=== PATIENT | female | born 1945 | race Caucasian/White ===

== ENCOUNTER → 2018-02-28 16:19 | Outpatient (CLI) | payer MEDICARE, OTHER, SELFPAY ==
--- NOTE | 2018-02-28 | DI.MRI.S_ITS ---
PROCEDURE: MR ANKLE LT WO CON INDICATIONS: Left ankle pain TECHNIQUE: Noncontrast sagittal T1 spin echo and T2 fast spin echo with fat saturation, axial proton density fast spin echo and T2 fast spin echo with fat saturation, coronal T1 spin echo and T2 fast spin echo with fat saturation through the ankle/hindfoot. COMPARISON: None. FINDINGS: Image quality: Diagnostic. Bones and joints: There is no acute fracture, dislocation, or suspicious osseous lesion involving the osseous structures of the midfoot or hindfoot. There is a moderate-sized plantar calcaneal spur with associated marrow edema. The ankle mortise is well-maintained. There are no osteochondral defects involving the tibial plafond through the talar dome. However, there are mild degenerative changes involving the tibiotalar joint and the midfoot joints. Mild marrow edema is noted involving the sesamoids of the great toe. There are prominent marginal osteophytes identified involving the distal aspect of the 1st metatarsal. However, the 1st MTP joint is not completely included on this examination. No large joint effusions are appreciated. Medial structures: The deltoid ligament is somewhat heterogeneous, suggesting scarring. The superomedial band of the spring ligament is thickened, but intact. The plantar components of the spring ligament are within normal limits. There is mild increased signal identified involving the talus posterior tendon at the level of the navicular without significant tear. The flexor hallucis longus and flexor digitorum longus tendons are intact and otherwise within normal limits. Fluid is contained within their corresponding tendon sheaths. There is moderate subcutaneous edema identified overlying the medial aspect of the ankle. The posterior tibial nerve appears to be within normal limits through the region of the tarsal tunnel. Lateral structures: There is prominent thickening and irregularity identified involving the anterior distal tibiofibular ligament without a full-thickness tear. The posterior distal tibiofibular a slightly thickened, but intact. The anterior talofibular ligament is thickened, but intact. There is extensive irregularity of the posterior talofibular ligament. Thickening and increased signal of the calcaneofibular ligament is noted. There is prominent flattening involving the peroneus brevis tendon with a moderate segment longitudinal split tear extending from just above the tip of lateral malleolus to approximately the mid calcaneus. There is corresponding tendinopathy. There also is thickening and increased signal involving the peroneus longus tendon. There is increased signal noted within the sinus tarsi. Anterior structures: The tibialis anterior, extensor hallucis longus, and extensor digitorum longus tendons appear intact. Posterior and plantar structures: Achilles tendon is thickened and mildly edematous along the distal aspect of the tendon without significant tearing. There is prominent thickening involving the medial band of the plantar fascia with associated irregularity and probable partial-thickness tearing. IMPRESSION: 1. Partial-thickness tearing of the plantar fascia with an associated moderate-sized plantar calcaneal spur. Please correlate clinically for plantar fasciitis. 2. Mild to moderate distal Achilles tendinopathy. 3. Moderate segment longitudinal split tear of the peroneus brevis tendon with corresponding tendinopathy. There is mild peroneus longus tendinopathy. 4. Moderate to high-grade partial-thickness tear of the posterior talofibular ligament. Additional lateral ankle ligament scarring is present. 5. Mild distal tibialis posterior tendinopathy. 6. Mild degenerative changes of the midfoot and hindfoot joints. 7. Probable scarring of the spring ligament without a full-thickness tear. Dictated by: Tai Leavitt M.D. on 03/01/2018 at 8:52 Approved by: Tai Leavitt M.D. on 03/01/2018 at 9:23
== END ==
PROVIDERS: Family Provider Family Medicine; PCP Family Medicine; Visit Provider Podiatrist
DX: M25.572 Pain in left ankle and joints of left foot (principal); M77.32 Calcaneal spur, left foot; S96.812A Strain of other specified muscles and tendons at ankle and foot level, left foot, initial encounter; M76.62 Achilles tendinitis, left leg; S93.492A Sprain of other ligament of left ankle, initial encounter
CPT/HCPCS: 73721

== ENCOUNTER → 2018-06-12 08:40 | Outpatient (CLI) | payer MEDICARE, OTHER, SELFPAY ==
[2018-06-12 09:40] LABS: Alanine Aminotransferase 22 IU/L (9-52); Albumin 4.2 g/dL (3.5-5.0); Albumin Globulin Ratio 1.3 (1.0-2.8); Alkaline Phosphatase 57 U/L (38-126); Aspartate Aminotransferase 28 IU/L (14-36); Bilirubin Total 0.7 mg/dL (0.2-1.3); Blood Urea Nitrogen 19 mg/dL (7-17); Calcium 9.8 mg/dL (8.4-10.2); Carbon Dioxide 32 mmol/L (22-32); Chloride 96 mmol/L (98-107); Cholesterol 250 mg/dL (140-199); Estimated Glomerular Filt Rate 54.1 mL/min (>60); Globulin 3.2 g/dL (1.7-4.1); Glucose 96 mg/dL (80-110); HDL Cholesterol 49 mg/dL (40-60); HEMOLYSIS < 15 (0-50); LDL Cholesterol Calculated 170 mg/dL (<100); Sodium 137 mmol/L (137-145); Total Protein 7.4 g/dL (6.3-8.2); Triglycerides 153 mg/dL (35-150)
[2018-06-12 10:21] LABS: Thyroid Stimulating Hormone 2.42 uIU/mL (0.47-4.68)
== END ==
PROVIDERS: PCP Family Medicine; Visit Provider Internal Medicine
DX: E78.00 Pure hypercholesterolemia, unspecified (principal); E03.9 Hypothyroidism, unspecified
CPT/HCPCS: 36415; 80053; 80061; 84443

== ENCOUNTER → 2018-06-26 12:03 | Outpatient (CLI) | payer MEDICARE, OTHER, SELFPAY ==
[2018-06-26 12:22] LABS: Hematocrit 43.1 % (36-46); Hemoglobin 14.6 g/dL (12.0-16.0); Mean Corpuscular Hemoglobin 30.5 PG (26-34); Mean Corpuscular Volume 89.7 fL (80-100); Platelet Count 258 X10^3/uL (150-400); Red Cell Distribution Width 13.4 % (11.6-14.8); White Blood Cell Count 6.2 X10^3/uL (4.5-11.0)
[2018-06-26 12:44] LABS: Neutrophils Absolute Manual 3100 /uL (3000-5900); Total Cells Counted 100
== END ==
PROVIDERS: Family Provider Family Medicine; PCP Family Medicine; Visit Provider Family Medicine
DX: D70.9 Neutropenia, unspecified (principal)
CPT/HCPCS: 36415; 85025

== ENCOUNTER 2018-08-24 09:45 | Outpatient (RCR) | payer MEDICARE, OTHER, SELFPAY ==
--- NOTE | 2018-07-20 12:55 | PT.OIE ---
Current Diagnoses Pain in right knee (07/20/18) Pain in left knee (07/20/18) Other specified enthesopathies of unspecified lower limb, excluding foot (07/20/18) Myalgia, unspecified site (07/20/18) Past Medical History (Last Updated 07/03/18 @ 09:44 by Zeenat Merino MD) Hx of neutropenia (Resolved) Hypertension (Chronic 2009) Hypothyroidism (Chronic) Actinic keratosis (Chronic) CAD (coronary artery disease) (Chronic 2008) CTS (carpal tunnel syndrome) (Chronic 2002) Chronic cough (Chronic 2008) Congenital finger deformity (Chronic 1943) Cyst of left knee joint (Chronic) Foot pain (Chronic 1989) H. pylori infection (Chronic 1998) Hayfever (Chronic) Heartburn (Chronic 2012) Hyperlipidemia (Chronic 2003) Osteoarthritis (Chronic) Osteopenia (Chronic) Retinal detachment (Chronic) Shoulder pain (Chronic 2013) Thyroid nodule (Chronic 2013) Uterine prolapse (Chronic) Abnormal Pap smear of cervix (Resolved 1972) Acne (Resolved) Breast cancer (Resolved 2002) Chicken pox (Resolved 1948) Colon polyps (Resolved 2010) History of heavy periods (Resolved) Irregular periods/menstrual cycles (Resolved) WA (myocardial infarction) (Resolved 08/23/09) Measles (Resolved 1949) Mumps (Resolved 1950) NSTEMI (non-ST elevated myocardial infarction) (Resolved 08/23/09) Painful menstrual periods (Resolved) Rubella (Resolved 1949) Skin cancer (Resolved 2006) Skin cancer (Resolved 2012) Whooping cough (Resolved 1950) Past Surgical History (Last Updated 05/28/18 @ 10:44 by Yolanda Peres) Anesthesia (Resolved) History of carpal tunnel repair (Resolved 10/2003) History of colonoscopy with polypectomy (Resolved 2010) History of hand surgery (Resolved) History of heart artery stent (Resolved 08/23/09) Status post appendectomy (Resolved 1956) Status post breast lumpectomy (Resolved 06/2003) Provider Visit Care Team Role Provider Type Isis Orozco MD Family Provider Physician Specialty: Family Practice Address: [address] [place] [address], [id number] Email: [email or web address] Zeenat Merino MD Attending Provider Physician Primary Care Provider Specialty: Family Practice Address: [address] [place] [address], [facility] Email: [email or web address] Physical Therapy Initial Evaluation PT-OP-A Visit Information Start: 07/20/18 11:21 Freq: Status: Active Protocol: Document 07/20/18 10:30 DCW (Rec: 07/20/18 12:55 DCW [id number]) Out-Patient Physical Therapy Visit Information Visit Information Visit Type Initial Evaluation Visit Start Time 10:30 Visit Stop Time 11:20 Total Visit Minutes 50 Visit Number 1 Number of JAVA SOFTWARE ARCHITECT Visits 0 Evaluation Information Evaluation Date 07/20/18 PT-OP-B Current Condition Start: 07/20/18 11:21 Freq: Status: Active Protocol: Document 07/20/18 10:30 DCW (Rec: 07/20/18 12:55 DCW [id number]) Current Condition History of Current Condition Onset Date seven months Current Complaints medial pain bilaterally, inferior to patella in pes anserine area History of Current Condition Pt is a 73 year old female presenting with a seven month history of lower extremity pain, which began as left foot pain. Pt's initial ankle MRI revealed multiple partial tears, including partial- thickness tearing of the plantar fascia with moderate- sized plantar calcaneal spur, moderate segment longitudinal split tear of the peroneus brevis tendon, and moderate to high-grade partial-thickness tear of the posterior talofibular ligament. All of this seemingly occurred without any traumatic origin. Pt began PT and wearing an AFO in April, and pt's ankle/ foot pain began to lessen, however she began to have increased pain in her medial left knee, inferior to her patella. While she was participating in PT, she was able to perform limited hiking , however pain below left knee continued, and began increasing at the same location on the right side, particularly after performing leg press exercises. Pt now feels pain in the area of her pes anserine bilaterally, with additional pain in the calf and cisneros. Pt reports pain worst when ascending and descending stairs, and when laying in bed with her legs externally rotated. Prior Treatments and Tests MRI (Per Tai Leavitt M.D. on 03/01/2018): 1. Partial-thickness tearing of the plantar fascia with an associated moderate-sized plantar calcaneal spur. Please correlate clinically for plantar fasciitis. 2. Mild to moderate distal Achilles tendinopathy. 3. Moderate segment longitudinal split tear of the peroneus brevis tendon with corresponding tendinopathy. There is mild peroneus longus tendinopathy. 4. Moderate to high-grade partial-thickness tear of the posterior talofibular ligament . Additional lateral ankle ligament scarring is present. 5. Mild distal tibialis posterior tendinopathy. 6. Mild degenerative changes of the midfoot and hindfoot joints. 7. Probable scarring of the spring ligament without a full -thickness tear. Treatment Goals Patient/Caregiver Goals Pt's goal is to not have pain and return to hiking and stairs without hurting. Pt also notes desire to simply figure out what is happening to cause this pain. Prior Functional Status Baseline Function- ADL's Independent Baseline Function- Mobility Independent Current Functional Impairments (Reported) Functional Limitations- ADL's Difficulty/pain ascending/ descending stairs, laying in bed with ER of lower extremities. Personal Factors Other Personal Factors That May Effect HTN, Osteoarthritis, CAD, Hx Therapy/Recovery Breast Ca and Skin Ca, Hx NSTEMI (2009), Partial ankle ligament and tendon tears PT-OP-C Subjective Start: 07/20/18 11:21 Freq: Status: Active Protocol: Document 07/20/18 10:30 DCW (Rec: 07/20/18 12:55 DCW [id number]) OP-PT Pain Assessment Pain Assessment Grid Paper Pain Assessment Grid Completed Yes Location Bilateral Medial Leg Intensity 5 Scale Used Numeric (1 - 10) Description Aching Dull Frequency Occasional Pain Aggravating Factors Position Stair Climbing Home Pain Medication Use Pain Medications Used Rare PT-OP-F Manual Assessment Start: 07/20/18 11:21 Freq: Status: Active Protocol: Document 07/20/18 10:30 DCW (Rec: 07/20/18 12:55 DCW [id number]) Manual Assessments Soft Tissue Assessment Soft Tissue Mobility Assessment Moderate tone with 3/4: Wincing and withdrawl tenderness to palpation to bilateral Gracilis, Sartorius, and Semitendonosis, particularly near insertion at Pes Anserine. 3/4:Wincing and withdrawl tenderness to palpation additionally along bilateral lateral gastroc and anterior tibialis along attachment to tibia. PT-OP-L Special Tests Start: 07/20/18 11:21 Freq: Status: Active Protocol: Document 07/20/18 10:30 DCW (Rec: 07/20/18 12:55 DCW [id number]) Special Tests Knee Special Tests Varus- 0 Degrees Test Results Negative Valgus- 0 Degrees Test Results Negative Posterior Draw Test Results Negative Ag Test Test Results Negative Anterior Draw Test Results Negative PT-OP-M Strength Start: 07/20/18 11:21 Freq: Status: Active Protocol: Document 07/20/18 10:30 DCW (Rec: 07/20/18 12:55 DCW [id number]) Hip Strength Hip Manual Muscle Testing Right Flexion (L2) 4+ Good+ Extension (S1) 5 Normal Abduction 5 Normal Adduction 4+ Good+ External Rotation 4+ Good+ Internal Rotation 4+ Good+ Comments Specific testing of right Sartorius demonstrated increased pain and MMT of 4/5. Left Flexion (L2) 4 Good Extension (S1) 5 Normal Abduction 5 Normal Adduction 4+ Good+ External Rotation 4- Good- Internal Rotation 4+ Good+ Comments Specific testing of left Sartorius demonstrated increased pain and MMT of 3+/5 . PT-OP-Q Treatments Start: 07/20/18 11:21 Freq: Status: Active Protocol: Document 07/20/18 10:30 DCW (Rec: 07/20/18 12:55 DCW [id number]) Manual Therapy Treatment Taping Sartorius Taping Body Location Bilateral Sartorius starting at insertion Type of Tape Kinesio Tape PT-OP-T Assessment and Plan Start: 07/20/18 11:21 Freq: Status: Active Protocol: Document 07/20/18 10:30 DCW (Rec: 07/20/18 12:55 DCW [id number]) Physical Therapy Assessment Rehab Potential Rehabilitation Potential Good Evaluation Complexity Number of Personal Factors/Comorbidities 3 or More Number of Body Systems Impaired 3 Clinical Presentation at Evaluation Unstable Impairments Impairments Functional Activities Pain Soft Tissue Mobility Strength Tone Goals Three Impairment Tenderness to Palpation Usp Goal (LTG) Pt to report 09/21: Complaint of pain with palpation along her bilateral Pes Anserine. LTG Duration 09/19/18 Two Impairment Difficulty with stairs Family Psychologist Goal (LTG) Pt to ascend and descend two flights of stairs with no increase in symptoms LTG Duration 09/19/18 One Impairment Pt does not have appropriate home exercise program Short Term Goal (STG) Pt to be independent and complaint with appropriate HEP STG Duration 08/19/18 Assessment Summary Assessment Pt presents with signs and symptoms consistent with bilateral pes anserine tendonitis. With palpation, pt has hypertonia in her gracilis, sartorius, and semitendonosis bilaterally. Pt will likely benefit from strengthening and flexibility training, as well as modalities to control pain and inflammation, including e- stim, ultrasound, and Iontophoresis with dexamethasone. If pt does not progress within 3-4 weeks, an MRI may be indicated, with her history of multiple ligament and tendon tears with non- traumatic origins. Physical Therapy Plan Frequency and Duration Frequency of Treatment 2x/Week Duration of Treatment 10 weeks Plan of Care Start Date 07/20/18 Plan of Care End Date 09/28/18 Therapeutic Interventions Therapeutic Interventions Aquatic Therapy Home Exercise Program Joint Mobilizations Manual Therapy Patient/Caregiver Education Self-Care/Home Management Soft Tissue Mobilization Taping Therapeutic Activities Therapeutic Exercises Modalities Cold Pack/Ice Massage Electric Stimulation Hot Packs Iontophoresis Ultrasound Other Therapeutic Interventions Iontophoresis /c Dexamethasone : 4 mg/mL Next Visit Focus/Plan Next Note Type Treatment Note Next Visit Plan STM, Flexibility, Strengthening, US, Taping, Ionto
--- NOTE | 2018-07-20 12:55 | PT.OPPOC ---
Current Diagnoses Pain in right knee (07/20/18) Pain in left knee (07/20/18) Other specified enthesopathies of unspecified lower limb, excluding foot (07/20/18) Myalgia, unspecified site (07/20/18) Provider Visit Care Team Role Provider Type Isis Orozco MD Family Provider Physician Specialty: [facility] Address: [address] [place] [address], [id number] Email: [email or web address] Zeenat Merino MD Attending Provider Physician Primary Care Provider Specialty: [facility] Address: [address] [place] [address], [id number] Email: [email or web address] Plan Of Care PT-OP-T Assessment and Plan Start: 07/20/18 11:21 Freq: Status: Active Protocol: Document 07/20/18 10:30 DCW (Rec: 07/20/18 12:55 DCW [id number]) Physical Therapy Assessment Rehab Potential Rehabilitation Potential Good Evaluation Complexity Number of Personal Factors/Comorbidities 3 or More Number of Body Systems Impaired 3 Clinical Presentation at Evaluation Unstable Impairments Impairments Functional Activities Pain Soft Tissue Mobility Strength Tone Goals Three Impairment Tenderness to Palpation Education Research Analyst Goal (LTG) Pt to report 09/21: Complaint of pain with palpation along her bilateral Pes Anserine. LTG Duration 09/19/18 Two Impairment Difficulty with stairs Education Research Analyst Goal (LTG) Pt to ascend and descend two flights of stairs with no increase in symptoms LTG Duration 09/19/18 One Impairment Pt does not have appropriate home exercise program Short Term Goal (STG) Pt to be independent and complaint with appropriate HEP STG Duration 08/19/18 Assessment Summary Assessment Pt presents with signs and symptoms consistent with bilateral pes anserine tendonitis. With palpation, pt has hypertonia in her gracilis, sartorius, and semitendonosis bilaterally. Pt will likely benefit from strengthening and flexibility training, as well as modalities to control pain and inflammation, including e- stim, ultrasound, and Iontophoresis with dexamethasone. If pt does not progress within 3-4 weeks, an MRI may be indicated, with her history of multiple ligament and tendon tears with non- traumatic origins. Physical Therapy Plan Frequency and Duration Frequency of Treatment 2x/Week Duration of Treatment 10 weeks Plan of Care Start Date 07/20/18 Plan of Care End Date 09/28/18 Therapeutic Interventions Therapeutic Interventions Aquatic Therapy Home Exercise Program Joint Mobilizations Manual Therapy Patient/Caregiver Education Self-Care/Home Management Soft Tissue Mobilization Taping Therapeutic Activities Therapeutic Exercises Modalities Cold Pack/Ice Massage Electric Stimulation Hot Packs Iontophoresis Ultrasound Other Therapeutic Interventions Iontophoresis /c Dexamethasone : 4 mg/mL Next Visit Focus/Plan Next Note Type Treatment Note Next Visit Plan STM, Flexibility, Strengthening, US, Taping, Ionto Plan of Care Dates Plan of Care Start Date 07/20/18 Plan of Care End Date 09/28/18 Please Sign and Return: I have reviewed this Plan of Care and certify that the skilled therapy services above are required to meet the patient?s needs. Physician Signature Date Printed Name and Credentials Clinical Instructor Signature Printed Name and Credentials
--- NOTE | 2018-07-23 17:58 | PT.OTN ---
Current Diagnoses Pain in right knee (07/23/18) Pain in left knee (07/23/18) Physical Therapy Treatment Note PT-OP-A Visit Information Start: 07/20/18 11:21 Freq: Status: Active Protocol: Document 07/23/18 15:15 DCW (Rec: 07/23/18 17:56 DCW [id number]) Out-Patient Physical Therapy Visit Information Visit Information Visit Type Treatment Note Visit Start Time 15:15 Visit Stop Time 16:00 Total Visit Minutes 45 Visit Number 2 Number of PHOTO MANAGER Visits 0 Evaluation Information Evaluation Date 07/20/18 PT-OP-B Current Condition Start: 07/20/18 11:21 Freq: Status: Active Protocol: Document 07/20/18 10:30 DCW (Rec: 07/20/18 12:55 DCW [id number]) Current Condition History of Current Condition Onset Date seven months Current Complaints medial pain bilaterally, inferior to patella in pes anserine area History of Current Condition Pt is a 73 year old female presenting with a seven month history of lower extremity pain, which began as left foot pain. Pt's initial ankle MRI revealed multiple partial tears, including partial- thickness tearing of the plantar fascia with moderate- sized plantar calcaneal spur, moderate segment longitudinal split tear of the peroneus brevis tendon, and moderate to high-grade partial-thickness tear of the posterior talofibular ligament. All of this seemingly occurred without any traumatic origin. Pt began PT and wearing an AFO in April, and pt's ankle/ foot pain began to lessen, however she began to have increased pain in her medial left knee, inferior to her patella. While she was participating in PT, she was able to perform limited hiking , however pain below left knee continued, and began increasing at the same location on the right side, particularly after performing leg press exercises. Pt now feels pain in the area of her pes anserine bilaterally, with additional pain in the calf and cisneros. Pt reports pain worst when ascending and descending stairs, and when laying in bed with her legs externally rotated. Prior Treatments and Tests MRI (Per Tai Leavitt M.D. on 03/01/2018): 1. Partial-thickness tearing of the plantar fascia with an associated moderate-sized plantar calcaneal spur. Please correlate clinically for plantar fasciitis. 2. Mild to moderate distal Achilles tendinopathy. 3. Moderate segment longitudinal split tear of the peroneus brevis tendon with corresponding tendinopathy. There is mild peroneus longus tendinopathy. 4. Moderate to high-grade partial-thickness tear of the posterior talofibular ligament . Additional lateral ankle ligament scarring is present. 5. Mild distal tibialis posterior tendinopathy. 6. Mild degenerative changes of the midfoot and hindfoot joints. 7. Probable scarring of the spring ligament without a full -thickness tear. Treatment Goals Patient/Caregiver Goals Pt's goal is to not have pain and return to hiking and stairs without hurting. Pt also notes desire to simply figure out what is happening to cause this pain. Prior Functional Status Baseline Function- ADL's Independent Baseline Function- Mobility Independent Current Functional Impairments (Reported) Functional Limitations- ADL's Difficulty/pain ascending/ descending stairs, laying in bed with ER of lower extremities. Personal Factors Other Personal Factors That May Effect HTN, Osteoarthritis, CAD, Hx Therapy/Recovery Breast Ca and Skin Ca, Hx NSTEMI (2009), Partial ankle ligament and tendon tears PT-OP-C Subjective Start: 07/20/18 11:21 Freq: Status: Active Protocol: Document 07/23/18 15:15 DCW (Rec: 07/23/18 17:56 DCW [id number]) OP-PT Subjective Patient Comments Patient Comments Pt reported she was a little achy when she woke up today, but that it probably had something to do with working in the yard yesterday. PT-OP-F Manual Assessment Start: 07/20/18 11:21 Freq: Status: Active Protocol: Document 07/20/18 10:30 DCW (Rec: 07/20/18 12:55 DCW [id number]) Manual Assessments Soft Tissue Assessment Soft Tissue Mobility Assessment Moderate tone with 3/4: Wincing and withdrawl tenderness to palpation to bilateral Gracilis, Sartorius, and Semitendonosis, particularly near insertion at Pes Anserine. 3/4:Wincing and withdrawl tenderness to palpation additionally along bilateral lateral gastroc and anterior tibialis along attachment to tibia. PT-OP-L Special Tests Start: 07/20/18 11:21 Freq: Status: Active Protocol: Document 07/20/18 10:30 DCW (Rec: 07/20/18 12:55 DCW [id number]) Special Tests Knee Special Tests Varus- 0 Degrees Test Results Negative Valgus- 0 Degrees Test Results Negative Posterior Draw Test Results Negative Ag Test Test Results Negative Anterior Draw Test Results Negative PT-OP-M Strength Start: 07/20/18 11:21 Freq: Status: Active Protocol: Document 07/20/18 10:30 DCW (Rec: 07/20/18 12:55 DCW [id number]) Hip Strength Hip Manual Muscle Testing Right Flexion (L2) 4+ Good+ Extension (S1) 5 Normal Abduction 5 Normal Adduction 4+ Good+ External Rotation 4+ Good+ Internal Rotation 4+ Good+ Comments Specific testing of right Sartorius demonstrated increased pain and MMT of 4/5. Left Flexion (L2) 4 Good Extension (S1) 5 Normal Abduction 5 Normal Adduction 4+ Good+ External Rotation 4- Good- Internal Rotation 4+ Good+ Comments Specific testing of left Sartorius demonstrated increased pain and MMT of 3+/5 . PT-OP-Q Treatments Start: 07/20/18 11:21 Freq: Status: Active Protocol: Document 07/23/18 15:15 DCW (Rec: 07/23/18 17:56 DCW [id number]) Gym Equipment Shuttle Recovery Bilateral Squats Resistance 50# Shuttle Recovery Platform Stable Therapeutic Exercises Supine Exercises Piriformis Stretch Supine Exercise Name Piriformis stretch Side bilateral Comments passive Single Oqez-vh-Wdaim Supine Exercise Name KtC Side bilateral Comments Passive Adductor Stretch Supine Exercise Name Supine add stretch Side bilateral Comments Passive Hamstring Stretch Supine Exercise Name Supine HS stretch Side bilateral Comments Passive Sidelying Exercises Reverse Clam Shell Sidelying Exercise Name Reverse clam shell Side bilateral Sitting Exercises Resisted Internal Rotation Sitting Exercise Name T-band resisted IR Side bilateral Resistance Lv 1 Equipment Used T-band Standing Exercises Hip Internal Rotation Standing Exercise Name Kneel on stool, IR AROM Manual Therapy Treatment Soft Tissue Mobilization Adductor Body Location bilateral adductors Mobilization Type Myofascial Release Sustained Pressure PT-OP-R Modalities Start: 07/20/18 11:21 Freq: Status: Active Protocol: Document 07/23/18 15:15 DCW (Rec: 07/23/18 17:58 DCW [id number]) Ultrasound Therapy Treatment Right Medial Knee Treatment Duration (minutes) 4 Patient Position Hooklying Coupling Medium Ultrasound Gel Applicator Size (cm2) 5 Frequency Setting (mHz) 3 Mode Setting Continuous Duty Cycle 100% Intensity Setting (w/cm2) 0.8 Left Medial Knee Treatment Duration (minutes) 4 Patient Position Hooklying Coupling Medium Ultrasound Gel Applicator Size (cm2) 5 Frequency Setting (mHz) 3 Mode Setting Continuous Duty Cycle 100% Intensity Setting (w/cm2) 0.8 PT-OP-T Assessment and Plan Start: 07/20/18 11:21 Freq: Status: Active Protocol: Document 07/23/18 15:15 DCW (Rec: 07/23/18 17:56 DCW [id number]) Physical Therapy Assessment Impairments Impairments Functional Activities Pain Soft Tissue Mobility Strength Tone Goals Three Impairment Tenderness to Palpation Correction Goal (LTG) Pt to report 1/4: Complaint of pain with palpation along her bilateral Pes Anserine. LTG Duration 09/19/18 Two Impairment Difficulty with stairs Transit Mix Operator Goal (LTG) Pt to ascend and descend two flights of stairs with no increase in symptoms LTG Duration 09/19/18 One Impairment Pt does not have appropriate home exercise program Short Term Goal (STG) Pt to be independent and complaint with appropriate HEP STG Duration 08/19/18 Assessment Summary Assessment Pt tolerated all new treatment well, no complaints. Physical Therapy Plan Frequency and Duration Frequency of Treatment 2x/Week Duration of Treatment 10 weeks Plan of Care Start Date 07/20/18 Plan of Care End Date 09/28/18 Therapeutic Interventions Therapeutic Interventions Aquatic Therapy Home Exercise Program Joint Mobilizations Manual Therapy Patient/Caregiver Education Self-Care/Home Management Soft Tissue Mobilization Taping Therapeutic Activities Therapeutic Exercises Modalities Cold Pack/Ice Massage Electric Stimulation Hot Packs Iontophoresis Ultrasound Other Therapeutic Interventions Iontophoresis /c Dexamethasone : 4 mg/mL Next Visit Focus/Plan Next Note Type Treatment Note Next Visit Plan STM, Flexibility, Strengthening, US, Taping, Ionto
--- NOTE | 2018-07-27 17:07 | PT.OTN ---
Current Diagnoses Pain in right knee (07/27/18) Pain in left knee (07/27/18) Physical Therapy Treatment Note PT-OP-A Visit Information Start: 07/20/18 11:21 Freq: Status: Active Protocol: Document 07/27/18 09:45 DCW (Rec: 07/27/18 17:07 DCW [id number]) Out-Patient Physical Therapy Visit Information Visit Information Visit Type Treatment Note Visit Start Time 09:45 Visit Stop Time 10:30 Total Visit Minutes 45 Visit Number 3 Number of TRAFFIC MANAGER Visits 0 Evaluation Information Evaluation Date 07/20/18 PT-OP-B Current Condition Start: 07/20/18 11:21 Freq: Status: Active Protocol: Document 07/20/18 10:30 DCW (Rec: 07/20/18 12:55 DCW [id number]) Current Condition History of Current Condition Onset Date seven months Current Complaints medial pain bilaterally, inferior to patella in pes anserine area History of Current Condition Pt is a 73 year old female presenting with a seven month history of lower extremity pain, which began as left foot pain. Pt's initial ankle MRI revealed multiple partial tears, including partial- thickness tearing of the plantar fascia with moderate- sized plantar calcaneal spur, moderate segment longitudinal split tear of the peroneus brevis tendon, and moderate to high-grade partial-thickness tear of the posterior talofibular ligament. All of this seemingly occurred without any traumatic origin. Pt began PT and wearing an AFO in April, and pt's ankle/ foot pain began to lessen, however she began to have increased pain in her medial left knee, inferior to her patella. While she was participating in PT, she was able to perform limited hiking , however pain below left knee continued, and began increasing at the same location on the right side, particularly after performing leg press exercises. Pt now feels pain in the area of her pes anserine bilaterally, with additional pain in the calf and cisneros. Pt reports pain worst when ascending and descending stairs, and when laying in bed with her legs externally rotated. Prior Treatments and Tests MRI (Per Tai Leavitt M.D. on 03/01/2018): 1. Partial-thickness tearing of the plantar fascia with an associated moderate-sized plantar calcaneal spur. Please correlate clinically for plantar fasciitis. 2. Mild to moderate distal Achilles tendinopathy. 3. Moderate segment longitudinal split tear of the peroneus brevis tendon with corresponding tendinopathy. There is mild peroneus longus tendinopathy. 4. Moderate to high-grade partial-thickness tear of the posterior talofibular ligament . Additional lateral ankle ligament scarring is present. 5. Mild distal tibialis posterior tendinopathy. 6. Mild degenerative changes of the midfoot and hindfoot joints. 7. Probable scarring of the spring ligament without a full -thickness tear. Treatment Goals Patient/Caregiver Goals Pt's goal is to not have pain and return to hiking and stairs without hurting. Pt also notes desire to simply figure out what is happening to cause this pain. Prior Functional Status Baseline Function- ADL's Independent Baseline Function- Mobility Independent Current Functional Impairments (Reported) Functional Limitations- ADL's Difficulty/pain ascending/ descending stairs, laying in bed with ER of lower extremities. Personal Factors Other Personal Factors That May Effect HTN, Osteoarthritis, CAD, Hx Therapy/Recovery Breast Ca and Skin Ca, Hx NSTEMI (2009), Partial ankle ligament and tendon tears PT-OP-C Subjective Start: 07/20/18 11:21 Freq: Status: Active Protocol: Document 07/27/18 09:45 DCW (Rec: 07/27/18 17:07 DCW [id number]) OP-PT Subjective Patient Comments Patient Comments Pt reported bruising along her medial knee and adductors from her last treatment session. Additionally, pt reports she was assessing her own legs, and feels like there are too many small, painful lumps underneath her skin for her complaints to be simply muscular. Pt requested therapist assess and help decide next step. PT-OP-F Manual Assessment Start: 07/20/18 11:21 Freq: Status: Active Protocol: Document 07/27/18 09:45 DCW (Rec: 07/27/18 17:07 DCW [id number]) Manual Assessments Soft Tissue Assessment Soft Tissue Mobility Assessment Pt does have noticeable subdermal nodules throughout her lower extremities, especially along lateral thigh , anterior cisneros, and medial knee. PT-OP-L Special Tests Start: 07/20/18 11:21 Freq: Status: Active Protocol: Document 07/20/18 10:30 DCW (Rec: 07/20/18 12:55 DCW [id number]) Special Tests Knee Special Tests Varus- 0 Degrees Test Results Negative Valgus- 0 Degrees Test Results Negative Posterior Draw Test Results Negative Ag Test Test Results Negative Anterior Draw Test Results Negative PT-OP-M Strength Start: 07/20/18 11:21 Freq: Status: Active Protocol: Document 07/20/18 10:30 DCW (Rec: 07/20/18 12:55 DCW [id number]) Hip Strength Hip Manual Muscle Testing Right Flexion (L2) 4+ Good+ Extension (S1) 5 Normal Abduction 5 Normal Adduction 4+ Good+ External Rotation 4+ Good+ Internal Rotation 4+ Good+ Comments Specific testing of right Sartorius demonstrated increased pain and MMT of 4/5. Left Flexion (L2) 4 Good Extension (S1) 5 Normal Abduction 5 Normal Adduction 4+ Good+ External Rotation 4- Good- Internal Rotation 4+ Good+ Comments Specific testing of left Sartorius demonstrated increased pain and MMT of 3+/5 . PT-OP-Q Treatments Start: 07/20/18 11:21 Freq: Status: Active Protocol: Document 07/27/18 09:45 DCW (Rec: 07/27/18 17:07 DCW [id number]) Cardio Equipment Recumbent Bicycle Duration (Minutes) 5 Resistance 2 Seat Position 4 Therapeutic Exercises Sidelying Exercises Reverse Clam Shell Sidelying Exercise Name Reverse clam shell Side bilateral Sitting Exercises Resisted Internal Rotation Sitting Exercise Name T-band resisted IR Side bilateral Resistance Lv 1 Equipment Used T-band Manual Therapy Treatment Other Other Manual Treatments Assessment of pt's reported subdermal nodules PT-OP-R Modalities Start: 07/20/18 11:21 Freq: Status: Active Protocol: Document 07/23/18 15:15 DCW (Rec: 07/23/18 17:58 DCW [id number]) Ultrasound Therapy Treatment Right Medial Knee Treatment Duration (minutes) 4 Patient Position Hooklying Coupling Medium Ultrasound Gel Applicator Size (cm2) 5 Frequency Setting (mHz) 3 Mode Setting Continuous Duty Cycle 100% Intensity Setting (w/cm2) 0.8 Left Medial Knee Treatment Duration (minutes) 4 Patient Position Hooklying Coupling Medium Ultrasound Gel Applicator Size (cm2) 5 Frequency Setting (mHz) 3 Mode Setting Continuous Duty Cycle 100% Intensity Setting (w/cm2) 0.8 PT-OP-T Assessment and Plan Start: 07/20/18 11:21 Freq: Status: Active Protocol: Document 07/27/18 09:45 DCW (Rec: 07/27/18 17:07 DCW [id number]) Physical Therapy Assessment Impairments Impairments Functional Activities Pain Soft Tissue Mobility Strength Tone Goals Three Impairment Tenderness to Palpation Box Closing Machine Operator Goal (LTG) Pt to report 09/21: Complaint of pain with palpation along her bilateral Pes Anserine. LTG Duration 09/19/18 Two Impairment Difficulty with stairs Penitentiary Goal (LTG) Pt to ascend and descend two flights of stairs with no increase in symptoms LTG Duration 09/19/18 One Impairment Pt does not have appropriate home exercise program Short Term Goal (STG) Pt to be independent and complaint with appropriate HEP STG Duration 08/19/18 Assessment Summary Assessment Pt does have noticeable subdermal nodules throughout her lower extremities, especially along lateral thigh , anterior cisneros, and medial knee. It is possible that they are simply tight fascia, however her significant tenderness to light palpation suggests there may be some other cause. Discussed plan with pt, and she would like to continue PT for her original complaint of pain, however also would like to return to her PCP for follow-up. Physical Therapy Plan Frequency and Duration Frequency of Treatment 2x/Week Duration of Treatment 10 weeks Plan of Care Start Date 07/20/18 Plan of Care End Date 09/28/18 Therapeutic Interventions Therapeutic Interventions Aquatic Therapy Home Exercise Program Joint Mobilizations Manual Therapy Patient/Caregiver Education Self-Care/Home Management Soft Tissue Mobilization Taping Therapeutic Activities Therapeutic Exercises Modalities Cold Pack/Ice Massage Electric Stimulation Hot Packs Iontophoresis Ultrasound Other Therapeutic Interventions Iontophoresis /c Dexamethasone : 4 mg/mL Next Visit Focus/Plan Next Note Type Treatment Note Next Visit Plan STM, Flexibility, Strengthening, US, Taping, Ionto
--- NOTE | 2018-07-30 15:58 | PT.OTN ---
Current Diagnoses Pain in right knee (07/30/18) Pain in left knee (07/30/18) Physical Therapy Treatment Note PT-OP-A Visit Information Start: 07/20/18 11:21 Freq: Status: Active Protocol: Document 07/30/18 15:15 DCW (Rec: 07/30/18 15:57 DCW [id number]) Out-Patient Physical Therapy Visit Information Visit Information Visit Type Treatment Note Visit Start Time 15:15 Visit Stop Time 16:00 Total Visit Minutes 45 Visit Number 4 Number of MOLD STRIPPER Visits 0 Evaluation Information Evaluation Date 07/20/18 PT-OP-B Current Condition Start: 07/20/18 11:21 Freq: Status: Active Protocol: Document 07/20/18 10:30 DCW (Rec: 07/20/18 12:55 DCW [id number]) Current Condition History of Current Condition Onset Date seven months Current Complaints medial pain bilaterally, inferior to patella in pes anserine area History of Current Condition Pt is a 73 year old female presenting with a seven month history of lower extremity pain, which began as left foot pain. Pt's initial ankle MRI revealed multiple partial tears, including partial- thickness tearing of the plantar fascia with moderate- sized plantar calcaneal spur, moderate segment longitudinal split tear of the peroneus brevis tendon, and moderate to high-grade partial-thickness tear of the posterior talofibular ligament. All of this seemingly occurred without any traumatic origin. Pt began PT and wearing an AFO in April, and pt's ankle/ foot pain began to lessen, however she began to have increased pain in her medial left knee, inferior to her patella. While she was participating in PT, she was able to perform limited hiking , however pain below left knee continued, and began increasing at the same location on the right side, particularly after performing leg press exercises. Pt now feels pain in the area of her pes anserine bilaterally, with additional pain in the calf and cisneros. Pt reports pain worst when ascending and descending stairs, and when laying in bed with her legs externally rotated. Prior Treatments and Tests MRI (Per Tai Leavitt M.D. on 03/01/2018): 1. Partial-thickness tearing of the plantar fascia with an associated moderate-sized plantar calcaneal spur. Please correlate clinically for plantar fasciitis. 2. Mild to moderate distal Achilles tendinopathy. 3. Moderate segment longitudinal split tear of the peroneus brevis tendon with corresponding tendinopathy. There is mild peroneus longus tendinopathy. 4. Moderate to high-grade partial-thickness tear of the posterior talofibular ligament . Additional lateral ankle ligament scarring is present. 5. Mild distal tibialis posterior tendinopathy. 6. Mild degenerative changes of the midfoot and hindfoot joints. 7. Probable scarring of the spring ligament without a full -thickness tear. Treatment Goals Patient/Caregiver Goals Pt's goal is to not have pain and return to hiking and stairs without hurting. Pt also notes desire to simply figure out what is happening to cause this pain. Prior Functional Status Baseline Function- ADL's Independent Baseline Function- Mobility Independent Current Functional Impairments (Reported) Functional Limitations- ADL's Difficulty/pain ascending/ descending stairs, laying in bed with ER of lower extremities. Personal Factors Other Personal Factors That May Effect HTN, Osteoarthritis, CAD, Hx Therapy/Recovery Breast Ca and Skin Ca, Hx NSTEMI (2009), Partial ankle ligament and tendon tears PT-OP-C Subjective Start: 07/20/18 11:21 Freq: Status: Active Protocol: Document 07/30/18 15:15 DCW (Rec: 07/30/18 15:57 DCW [id number]) OP-PT Subjective Patient Comments Patient Comments Pt notes increased right knee pain, reports that it has kept her awake the previous two nights. PT-OP-F Manual Assessment Start: 07/20/18 11:21 Freq: Status: Active Protocol: Document 07/27/18 09:45 DCW (Rec: 07/27/18 17:07 DCW [id number]) Manual Assessments Soft Tissue Assessment Soft Tissue Mobility Assessment Pt does have noticeable subdermal nodules throughout her lower extremities, especially along lateral thigh , anterior cisneros, and medial knee. PT-OP-L Special Tests Start: 07/20/18 11:21 Freq: Status: Active Protocol: Document 07/20/18 10:30 DCW (Rec: 07/20/18 12:55 DCW [id number]) Special Tests Knee Special Tests Varus- 0 Degrees Test Results Negative Valgus- 0 Degrees Test Results Negative Posterior Draw Test Results Negative Ag Test Test Results Negative Anterior Draw Test Results Negative PT-OP-M Strength Start: 07/20/18 11:21 Freq: Status: Active Protocol: Document 07/20/18 10:30 DCW (Rec: 07/20/18 12:55 DCW [id number]) Hip Strength Hip Manual Muscle Testing Right Flexion (L2) 4+ Good+ Extension (S1) 5 Normal Abduction 5 Normal Adduction 4+ Good+ External Rotation 4+ Good+ Internal Rotation 4+ Good+ Comments Specific testing of right Sartorius demonstrated increased pain and MMT of 4/5. Left Flexion (L2) 4 Good Extension (S1) 5 Normal Abduction 5 Normal Adduction 4+ Good+ External Rotation 4- Good- Internal Rotation 4+ Good+ Comments Specific testing of left Sartorius demonstrated increased pain and MMT of 3+/5 . PT-OP-Q Treatments Start: 07/20/18 11:21 Freq: Status: Active Protocol: Document 07/30/18 15:15 DCW (Rec: 07/30/18 15:57 DCW [id number]) Therapeutic Exercises Supine Exercises Bridging /c Add ball squeeze Supine Exercise Name Bridging Equipment Used Small ball Comments Adductor ball squeeze SLR /c ER Supine Exercise Name ER Straight Leg Raise Side bilateral Hamstring Stretch Supine Exercise Name Supine HS stretch Side bilateral Comments Passive Sidelying Exercises Hip Adduction Sidelying Exercise Name Hip Adduction Side bilateral Reverse Clam Shell Sidelying Exercise Name Reverse clam shell Side bilateral Manual Therapy Treatment Soft Tissue Mobilization Pes Anserine Body Location Cross-friction at bilateral pes anserine Mobilization Type Cross-Friction Body Position Hooklying Adductor Body Location bilateral adductors Mobilization Type Myofascial Release Sustained Pressure PT-OP-R Modalities Start: 07/20/18 11:21 Freq: Status: Active Protocol: Document 07/23/18 15:15 DCW (Rec: 07/23/18 17:58 DCW [id number]) Ultrasound Therapy Treatment Right Medial Knee Treatment Duration (minutes) 4 Patient Position Hooklying Coupling Medium Ultrasound Gel Applicator Size (cm2) 5 Frequency Setting (mHz) 3 Mode Setting Continuous Duty Cycle 100% Intensity Setting (w/cm2) 0.8 Left Medial Knee Treatment Duration (minutes) 4 Patient Position Hooklying Coupling Medium Ultrasound Gel Applicator Size (cm2) 5 Frequency Setting (mHz) 3 Mode Setting Continuous Duty Cycle 100% Intensity Setting (w/cm2) 0.8 PT-OP-T Assessment and Plan Start: 07/20/18 11:21 Freq: Status: Active Protocol: Document 07/30/18 15:15 DCW (Rec: 07/30/18 15:57 DCW [id number]) Physical Therapy Assessment Impairments Impairments Functional Activities Pain Soft Tissue Mobility Strength Tone Goals Three Impairment Tenderness to Palpation Skilled Nursing Goal (LTG) Pt to report 1/4: Complaint of pain with palpation along her bilateral Pes Anserine. LTG Duration 09/19/18 Two Impairment Difficulty with stairs Skilled Nursing Goal (LTG) Pt to ascend and descend two flights of stairs with no increase in symptoms LTG Duration 09/19/18 One Impairment Pt does not have appropriate home exercise program Short Term Goal (STG) Pt to be independent and complaint with appropriate HEP STG Duration 08/19/18 Assessment Summary Assessment Pt complained of mild soreness and sharp pain throughout treatment today, but was able to tolerate treatment well. Physical Therapy Plan Frequency and Duration Frequency of Treatment 2x/Week Duration of Treatment 10 weeks Plan of Care Start Date 07/20/18 Plan of Care End Date 09/28/18 Therapeutic Interventions Therapeutic Interventions Aquatic Therapy Home Exercise Program Joint Mobilizations Manual Therapy Patient/Caregiver Education Self-Care/Home Management Soft Tissue Mobilization Taping Therapeutic Activities Therapeutic Exercises Modalities Cold Pack/Ice Massage Electric Stimulation Hot Packs Iontophoresis Ultrasound Other Therapeutic Interventions Iontophoresis /c Dexamethasone : 4 mg/mL Next Visit Focus/Plan Next Note Type Treatment Note Next Visit Plan STM, Flexibility, Strengthening, US, Taping, Ionto
--- NOTE | 2018-07-30 16:13 | PT.OTN ---
Current Diagnoses Pain in right knee (07/30/18) Pain in left knee (07/30/18) Physical Therapy Treatment Note PT-OP-A Visit Information Start: 07/20/18 11:21 Freq: Status: Active Protocol: Document 07/30/18 15:15 DCW (Rec: 07/30/18 15:57 DCW [id number]) Out-Patient Physical Therapy Visit Information Visit Information Visit Type Treatment Note Visit Start Time 15:15 Visit Stop Time 16:00 Total Visit Minutes 45 Visit Number 4 Number of RECRUITMENT DIRECTOR Visits 0 Evaluation Information Evaluation Date 07/20/18 PT-OP-B Current Condition Start: 07/20/18 11:21 Freq: Status: Active Protocol: Document 07/20/18 10:30 DCW (Rec: 07/20/18 12:55 DCW [id number]) Current Condition History of Current Condition Onset Date seven months Current Complaints medial pain bilaterally, inferior to patella in pes anserine area History of Current Condition Pt is a 73 year old female presenting with a seven month history of lower extremity pain, which began as left foot pain. Pt's initial ankle MRI revealed multiple partial tears, including partial- thickness tearing of the plantar fascia with moderate- sized plantar calcaneal spur, moderate segment longitudinal split tear of the peroneus brevis tendon, and moderate to high-grade partial-thickness tear of the posterior talofibular ligament. All of this seemingly occurred without any traumatic origin. Pt began PT and wearing an AFO in April, and pt's ankle/ foot pain began to lessen, however she began to have increased pain in her medial left knee, inferior to her patella. While she was participating in PT, she was able to perform limited hiking , however pain below left knee continued, and began increasing at the same location on the right side, particularly after performing leg press exercises. Pt now feels pain in the area of her pes anserine bilaterally, with additional pain in the calf and cisneros. Pt reports pain worst when ascending and descending stairs, and when laying in bed with her legs externally rotated. Prior Treatments and Tests MRI (Per Tai Leavitt M.D. on 03/01/2018): 1. Partial-thickness tearing of the plantar fascia with an associated moderate-sized plantar calcaneal spur. Please correlate clinically for plantar fasciitis. 2. Mild to moderate distal Achilles tendinopathy. 3. Moderate segment longitudinal split tear of the peroneus brevis tendon with corresponding tendinopathy. There is mild peroneus longus tendinopathy. 4. Moderate to high-grade partial-thickness tear of the posterior talofibular ligament . Additional lateral ankle ligament scarring is present. 5. Mild distal tibialis posterior tendinopathy. 6. Mild degenerative changes of the midfoot and hindfoot joints. 7. Probable scarring of the spring ligament without a full -thickness tear. Treatment Goals Patient/Caregiver Goals Pt's goal is to not have pain and return to hiking and stairs without hurting. Pt also notes desire to simply figure out what is happening to cause this pain. Prior Functional Status Baseline Function- ADL's Independent Baseline Function- Mobility Independent Current Functional Impairments (Reported) Functional Limitations- ADL's Difficulty/pain ascending/ descending stairs, laying in bed with ER of lower extremities. Personal Factors Other Personal Factors That May Effect HTN, Osteoarthritis, CAD, Hx Therapy/Recovery Breast Ca and Skin Ca, Hx NSTEMI (2009), Partial ankle ligament and tendon tears PT-OP-C Subjective Start: 07/20/18 11:21 Freq: Status: Active Protocol: Document 07/30/18 15:15 DCW (Rec: 07/30/18 15:57 DCW [id number]) OP-PT Subjective Patient Comments Patient Comments Pt notes increased right knee pain, reports that it has kept her awake the previous two nights. PT-OP-F Manual Assessment Start: 07/20/18 11:21 Freq: Status: Active Protocol: Document 07/27/18 09:45 DCW (Rec: 07/27/18 17:07 DCW [id number]) Manual Assessments Soft Tissue Assessment Soft Tissue Mobility Assessment Pt does have noticeable subdermal nodules throughout her lower extremities, especially along lateral thigh , anterior cisneros, and medial knee. PT-OP-L Special Tests Start: 07/20/18 11:21 Freq: Status: Active Protocol: Document 07/20/18 10:30 DCW (Rec: 07/20/18 12:55 DCW [id number]) Special Tests Knee Special Tests Varus- 0 Degrees Test Results Negative Valgus- 0 Degrees Test Results Negative Posterior Draw Test Results Negative Ag Test Test Results Negative Anterior Draw Test Results Negative PT-OP-M Strength Start: 07/20/18 11:21 Freq: Status: Active Protocol: Document 07/20/18 10:30 DCW (Rec: 07/20/18 12:55 DCW [id number]) Hip Strength Hip Manual Muscle Testing Right Flexion (L2) 4+ Good+ Extension (S1) 5 Normal Abduction 5 Normal Adduction 4+ Good+ External Rotation 4+ Good+ Internal Rotation 4+ Good+ Comments Specific testing of right Sartorius demonstrated increased pain and MMT of 4/5. Left Flexion (L2) 4 Good Extension (S1) 5 Normal Abduction 5 Normal Adduction 4+ Good+ External Rotation 4- Good- Internal Rotation 4+ Good+ Comments Specific testing of left Sartorius demonstrated increased pain and MMT of 3+/5 . PT-OP-Q Treatments Start: 07/20/18 11:21 Freq: Status: Active Protocol: Document 07/30/18 15:15 DCW (Rec: 07/30/18 15:57 DCW [id number]) Therapeutic Exercises Supine Exercises Bridging /c Add ball squeeze Supine Exercise Name Bridging Equipment Used Small ball Comments Adductor ball squeeze SLR /c ER Supine Exercise Name ER Straight Leg Raise Side bilateral Hamstring Stretch Supine Exercise Name Supine HS stretch Side bilateral Comments Passive Sidelying Exercises Hip Adduction Sidelying Exercise Name Hip Adduction Side bilateral Reverse Clam Shell Sidelying Exercise Name Reverse clam shell Side bilateral Manual Therapy Treatment Soft Tissue Mobilization Pes Anserine Body Location Cross-friction at bilateral pes anserine Mobilization Type Cross-Friction Body Position Hooklying Adductor Body Location bilateral adductors Mobilization Type Myofascial Release Sustained Pressure PT-OP-R Modalities Start: 07/20/18 11:21 Freq: Status: Active Protocol: Document 07/30/18 15:15 DCW (Rec: 07/30/18 16:13 DCW [id number]) Electric Stimulation Electric Stimulation Functional Electric Stimulation Duration (Minutes) 15 Intensity 18 Contraction Type Normal Cycle Continuous Patient Position Sitting PT-OP-T Assessment and Plan Start: 07/20/18 11:21 Freq: Status: Active Protocol: Document 07/30/18 15:15 DCW (Rec: 07/30/18 15:57 DCW [id number]) Physical Therapy Assessment Impairments Impairments Functional Activities Pain Soft Tissue Mobility Strength Tone Goals Three Impairment Tenderness to Palpation Mcfp Goal (LTG) Pt to report 1/4: Complaint of pain with palpation along her bilateral Pes Anserine. LTG Duration 09/19/18 Two Impairment Difficulty with stairs Creative Writing English Professor Goal (LTG) Pt to ascend and descend two flights of stairs with no increase in symptoms LTG Duration 09/19/18 One Impairment Pt does not have appropriate home exercise program Short Term Goal (STG) Pt to be independent and complaint with appropriate HEP STG Duration 08/19/18 Assessment Summary Assessment Pt complained of mild soreness and sharp pain throughout treatment today, but was able to tolerate treatment well. Physical Therapy Plan Frequency and Duration Frequency of Treatment 2x/Week Duration of Treatment 10 weeks Plan of Care Start Date 07/20/18 Plan of Care End Date 09/28/18 Therapeutic Interventions Therapeutic Interventions Aquatic Therapy Home Exercise Program Joint Mobilizations Manual Therapy Patient/Caregiver Education Self-Care/Home Management Soft Tissue Mobilization Taping Therapeutic Activities Therapeutic Exercises Modalities Cold Pack/Ice Massage Electric Stimulation Hot Packs Iontophoresis Ultrasound Other Therapeutic Interventions Iontophoresis /c Dexamethasone : 4 mg/mL Next Visit Focus/Plan Next Note Type Treatment Note Next Visit Plan STM, Flexibility, Strengthening, US, Taping, Ionto
--- NOTE | 2018-08-03 09:46 | PT.OTN ---
Current Diagnoses Pain in right knee (08/03/18) Pain in left knee (08/03/18) Physical Therapy Treatment Note PT-OP-A Visit Information Start: 07/20/18 11:21 Freq: Status: Active Protocol: Document 08/03/18 09:00 DCW (Rec: 08/03/18 09:46 DCW [id number]) Out-Patient Physical Therapy Visit Information Visit Information Visit Type Treatment Note Visit Start Time 09:00 Visit Stop Time 09:50 Total Visit Minutes 50 Visit Number 5 Number of REGULATORY AFFAIRS CONSULTANT Visits 0 Evaluation Information Evaluation Date 07/20/18 PT-OP-B Current Condition Start: 07/20/18 11:21 Freq: Status: Active Protocol: Document 07/20/18 10:30 DCW (Rec: 07/20/18 12:55 DCW [id number]) Current Condition History of Current Condition Onset Date seven months Current Complaints medial pain bilaterally, inferior to patella in pes anserine area History of Current Condition Pt is a 73 year old female presenting with a seven month history of lower extremity pain, which began as left foot pain. Pt's initial ankle MRI revealed multiple partial tears, including partial- thickness tearing of the plantar fascia with moderate- sized plantar calcaneal spur, moderate segment longitudinal split tear of the peroneus brevis tendon, and moderate to high-grade partial-thickness tear of the posterior talofibular ligament. All of this seemingly occurred without any traumatic origin. Pt began PT and wearing an AFO in April, and pt's ankle/ foot pain began to lessen, however she began to have increased pain in her medial left knee, inferior to her patella. While she was participating in PT, she was able to perform limited hiking , however pain below left knee continued, and began increasing at the same location on the right side, particularly after performing leg press exercises. Pt now feels pain in the area of her pes anserine bilaterally, with additional pain in the calf and cisneros. Pt reports pain worst when ascending and descending stairs, and when laying in bed with her legs externally rotated. Prior Treatments and Tests MRI (Per Tai Leavitt M.D. on 03/01/2018): 1. Partial-thickness tearing of the plantar fascia with an associated moderate-sized plantar calcaneal spur. Please correlate clinically for plantar fasciitis. 2. Mild to moderate distal Achilles tendinopathy. 3. Moderate segment longitudinal split tear of the peroneus brevis tendon with corresponding tendinopathy. There is mild peroneus longus tendinopathy. 4. Moderate to high-grade partial-thickness tear of the posterior talofibular ligament . Additional lateral ankle ligament scarring is present. 5. Mild distal tibialis posterior tendinopathy. 6. Mild degenerative changes of the midfoot and hindfoot joints. 7. Probable scarring of the spring ligament without a full -thickness tear. Treatment Goals Patient/Caregiver Goals Pt's goal is to not have pain and return to hiking and stairs without hurting. Pt also notes desire to simply figure out what is happening to cause this pain. Prior Functional Status Baseline Function- ADL's Independent Baseline Function- Mobility Independent Current Functional Impairments (Reported) Functional Limitations- ADL's Difficulty/pain ascending/ descending stairs, laying in bed with ER of lower extremities. Personal Factors Other Personal Factors That May Effect HTN, Osteoarthritis, CAD, Hx Therapy/Recovery Breast Ca and Skin Ca, Hx NSTEMI (2009), Partial ankle ligament and tendon tears PT-OP-C Subjective Start: 07/20/18 11:21 Freq: Status: Active Protocol: Document 08/03/18 09:00 DCW (Rec: 08/03/18 09:46 DCW [id number]) OP-PT Subjective Patient Comments Patient Comments Pt reports that following her last visit, she hasn't really had any pain in her knee since. PT-OP-F Manual Assessment Start: 07/20/18 11:21 Freq: Status: Active Protocol: Document 07/27/18 09:45 DCW (Rec: 07/27/18 17:07 DCW [id number]) Manual Assessments Soft Tissue Assessment Soft Tissue Mobility Assessment Pt does have noticeable subdermal nodules throughout her lower extremities, especially along lateral thigh , anterior cisneros, and medial knee. PT-OP-L Special Tests Start: 07/20/18 11:21 Freq: Status: Active Protocol: Document 07/20/18 10:30 DCW (Rec: 07/20/18 12:55 DCW [id number]) Special Tests Knee Special Tests Varus- 0 Degrees Test Results Negative Valgus- 0 Degrees Test Results Negative Posterior Draw Test Results Negative Ag Test Test Results Negative Anterior Draw Test Results Negative PT-OP-M Strength Start: 07/20/18 11:21 Freq: Status: Active Protocol: Document 07/20/18 10:30 DCW (Rec: 07/20/18 12:55 DCW [id number]) Hip Strength Hip Manual Muscle Testing Right Flexion (L2) 4+ Good+ Extension (S1) 5 Normal Abduction 5 Normal Adduction 4+ Good+ External Rotation 4+ Good+ Internal Rotation 4+ Good+ Comments Specific testing of right Sartorius demonstrated increased pain and MMT of 4/5. Left Flexion (L2) 4 Good Extension (S1) 5 Normal Abduction 5 Normal Adduction 4+ Good+ External Rotation 4- Good- Internal Rotation 4+ Good+ Comments Specific testing of left Sartorius demonstrated increased pain and MMT of 3+/5 . PT-OP-Q Treatments Start: 07/20/18 11:21 Freq: Status: Active Protocol: Document 08/03/18 09:00 DCW (Rec: 08/03/18 09:46 DCW [id number]) Gym Equipment Therapeutic Ball Reverse Leg Press Exercise Details Reverse leg press Ball Size/Color Blue - 45 cm Lv 2 T-band Therapeutic Exercises Supine Exercises Bridging /c Add ball squeeze Supine Exercise Name Bridging Equipment Used Small ball Comments Adductor ball squeeze SLR /c ER Supine Exercise Name ER Straight Leg Raise Side bilateral Single Lrol-uk-[place] Supine Exercise Name KtC Side bilateral Comments Passive Hamstring Stretch Supine Exercise Name Supine HS stretch Side bilateral Comments Passive Standing Exercises Dorsiflexion Stretch Standing Exercise Name DF stretch Side bilateral Equipment Used LÓPEZ Manual Therapy Treatment Soft Tissue Mobilization Pes Anserine Body Location Cross-friction at bilateral pes anserine Mobilization Type Cross-Friction Body Position Hooklying Adductor Body Location bilateral adductors Mobilization Type Myofascial Release Sustained Pressure PT-OP-R Modalities Start: 07/20/18 11:21 Freq: Status: Active Protocol: Document 08/03/18 09:00 DCW (Rec: 08/03/18 09:46 DCW [id number]) Electric Stimulation Electric Stimulation Functional Electric Stimulation Body Location Bilateral knee Duration (Minutes) 15 Intensity 15 R/11 L Contraction Type Normal Cycle Continuous Patient Position Sitting Combined With Heat/Cold Hot Pack Iontophoresis Treatment Left Medial Knee Treatment Medication Dexamethasone (-) Medication Amount (mL) (ml) 1.0 Medication Dosage 4 mg/mL Treatment Polarity Negative to Negative Active Electrode Placement Pes Anserine PT-OP-T Assessment and Plan Start: 07/20/18 11:21 Freq: Status: Active Protocol: Document 08/03/18 09:00 DCW (Rec: 08/03/18 09:46 DCW [id number]) Physical Therapy Assessment Impairments Impairments Functional Activities Pain Soft Tissue Mobility Strength Tone Goals Three Impairment Tenderness to Palpation Mower Mechanic Goal (LTG) Pt to report 09/21: Complaint of pain with palpation along her bilateral Pes Anserine. LTG Duration 09/19/18 Two Impairment Difficulty with stairs Mower Mechanic Goal (LTG) Pt to ascend and descend two flights of stairs with no increase in symptoms LTG Duration 09/19/18 One Impairment Pt does not have appropriate home exercise program Short Term Goal (STG) Pt to be independent and complaint with appropriate HEP STG Duration 08/19/18 Assessment Summary Assessment Pt had much fewer complaints of pain and difficulty today, appears to be showing improvement with bilateral pain. Physical Therapy Plan Frequency and Duration Frequency of Treatment 2x/Week Duration of Treatment 10 weeks Plan of Care Start Date 07/20/18 Plan of Care End Date 09/28/18 Therapeutic Interventions Therapeutic Interventions Aquatic Therapy Home Exercise Program Joint Mobilizations Manual Therapy Patient/Caregiver Education Self-Care/Home Management Soft Tissue Mobilization Taping Therapeutic Activities Therapeutic Exercises Modalities Cold Pack/Ice Massage Electric Stimulation Hot Packs Iontophoresis Ultrasound Other Therapeutic Interventions Iontophoresis /c Dexamethasone : 4 mg/mL Next Visit Focus/Plan Next Note Type Treatment Note Next Visit Plan STM, Flexibility, Strengthening, US, Taping, Ionto
--- NOTE | 2018-08-07 10:58 | PT.OTN ---
Current Diagnoses Pain in right knee (08/07/18) Pain in left knee (08/07/18) Physical Therapy Treatment Note PT-OP-A Visit Information Start: 07/20/18 11:21 Freq: Status: Active Protocol: Document 08/07/18 09:53 LRN (Rec: 08/07/18 10:53 LRN [id number]) Out-Patient Physical Therapy Visit Information Visit Information Visit Type Treatment Note Visit Start Time 09:53 Visit Stop Time 11:00 Total Visit Minutes 67 Visit Number 6 Number of BUSINESS DEVELOPMENT PROFESSIONAL Visits 0 Evaluation Information Evaluation Date 07/20/18 PT-OP-B Current Condition Start: 07/20/18 11:21 Freq: Status: Active Protocol: Document 07/20/18 10:30 DCW (Rec: 07/20/18 12:55 DCW [id number]) Current Condition History of Current Condition Onset Date seven months Current Complaints medial pain bilaterally, inferior to patella in pes anserine area History of Current Condition Pt is a 73 year old female presenting with a seven month history of lower extremity pain, which began as left foot pain. Pt's initial ankle MRI revealed multiple partial tears, including partial- thickness tearing of the plantar fascia with moderate- sized plantar calcaneal spur, moderate segment longitudinal split tear of the peroneus brevis tendon, and moderate to high-grade partial-thickness tear of the posterior talofibular ligament. All of this seemingly occurred without any traumatic origin. Pt began PT and wearing an AFO in April, and pt's ankle/ foot pain began to lessen, however she began to have increased pain in her medial left knee, inferior to her patella. While she was participating in PT, she was able to perform limited hiking , however pain below left knee continued, and began increasing at the same location on the right side, particularly after performing leg press exercises. Pt now feels pain in the area of her pes anserine bilaterally, with additional pain in the calf and cisneros. Pt reports pain worst when ascending and descending stairs, and when laying in bed with her legs externally rotated. Prior Treatments and Tests MRI (Per Tai Leavitt M.D. on 03/01/2018): 1. Partial-thickness tearing of the plantar fascia with an associated moderate-sized plantar calcaneal spur. Please correlate clinically for plantar fasciitis. 2. Mild to moderate distal Achilles tendinopathy. 3. Moderate segment longitudinal split tear of the peroneus brevis tendon with corresponding tendinopathy. There is mild peroneus longus tendinopathy. 4. Moderate to high-grade partial-thickness tear of the posterior talofibular ligament . Additional lateral ankle ligament scarring is present. 5. Mild distal tibialis posterior tendinopathy. 6. Mild degenerative changes of the midfoot and hindfoot joints. 7. Probable scarring of the spring ligament without a full -thickness tear. Treatment Goals Patient/Caregiver Goals Pt's goal is to not have pain and return to hiking and stairs without hurting. Pt also notes desire to simply figure out what is happening to cause this pain. Prior Functional Status Baseline Function- ADL's Independent Baseline Function- Mobility Independent Current Functional Impairments (Reported) Functional Limitations- ADL's Difficulty/pain ascending/ descending stairs, laying in bed with ER of lower extremities. Personal Factors Other Personal Factors That May Effect HTN, Osteoarthritis, CAD, Hx Therapy/Recovery Breast Ca and Skin Ca, Hx NSTEMI (2009), Partial ankle ligament and tendon tears PT-OP-C Subjective Start: 07/20/18 11:21 Freq: Status: Active Protocol: Document 08/07/18 09:53 LRN (Rec: 08/07/18 10:53 LRN [id number]) OP-PT Subjective Patient Comments Patient Comments Not sure what is helping. Pain is intermittent, can't tell what is setting it off. PT-OP-F Manual Assessment Start: 07/20/18 11:21 Freq: Status: Active Protocol: Document 07/27/18 09:45 DCW (Rec: 07/27/18 17:07 DCW [id number]) Manual Assessments Soft Tissue Assessment Soft Tissue Mobility Assessment Pt does have noticeable subdermal nodules throughout her lower extremities, especially along lateral thigh , anterior cisneros, and medial knee. PT-OP-L Special Tests Start: 07/20/18 11:21 Freq: Status: Active Protocol: Document 07/20/18 10:30 DCW (Rec: 07/20/18 12:55 DCW [id number]) Special Tests Knee Special Tests Varus- 0 Degrees Test Results Negative Valgus- 0 Degrees Test Results Negative Posterior Draw Test Results Negative Ag Test Test Results Negative Anterior Draw Test Results Negative PT-OP-M Strength Start: 07/20/18 11:21 Freq: Status: Active Protocol: Document 07/20/18 10:30 DCW (Rec: 07/20/18 12:55 DCW [id number]) Hip Strength Hip Manual Muscle Testing Right Flexion (L2) 4+ Good+ Extension (S1) 5 Normal Abduction 5 Normal Adduction 4+ Good+ External Rotation 4+ Good+ Internal Rotation 4+ Good+ Comments Specific testing of right Sartorius demonstrated increased pain and MMT of 4/5. Left Flexion (L2) 4 Good Extension (S1) 5 Normal Abduction 5 Normal Adduction 4+ Good+ External Rotation 4- Good- Internal Rotation 4+ Good+ Comments Specific testing of left Sartorius demonstrated increased pain and MMT of 3+/5 . PT-OP-Q Treatments Start: 07/20/18 11:21 Freq: Status: Active Protocol: Document 08/07/18 09:53 LRN (Rec: 08/07/18 10:50 LRN [id number]) Therapeutic Exercises Supine Exercises Bridging /c Add ball squeeze Supine Exercise Name Bridging Equipment Used Small ball Comments Adductor ball squeeze Sidelying Exercises Hip Adduction Sidelying Exercise Name Hip Adduction Side bilateral Reverse Clam Shell Sidelying Exercise Name Reverse clam shell Side bilateral Manual Therapy Treatment Soft Tissue Mobilization Pes Anserine Body Location Cross-friction at bilateral pes anserine Mobilization Type Cross-Friction Body Position Hooklying Adductor Body Location bilateral adductors Mobilization Type Myofascial Release Sustained Pressure PT-OP-R Modalities Start: 07/20/18 11:21 Freq: Status: Active Protocol: Document 08/07/18 09:53 LRN (Rec: 08/07/18 10:50 LRN [id number]) Electric Stimulation Electric Stimulation Functional Electric Stimulation Body Location Bilateral knee Duration (Minutes) 15 Intensity 19 R/15 L Contraction Type Normal Cycle Continuous Patient Position Sitting Combined With Heat/Cold Hot Pack Iontophoresis Treatment Left Medial Knee Treatment Medication Dexamethasone (-) Medication Amount (mL) (ml) 1.0 Medication Dosage 4 mg/mL Treatment Polarity Negative to Negative Active Electrode Placement Pes Anserine PT-OP-T Assessment and Plan Start: 07/20/18 11:21 Freq: Status: Active Protocol: Document 08/07/18 09:53 LRN (Rec: 08/07/18 10:50 LRN [id number]) Physical Therapy Assessment Assessment Summary Assessment Pt pain is intermittent. Pain is sharp in nature intermittently and with palpation. Physical Therapy Plan Frequency and Duration Frequency of Treatment 2x/Week Duration of Treatment 10 weeks Plan of Care Start Date 07/20/18 Plan of Care End Date 09/28/18 Next Visit Focus/Plan Next Note Type Treatment Note Next Visit Plan STM, Flexibility, Strengthening, E-stom, Ionto. ? US, Taping.
--- NOTE | 2018-08-13 14:40 | PT.OTN ---
Current Diagnoses Pain in right knee (08/13/18) Pain in left knee (08/13/18) Physical Therapy Treatment Note PT-OP-A Visit Information Start: 07/20/18 11:21 Freq: Status: Active Protocol: Document 08/13/18 11:22 LRN (Rec: 08/13/18 11:55 LRN [id number]) Out-Patient Physical Therapy Visit Information Visit Information Visit Type Treatment Note Visit Start Time 11:22 Visit Stop Time 12:14 Total Visit Minutes 52 Visit Number 7 Number of CUBING MACHINE TENDER Visits 0 Evaluation Information Evaluation Date 07/20/18 PT-OP-B Current Condition Start: 07/20/18 11:21 Freq: Status: Active Protocol: Document 07/20/18 10:30 DCW (Rec: 07/20/18 12:55 DCW [id number]) Current Condition History of Current Condition Onset Date seven months Current Complaints medial pain bilaterally, inferior to patella in pes anserine area History of Current Condition Pt is a 73 year old female presenting with a seven month history of lower extremity pain, which began as left foot pain. Pt's initial ankle MRI revealed multiple partial tears, including partial- thickness tearing of the plantar fascia with moderate- sized plantar calcaneal spur, moderate segment longitudinal split tear of the peroneus brevis tendon, and moderate to high-grade partial-thickness tear of the posterior talofibular ligament. All of this seemingly occurred without any traumatic origin. Pt began PT and wearing an AFO in April, and pt's ankle/ foot pain began to lessen, however she began to have increased pain in her medial left knee, inferior to her patella. While she was participating in PT, she was able to perform limited hiking , however pain below left knee continued, and began increasing at the same location on the right side, particularly after performing leg press exercises. Pt now feels pain in the area of her pes anserine bilaterally, with additional pain in the calf and cisneros. Pt reports pain worst when ascending and descending stairs, and when laying in bed with her legs externally rotated. Prior Treatments and Tests MRI (Per Tai Leavitt M.D. on 03/01/2018): 1. Partial-thickness tearing of the plantar fascia with an associated moderate-sized plantar calcaneal spur. Please correlate clinically for plantar fasciitis. 2. Mild to moderate distal Achilles tendinopathy. 3. Moderate segment longitudinal split tear of the peroneus brevis tendon with corresponding tendinopathy. There is mild peroneus longus tendinopathy. 4. Moderate to high-grade partial-thickness tear of the posterior talofibular ligament . Additional lateral ankle ligament scarring is present. 5. Mild distal tibialis posterior tendinopathy. 6. Mild degenerative changes of the midfoot and hindfoot joints. 7. Probable scarring of the spring ligament without a full -thickness tear. Treatment Goals Patient/Caregiver Goals Pt's goal is to not have pain and return to hiking and stairs without hurting. Pt also notes desire to simply figure out what is happening to cause this pain. Prior Functional Status Baseline Function- ADL's Independent Baseline Function- Mobility Independent Current Functional Impairments (Reported) Functional Limitations- ADL's Difficulty/pain ascending/ descending stairs, laying in bed with ER of lower extremities. Personal Factors Other Personal Factors That May Effect HTN, Osteoarthritis, CAD, Hx Therapy/Recovery Breast Ca and Skin Ca, Hx NSTEMI (2009), Partial ankle ligament and tendon tears PT-OP-C Subjective Start: 07/20/18 11:21 Freq: Status: Active Protocol: Document 08/13/18 11:22 LRN (Rec: 08/13/18 11:55 LRN [id number]) OP-PT Subjective Patient Comments Patient Comments Not any change. Pain is intermittent. States the ionto patch came off after 1-2 hours. PT-OP-F Manual Assessment Start: 07/20/18 11:21 Freq: Status: Active Protocol: Document 07/27/18 09:45 DCW (Rec: 07/27/18 17:07 DCW [id number]) Manual Assessments Soft Tissue Assessment Soft Tissue Mobility Assessment Pt does have noticeable subdermal nodules throughout her lower extremities, especially along lateral thigh , anterior cisneros, and medial knee. PT-OP-L Special Tests Start: 07/20/18 11:21 Freq: Status: Active Protocol: Document 07/20/18 10:30 DCW (Rec: 07/20/18 12:55 DCW [id number]) Special Tests Knee Special Tests Varus- 0 Degrees Test Results Negative Valgus- 0 Degrees Test Results Negative Posterior Draw Test Results Negative Ag Test Test Results Negative Anterior Draw Test Results Negative PT-OP-M Strength Start: 07/20/18 11:21 Freq: Status: Active Protocol: Document 07/20/18 10:30 DCW (Rec: 07/20/18 12:55 DCW [id number]) Hip Strength Hip Manual Muscle Testing Right Flexion (L2) 4+ Good+ Extension (S1) 5 Normal Abduction 5 Normal Adduction 4+ Good+ External Rotation 4+ Good+ Internal Rotation 4+ Good+ Comments Specific testing of right Sartorius demonstrated increased pain and MMT of 4/5. Left Flexion (L2) 4 Good Extension (S1) 5 Normal Abduction 5 Normal Adduction 4+ Good+ External Rotation 4- Good- Internal Rotation 4+ Good+ Comments Specific testing of left Sartorius demonstrated increased pain and MMT of 3+/5 . PT-OP-Q Treatments Start: 07/20/18 11:21 Freq: Status: Active Protocol: Document 08/13/18 11:22 LRN (Rec: 08/13/18 11:55 LRN [id number]) Therapeutic Exercises Supine Exercises Bridging /c Add ball squeeze Supine Exercise Name Bridging Equipment Used Small ball Comments Adductor ball squeeze SLR /c ER Supine Exercise Name ER Straight Leg Raise Side bilateral Sidelying Exercises Hip Adduction Sidelying Exercise Name Hip Adduction Side bilateral Reverse Clam Shell Sidelying Exercise Name Reverse clam shell Side bilateral Sitting Exercises Knee extension Sitting Exercise Name Knee ext Side bilateral Resistance Lev 2 Equipment Used T-Band Comments MWM for L LE for popliteus strengthening Resisted Internal Rotation Sitting Exercise Name T-band resisted IR Side bilateral Resistance Lv 1 Equipment Used T-band Self-Care/Home Management Treatment Education Patient Education Posture Other Education Eduation for sitting posture at her computer. Discussed general anatomy and effect with sitting posture. Problem solved ways to adjust her sitting posture of the back and LE's to prevent extra stress at the knees and to prevent hip ER during sitting. PT-OP-R Modalities Start: 07/20/18 11:21 Freq: Status: Active Protocol: Document 08/13/18 11:22 LRN (Rec: 08/13/18 12:39 LRN [id number]) Iontophoresis Treatment Right Medial Knee Treatment Medication Dexamethasone (-) Medication Amount (mL) (ml) 1.0 Medication Dosage 4 mg/mL Treatment Polarity Negative to Negative Active Electrode Placement Pes Anserine Left Medial Knee Treatment Medication Dexamethasone (-) Medication Amount (mL) (ml) 1.0 Medication Dosage 4 mg/mL Treatment Polarity Negative to Negative Active Electrode Placement Pes Zacarias PT-OP-T Assessment and Plan Start: 07/20/18 11:21 Freq: Status: Active Protocol: Document 08/13/18 11:22 LRN (Rec: 08/13/18 12:39 LRN [id number]) Physical Therapy Assessment Assessment Summary Assessment No significant change. Pain after sitting at computer at home with her foot on a box ( no support under lower leg) and R leg that rolls out over time; therefore knee pain may be positional in nature. L lower leg tends to ER during knee extension; therefore knee pain may be positional and L popliteus related weakness. Physical Therapy Plan Frequency and Duration Frequency of Treatment 2x/Week Duration of Treatment 10 weeks Plan of Care Start Date 07/20/18 Plan of Care End Date 09/28/18 Next Visit Focus/Plan Next Note Type Treatment Note Next Visit Plan Assess response to treatment of LE ex & ionto (no STM). Check to see if pt changing the way she sits and supports her legs positively affects onset of pain. Continue with Open chain knee exercise (as tolerated), flexibility, core stab.
--- NOTE | 2018-08-15 14:27 | PT.OTN ---
Current Diagnoses Pain in right knee (08/15/18) Pain in left knee (08/15/18) Physical Therapy Treatment Note PT-OP-A Visit Information Start: 07/20/18 11:21 Freq: Status: Active Protocol: Document 08/15/18 14:27 RCC (Rec: 08/15/18 14:40 RCC [email or web address]) Out-Patient Physical Therapy Visit Information Visit Information Visit Type Treatment Note Visit Start Time 13:45 Visit Stop Time 14:27 Total Visit Minutes 43 Visit Number 8 Number of MANAGER FINE Visits 0 Evaluation Information Evaluation Date 07/20/18 PT-OP-B Current Condition Start: 07/20/18 11:21 Freq: Status: Active Protocol: Document 07/20/18 10:30 DCW (Rec: 07/20/18 12:55 DCW [id number]) Current Condition History of Current Condition Onset Date seven months Current Complaints medial pain bilaterally, inferior to patella in pes anserine area History of Current Condition Pt is a 73 year old female presenting with a seven month history of lower extremity pain, which began as left foot pain. Pt's initial ankle MRI revealed multiple partial tears, including partial- thickness tearing of the plantar fascia with moderate- sized plantar calcaneal spur, moderate segment longitudinal split tear of the peroneus brevis tendon, and moderate to high-grade partial-thickness tear of the posterior talofibular ligament. All of this seemingly occurred without any traumatic origin. Pt began PT and wearing an AFO in April, and pt's ankle/ foot pain began to lessen, however she began to have increased pain in her medial left knee, inferior to her patella. While she was participating in PT, she was able to perform limited hiking , however pain below left knee continued, and began increasing at the same location on the right side, particularly after performing leg press exercises. Pt now feels pain in the area of her pes anserine bilaterally, with additional pain in the calf and cisneros. Pt reports pain worst when ascending and descending stairs, and when laying in bed with her legs externally rotated. Prior Treatments and Tests MRI (Per Tai Leavitt M.D. on 03/01/2018): 1. Partial-thickness tearing of the plantar fascia with an associated moderate-sized plantar calcaneal spur. Please correlate clinically for plantar fasciitis. 2. Mild to moderate distal Achilles tendinopathy. 3. Moderate segment longitudinal split tear of the peroneus brevis tendon with corresponding tendinopathy. There is mild peroneus longus tendinopathy. 4. Moderate to high-grade partial-thickness tear of the posterior talofibular ligament . Additional lateral ankle ligament scarring is present. 5. Mild distal tibialis posterior tendinopathy. 6. Mild degenerative changes of the midfoot and hindfoot joints. 7. Probable scarring of the spring ligament without a full -thickness tear. Treatment Goals Patient/Caregiver Goals Pt's goal is to not have pain and return to hiking and stairs without hurting. Pt also notes desire to simply figure out what is happening to cause this pain. Prior Functional Status Baseline Function- ADL's Independent Baseline Function- Mobility Independent Current Functional Impairments (Reported) Functional Limitations- ADL's Difficulty/pain ascending/ descending stairs, laying in bed with ER of lower extremities. Personal Factors Other Personal Factors That May Effect HTN, Osteoarthritis, CAD, Hx Therapy/Recovery Breast Ca and Skin Ca, Hx NSTEMI (2009), Partial ankle ligament and tendon tears PT-OP-C Subjective Start: 07/20/18 11:21 Freq: Status: Active Protocol: Document 08/15/18 14:27 RCC (Rec: 08/15/18 14:40 RCC [email or web address]) OP-PT Subjective Patient Comments Patient Comments Pt felt pretty good after last session, but she has done stairs many times today and is starting to feel achy. PT-OP-F Manual Assessment Start: 07/20/18 11:21 Freq: Status: Active Protocol: Document 07/27/18 09:45 DCW (Rec: 07/27/18 17:07 DCW [id number]) Manual Assessments Soft Tissue Assessment Soft Tissue Mobility Assessment Pt does have noticeable subdermal nodules throughout her lower extremities, especially along lateral thigh , anterior cisneros, and medial knee. PT-OP-L Special Tests Start: 07/20/18 11:21 Freq: Status: Active Protocol: Document 07/20/18 10:30 DCW (Rec: 07/20/18 12:55 DCW [id number]) Special Tests Knee Special Tests Varus- 0 Degrees Test Results Negative Valgus- 0 Degrees Test Results Negative Posterior Draw Test Results Negative Ag Test Test Results Negative Anterior Draw Test Results Negative PT-OP-M Strength Start: 07/20/18 11:21 Freq: Status: Active Protocol: Document 07/20/18 10:30 DCW (Rec: 07/20/18 12:55 DCW [id number]) Hip Strength Hip Manual Muscle Testing Right Flexion (L2) 4+ Good+ Extension (S1) 5 Normal Abduction 5 Normal Adduction 4+ Good+ External Rotation 4+ Good+ Internal Rotation 4+ Good+ Comments Specific testing of right Sartorius demonstrated increased pain and MMT of 4/5. Left Flexion (L2) 4 Good Extension (S1) 5 Normal Abduction 5 Normal Adduction 4+ Good+ External Rotation 4- Good- Internal Rotation 4+ Good+ Comments Specific testing of left Sartorius demonstrated increased pain and MMT of 3+/5 . PT-OP-Q Treatments Start: 07/20/18 11:21 Freq: Status: Active Protocol: Document 08/15/18 14:27 RCC (Rec: 08/15/18 14:40 RCC [email or web address]) Gym Equipment Therapeutic Ball Reverse Leg Press Exercise Details Reverse leg press Ball Size/Color Blue - 45 cm Lv 2 T-band Therapeutic Exercises Supine Exercises Adduction ball squeeze Supine Exercise Name hip adduction ball squeeze Side bilateral Reps/Minutes x20 with 5 sec hold Bridging /c Add ball squeeze Supine Exercise Name Bridging Equipment Used Small ball Comments Adductor ball squeeze SLR /c ER Supine Exercise Name ER Straight Leg Raise Side bilateral Standing Exercises alternating PF/DF Standing Exercise Name alternating DF/PF on LÓPEZ Side bilateral Comments with hand support PPT Standing Exercise Name posterior pelvic tilt Side bilateral Resisted walking Standing Exercise Name lateral and forward Side bilateral Resistance yellow Reps/Minutes 2 laps each @ standing bar Comments VC for neutral feet/alignment Dorsiflexion Stretch Standing Exercise Name DF stretch Side bilateral Equipment Used LÓPEZ PT-OP-R Modalities Start: 07/20/18 11:21 Freq: Status: Active Protocol: Document 08/15/18 14:27 RCC (Rec: 08/15/18 14:40 RCC [email or web address]) Iontophoresis Treatment Right Medial Knee Treatment Medication Dexamethasone (-) Medication Amount (mL) (ml) 1.0 Medication Dosage 4 mg/mL Treatment Polarity Negative to Negative Active Electrode Placement Pes Anserine Left Medial Knee Treatment Medication Dexamethasone (-) Medication Amount (mL) (ml) 1.0 Medication Dosage 4 mg/mL Treatment Polarity Negative to Negative Active Electrode Placement Pes Anserine PT-OP-T Assessment and Plan Start: 07/20/18 11:21 Freq: Status: Active Protocol: Document 08/15/18 14:27 RCC (Rec: 08/15/18 14:40 RCC [email or web address]) Physical Therapy Assessment Assessment Summary Assessment Pt with fatigue of the BLEs today after session. No c/o increased pain with some closed chain activities today. No soft tissue performed this session, however, if pt does not continue to get improved relief after sessions recommend to re-start STR as tolerated for pes anserine/ adductors. Physical Therapy Plan Frequency and Duration Frequency of Treatment 2x/Week Duration of Treatment 10 weeks Plan of Care Start Date 07/20/18 Plan of Care End Date 09/28/18 Next Visit Focus/Plan Next Note Type Treatment Note Next Visit Plan cont. to advance hip and knee strengthening, body mechanics and LE positioning.
--- NOTE | 2018-08-22 14:28 | PT.OTN ---
Current Diagnoses Pain in right knee (08/22/18) Pain in left knee (08/22/18) Physical Therapy Treatment Note PT-OP-A Visit Information Start: 07/20/18 11:21 Freq: Status: Active Protocol: Document 08/22/18 13:45 DCW (Rec: 08/22/18 14:28 DCW [id number]) Out-Patient Physical Therapy Visit Information Visit Information Visit Type Treatment Note Visit Start Time 13:45 Visit Stop Time 14:40 Total Visit Minutes 55 Visit Number 9 Number of ANTHROPOMETRIST Visits 0 Evaluation Information Evaluation Date 07/20/18 PT-OP-B Current Condition Start: 07/20/18 11:21 Freq: Status: Active Protocol: Document 07/20/18 10:30 DCW (Rec: 07/20/18 12:55 DCW [id number]) Current Condition History of Current Condition Onset Date seven months Current Complaints medial pain bilaterally, inferior to patella in pes anserine area History of Current Condition Pt is a 73 year old female presenting with a seven month history of lower extremity pain, which began as left foot pain. Pt's initial ankle MRI revealed multiple partial tears, including partial- thickness tearing of the plantar fascia with moderate- sized plantar calcaneal spur, moderate segment longitudinal split tear of the peroneus brevis tendon, and moderate to high-grade partial-thickness tear of the posterior talofibular ligament. All of this seemingly occurred without any traumatic origin. Pt began PT and wearing an AFO in April, and pt's ankle/ foot pain began to lessen, however she began to have increased pain in her medial left knee, inferior to her patella. While she was participating in PT, she was able to perform limited hiking , however pain below left knee continued, and began increasing at the same location on the right side, particularly after performing leg press exercises. Pt now feels pain in the area of her pes anserine bilaterally, with additional pain in the calf and cisneros. Pt reports pain worst when ascending and descending stairs, and when laying in bed with her legs externally rotated. Prior Treatments and Tests MRI (Per Tai Leavitt M.D. on 03/01/2018): 1. Partial-thickness tearing of the plantar fascia with an associated moderate-sized plantar calcaneal spur. Please correlate clinically for plantar fasciitis. 2. Mild to moderate distal Achilles tendinopathy. 3. Moderate segment longitudinal split tear of the peroneus brevis tendon with corresponding tendinopathy. There is mild peroneus longus tendinopathy. 4. Moderate to high-grade partial-thickness tear of the posterior talofibular ligament . Additional lateral ankle ligament scarring is present. 5. Mild distal tibialis posterior tendinopathy. 6. Mild degenerative changes of the midfoot and hindfoot joints. 7. Probable scarring of the spring ligament without a full -thickness tear. Treatment Goals Patient/Caregiver Goals Pt's goal is to not have pain and return to hiking and stairs without hurting. Pt also notes desire to simply figure out what is happening to cause this pain. Prior Functional Status Baseline Function- ADL's Independent Baseline Function- Mobility Independent Current Functional Impairments (Reported) Functional Limitations- ADL's Difficulty/pain ascending/ descending stairs, laying in bed with ER of lower extremities. Personal Factors Other Personal Factors That May Effect HTN, Osteoarthritis, CAD, Hx Therapy/Recovery Breast Ca and Skin Ca, Hx NSTEMI (2009), Partial ankle ligament and tendon tears PT-OP-C Subjective Start: 07/20/18 11:21 Freq: Status: Active Protocol: Document 08/22/18 13:45 DCW (Rec: 08/22/18 14:28 DCW [id number]) OP-PT Subjective Patient Comments Patient Comments I haven't had any acute episodes, but I also don't really feel like it is any better. Does admit that it will bother her when descending stairs PT-OP-F Manual Assessment Start: 07/20/18 11:21 Freq: Status: Active Protocol: Document 07/27/18 09:45 DCW (Rec: 07/27/18 17:07 DCW [id number]) Manual Assessments Soft Tissue Assessment Soft Tissue Mobility Assessment Pt does have noticeable subdermal nodules throughout her lower extremities, especially along lateral thigh , anterior cisneros, and medial knee. PT-OP-L Special Tests Start: 07/20/18 11:21 Freq: Status: Active Protocol: Document 07/20/18 10:30 DCW (Rec: 07/20/18 12:55 DCW [id number]) Special Tests Knee Special Tests Varus- 0 Degrees Test Results Negative Valgus- 0 Degrees Test Results Negative Posterior Draw Test Results Negative Ag Test Test Results Negative Anterior Draw Test Results Negative PT-OP-M Strength Start: 07/20/18 11:21 Freq: Status: Active Protocol: Document 07/20/18 10:30 DCW (Rec: 07/20/18 12:55 DCW [id number]) Hip Strength Hip Manual Muscle Testing Right Flexion (L2) 4+ Good+ Extension (S1) 5 Normal Abduction 5 Normal Adduction 4+ Good+ External Rotation 4+ Good+ Internal Rotation 4+ Good+ Comments Specific testing of right Sartorius demonstrated increased pain and MMT of 4/5. Left Flexion (L2) 4 Good Extension (S1) 5 Normal Abduction 5 Normal Adduction 4+ Good+ External Rotation 4- Good- Internal Rotation 4+ Good+ Comments Specific testing of left Sartorius demonstrated increased pain and MMT of 3+/5 . PT-OP-Q Treatments Start: 07/20/18 11:21 Freq: Status: Active Protocol: Document 08/22/18 13:45 DCW (Rec: 08/22/18 14:28 DCW [id number]) Gym Equipment Therapeutic Ball Reverse Leg Press Exercise Details Reverse leg press Ball Size/Color Blue - 45 cm Lv 2 T-band Therapeutic Exercises Supine Exercises Bridging /c Add ball squeeze Supine Exercise Name Bridging Equipment Used Small ball Comments Adductor ball squeeze Single [id number] Supine Exercise Name KtC Side bilateral Comments Passive Hamstring Stretch Supine Exercise Name Supine HS stretch Side bilateral Comments Passive Manual Therapy Treatment Soft Tissue Mobilization Pes Anserine Body Location Cross-friction at bilateral pes anserine Mobilization Type Cross-Friction Body Position Hooklying Adductor Body Location bilateral adductors Mobilization Type Myofascial Release Sustained Pressure PT-OP-R Modalities Start: 07/20/18 11:21 Freq: Status: Active Protocol: Document 08/22/18 13:45 DCW (Rec: 08/22/18 14:28 DCW [id number]) Electric Stimulation Electric Stimulation Functional Electric Stimulation Body Location Bilateral knee Duration (Minutes) 15 Intensity 31 R/26 L Contraction Type Normal Cycle Continuous Patient Position Sitting Combined With Heat/Cold Cold Pack Iontophoresis Treatment Right Medial Knee Treatment Medication Dexamethasone (-) Medication Amount (mL) (ml) 1.0 Medication Dosage 4 mg/mL Treatment Polarity Negative to Negative Active Electrode Placement Pes Anserine Left Medial Knee Treatment Medication Dexamethasone (-) Medication Amount (mL) (ml) 1.0 Medication Dosage 4 mg/mL Treatment Polarity Negative to Negative Active Electrode Placement Pes Anserine PT-OP-T Assessment and Plan Start: 07/20/18 11:21 Freq: Status: Active Protocol: Document 08/22/18 13:45 DCW (Rec: 08/22/18 14:28 DCW [id number]) Physical Therapy Assessment Impairments Impairments Functional Activities Pain Soft Tissue Mobility Strength Tone Goals Three Impairment Tenderness to Palpation Slotter Operator Goal (LTG) Pt to report 1/4: Complaint of pain with palpation along her bilateral Pes Anserine. LTG Duration 09/19/18 Two Impairment Difficulty with stairs Shelter Goal (LTG) Pt to ascend and descend two flights of stairs with no increase in symptoms LTG Duration 09/19/18 One Impairment Pt does not have appropriate home exercise program Short Term Goal (STG) Pt to be independent and complaint with appropriate HEP STG Duration 08/19/18 Assessment Summary Assessment Pt continues to report minimal change, and additionally now presents with a soft tissue lump at the medial surface of her right heel/Achilles insertion. Pt will likely be referred back to her PCP following her final scheduled appointment on Monday. Physical Therapy Plan Frequency and Duration Frequency of Treatment 2x/Week Duration of Treatment 10 weeks Plan of Care Start Date 07/20/18 Plan of Care End Date 09/28/18 Therapeutic Interventions Therapeutic Interventions Aquatic Therapy Home Exercise Program Joint Mobilizations Manual Therapy Patient/Caregiver Education Self-Care/Home Management Soft Tissue Mobilization Taping Therapeutic Activities Therapeutic Exercises Modalities Cold Pack/Ice Massage Electric Stimulation Hot Packs Iontophoresis Ultrasound Other Therapeutic Interventions Iontophoresis /c Dexamethasone : 4 mg/mL Next Visit Focus/Plan Next Note Type Treatment Note Next Visit Plan STM, Flexibility, Strengthening, US, Taping, Ionto
--- NOTE | 2018-08-24 10:30 | PT.OTN ---
Current Diagnoses Pain in right knee (08/24/18) Pain in left knee (08/24/18) Physical Therapy Treatment Note PT-OP-A Visit Information Start: 07/20/18 11:21 Freq: Status: Active Protocol: Document 08/24/18 09:45 DCW (Rec: 08/24/18 10:30 DCW [id number]) Out-Patient Physical Therapy Visit Information Visit Information Visit Type Treatment Note Visit Start Time 09:45 Visit Stop Time 10:40 Total Visit Minutes 55 Visit Number 10 Number of GLOVE CUTTER Visits 0 Evaluation Information Evaluation Date 07/20/18 PT-OP-B Current Condition Start: 07/20/18 11:21 Freq: Status: Active Protocol: Document 07/20/18 10:30 DCW (Rec: 07/20/18 12:55 DCW [id number]) Current Condition History of Current Condition Onset Date seven months Current Complaints medial pain bilaterally, inferior to patella in pes anserine area History of Current Condition Pt is a 73 year old female presenting with a seven month history of lower extremity pain, which began as left foot pain. Pt's initial ankle MRI revealed multiple partial tears, including partial- thickness tearing of the plantar fascia with moderate- sized plantar calcaneal spur, moderate segment longitudinal split tear of the peroneus brevis tendon, and moderate to high-grade partial-thickness tear of the posterior talofibular ligament. All of this seemingly occurred without any traumatic origin. Pt began PT and wearing an AFO in April, and pt's ankle/ foot pain began to lessen, however she began to have increased pain in her medial left knee, inferior to her patella. While she was participating in PT, she was able to perform limited hiking , however pain below left knee continued, and began increasing at the same location on the right side, particularly after performing leg press exercises. Pt now feels pain in the area of her pes anserine bilaterally, with additional pain in the calf and cisneros. Pt reports pain worst when ascending and descending stairs, and when laying in bed with her legs externally rotated. Prior Treatments and Tests MRI (Per Tai Leavitt M.D. on 03/01/2018): 1. Partial-thickness tearing of the plantar fascia with an associated moderate-sized plantar calcaneal spur. Please correlate clinically for plantar fasciitis. 2. Mild to moderate distal Achilles tendinopathy. 3. Moderate segment longitudinal split tear of the peroneus brevis tendon with corresponding tendinopathy. There is mild peroneus longus tendinopathy. 4. Moderate to high-grade partial-thickness tear of the posterior talofibular ligament . Additional lateral ankle ligament scarring is present. 5. Mild distal tibialis posterior tendinopathy. 6. Mild degenerative changes of the midfoot and hindfoot joints. 7. Probable scarring of the spring ligament without a full -thickness tear. Treatment Goals Patient/Caregiver Goals Pt's goal is to not have pain and return to hiking and stairs without hurting. Pt also notes desire to simply figure out what is happening to cause this pain. Prior Functional Status Baseline Function- ADL's Independent Baseline Function- Mobility Independent Current Functional Impairments (Reported) Functional Limitations- ADL's Difficulty/pain ascending/ descending stairs, laying in bed with ER of lower extremities. Personal Factors Other Personal Factors That May Effect HTN, Osteoarthritis, CAD, Hx Therapy/Recovery Breast Ca and Skin Ca, Hx NSTEMI (2009), Partial ankle ligament and tendon tears PT-OP-C Subjective Start: 07/20/18 11:21 Freq: Status: Active Protocol: Document 08/24/18 09:45 DCW (Rec: 08/24/18 10:30 DCW [id number]) OP-PT Subjective Patient Comments Patient Comments Pt notes increased aching yesterday and today, with no real cause. Pt also reports she is now worried about her foot, because it is beginning to feel like it did when she had multiple ligament tears. PT-OP-F Manual Assessment Start: 07/20/18 11:21 Freq: Status: Active Protocol: Document 07/27/18 09:45 DCW (Rec: 07/27/18 17:07 DCW [id number]) Manual Assessments Soft Tissue Assessment Soft Tissue Mobility Assessment Pt does have noticeable subdermal nodules throughout her lower extremities, especially along lateral thigh , anterior cisneros, and medial knee. PT-OP-L Special Tests Start: 07/20/18 11:21 Freq: Status: Active Protocol: Document 07/20/18 10:30 DCW (Rec: 07/20/18 12:55 DCW [id number]) Special Tests Knee Special Tests Varus- 0 Degrees Test Results Negative Valgus- 0 Degrees Test Results Negative Posterior Draw Test Results Negative Ag Test Test Results Negative Anterior Draw Test Results Negative PT-OP-M Strength Start: 07/20/18 11:21 Freq: Status: Active Protocol: Document 07/20/18 10:30 DCW (Rec: 07/20/18 12:55 DCW [id number]) Hip Strength Hip Manual Muscle Testing Right Flexion (L2) 4+ Good+ Extension (S1) 5 Normal Abduction 5 Normal Adduction 4+ Good+ External Rotation 4+ Good+ Internal Rotation 4+ Good+ Comments Specific testing of right Sartorius demonstrated increased pain and MMT of 4/5. Left Flexion (L2) 4 Good Extension (S1) 5 Normal Abduction 5 Normal Adduction 4+ Good+ External Rotation 4- Good- Internal Rotation 4+ Good+ Comments Specific testing of left Sartorius demonstrated increased pain and MMT of 3+/5 . PT-OP-Q Treatments Start: 07/20/18 11:21 Freq: Status: Active Protocol: Document 08/24/18 09:45 DCW (Rec: 08/24/18 10:30 DCW [id number]) Therapeutic Exercises Supine Exercises Resisted Sartorious Activation Supine Exercise Name Resisted Sartorious Activation Bridging /c Add ball squeeze Supine Exercise Name Bridging Equipment Used Small ball Comments Adductor ball squeeze Single [id number] Supine Exercise Name KtC Side bilateral Comments Passive Hamstring Stretch Supine Exercise Name Supine HS stretch Side bilateral Comments Passive Manual Therapy Treatment Soft Tissue Mobilization Pes Anserine Body Location Cross-friction at bilateral pes anserine Mobilization Type Cross-Friction Body Position Hooklying Adductor Body Location bilateral adductors Mobilization Type Myofascial Release Sustained Pressure PT-OP-R Modalities Start: 07/20/18 11:21 Freq: Status: Active Protocol: Document 08/24/18 09:45 DCW (Rec: 08/24/18 10:30 DCW [id number]) Electric Stimulation Electric Stimulation Functional Electric Stimulation Body Location Bilateral knee Duration (Minutes) 15 Intensity 31 R/26 L Contraction Type Normal Cycle Continuous Patient Position Sitting Combined With Heat/Cold Cold Pack Iontophoresis Treatment Right Medial Knee Treatment Medication Dexamethasone (-) Medication Amount (mL) (ml) 1.0 Medication Dosage 4 mg/mL Treatment Polarity Negative to Negative Active Electrode Placement Pes Anserine Left Medial Knee Treatment Medication Dexamethasone (-) Medication Amount (mL) (ml) 1.0 Medication Dosage 4 mg/mL Treatment Polarity Negative to Negative Active Electrode Placement Pes Anserine PT-OP-T Assessment and Plan Start: 07/20/18 11:21 Freq: Status: Active Protocol: Document 08/24/18 09:45 DCW (Rec: 08/24/18 10:30 DCW [id number]) Physical Therapy Assessment Impairments Impairments Functional Activities Pain Soft Tissue Mobility Strength Tone Goals Three Impairment Tenderness to Palpation Avionics Technician Goal (LTG) Pt to report 09/21: Complaint of pain with palpation along her bilateral Pes Anserine. LTG Duration 09/19/18 Two Impairment Difficulty with stairs Avionics Technician Goal (LTG) Pt to ascend and descend two flights of stairs with no increase in symptoms LTG Duration 09/19/18 One Impairment Pt does not have appropriate home exercise program Short Term Goal (STG) Pt to be independent and complaint with appropriate HEP STG Duration 08/19/18 Assessment Summary Assessment Pt not making any progress, recommend return to PCP to discuss alternative options Physical Therapy Plan Frequency and Duration Frequency of Treatment 2x/Week Duration of Treatment 10 weeks Plan of Care Start Date 07/20/18 Plan of Care End Date 09/28/18 Therapeutic Interventions Therapeutic Interventions Aquatic Therapy Home Exercise Program Joint Mobilizations Manual Therapy Patient/Caregiver Education Self-Care/Home Management Soft Tissue Mobilization Taping Therapeutic Activities Therapeutic Exercises Modalities Cold Pack/Ice Massage Electric Stimulation Hot Packs Iontophoresis Ultrasound Other Therapeutic Interventions Iontophoresis /c Dexamethasone : 4 mg/mL Next Visit Focus/Plan Next Note Type Treatment Note Next Visit Plan STM, Flexibility, Strengthening, US, Taping, Ionto
--- NOTE | 2018-10-17 11:27 | PT.OPDS ---
Current Diagnoses Pain in right knee (08/24/18) Pain in left knee (08/24/18) Provider Visit Care Team Role Provider Type Isis Orozco MD Family Provider Physician Specialty: Family Practice Address: [address] [place] [address], [id number] Email: [email or web address] Merino MD Attending Provider Physician Primary Care Provider Specialty: [facility] Address: [address] [place] [address], [id number] Email: [email or web address] Visit Number Visit Number 10 Discharge Summary PT-OP-B Current Condition Start: 07/20/18 11:21 Freq: Status: Active Protocol: Document 07/20/18 10:30 DCW (Rec: 07/20/18 12:55 DCW [id number]) Current Condition History of Current Condition Onset Date seven months Current Complaints medial pain bilaterally, inferior to patella in pes anserine area History of Current Condition Pt is a 73 year old female presenting with a seven month history of lower extremity pain, which began as left foot pain. Pt's initial ankle MRI revealed multiple partial tears, including partial- thickness tearing of the plantar fascia with moderate- sized plantar calcaneal spur, moderate segment longitudinal split tear of the peroneus brevis tendon, and moderate to high-grade partial-thickness tear of the posterior talofibular ligament. All of this seemingly occurred without any traumatic origin. Pt began PT and wearing an AFO in April, and pt's ankle/ foot pain began to lessen, however she began to have increased pain in her medial left knee, inferior to her patella. While she was participating in PT, she was able to perform limited hiking , however pain below left knee continued, and began increasing at the same location on the right side, particularly after performing leg press exercises. Pt now feels pain in the area of her pes anserine bilaterally, with additional pain in the calf and cisneros. Pt reports pain worst when ascending and descending stairs, and when laying in bed with her legs externally rotated. Prior Treatments and Tests MRI (Per Tai Leavitt M.D. on 03/01/2018): 1. Partial-thickness tearing of the plantar fascia with an associated moderate-sized plantar calcaneal spur. Please correlate clinically for plantar fasciitis. 2. Mild to moderate distal Achilles tendinopathy. 3. Moderate segment longitudinal split tear of the peroneus brevis tendon with corresponding tendinopathy. There is mild peroneus longus tendinopathy. 4. Moderate to high-grade partial-thickness tear of the posterior talofibular ligament . Additional lateral ankle ligament scarring is present. 5. Mild distal tibialis posterior tendinopathy. 6. Mild degenerative changes of the midfoot and hindfoot joints. 7. Probable scarring of the spring ligament without a full -thickness tear. Treatment Goals Patient/Caregiver Goals Pt's goal is to not have pain and return to hiking and stairs without hurting. Pt also notes desire to simply figure out what is happening to cause this pain. Prior Functional Status Baseline Function- ADL's Independent Baseline Function- Mobility Independent Current Functional Impairments (Reported) Functional Limitations- ADL's Difficulty/pain ascending/ descending stairs, laying in bed with ER of lower extremities. Personal Factors Other Personal Factors That May Effect HTN, Osteoarthritis, CAD, Hx Therapy/Recovery Breast Ca and Skin Ca, Hx NSTEMI (2009), Partial ankle ligament and tendon tears PT-OP-C Subjective Start: 07/20/18 11:21 Freq: Status: Active Protocol: Document 08/24/18 09:45 DCW (Rec: 08/24/18 10:30 DCW [id number]) OP-PT Subjective Patient Comments Patient Comments Pt notes increased aching yesterday and today, with no real cause. Pt also reports she is now worried about her foot, because it is beginning to feel like it did when she had multiple ligament tears. PT-OP-F Manual Assessment Start: 07/20/18 11:21 Freq: Status: Active Protocol: Document 07/27/18 09:45 DCW (Rec: 07/27/18 17:07 DCW [id number]) Manual Assessments Soft Tissue Assessment Soft Tissue Mobility Assessment Pt does have noticeable subdermal nodules throughout her lower extremities, especially along lateral thigh , anterior cisneros, and medial knee. PT-OP-L Special Tests Start: 07/20/18 11:21 Freq: Status: Active Protocol: Document 07/20/18 10:30 DCW (Rec: 07/20/18 12:55 [facility] [id number]) Special Tests Knee Special Tests Varus- 0 Degrees Test Results Negative Valgus- 0 Degrees Test Results Negative Posterior Draw Test Results Negative Ag Test Test Results Negative Anterior Draw Test Results Negative PT-OP-M Strength Start: 07/20/18 11:21 Freq: Status: Active Protocol: Document 07/20/18 10:30 DCW (Rec: 07/20/18 12:55 [facility] [id number]) Hip Strength Hip Manual Muscle Testing Right Flexion (L2) 4+ Good+ Extension (S1) 5 Normal Abduction 5 Normal Adduction 4+ Good+ External Rotation 4+ Good+ Internal Rotation 4+ Good+ Comments Specific testing of right Sartorius demonstrated increased pain and MMT of 4/5. Left Flexion (L2) 4 Good Extension (S1) 5 Normal Abduction 5 Normal Adduction 4+ Good+ External Rotation 4- Good- Internal Rotation 4+ Good+ Comments Specific testing of left Sartorius demonstrated increased pain and MMT of 3+/5 . PT-OP-T Assessment and Plan Start: 07/20/18 11:21 Freq: Status: Active Protocol: Document 10/17/18 11:24 DCW (Rec: 10/17/18 11:27 DCW [id number]) Physical Therapy Assessment Goals Three Impairment Tenderness to Palpation Mcfp Goal (LTG) Pt to report 1/4: Complaint of pain with palpation along her bilateral Pes Anserine. LTG Duration 09/19/18 Two Impairment Difficulty with stairs Mcfp Goal (LTG) Pt to ascend and descend two flights of stairs with no increase in symptoms LTG Duration 09/19/18 One Impairment Pt does not have appropriate home exercise program Short Term Goal (STG) Pt to be independent and complaint with appropriate HEP STG Duration 08/19/18 Assessment Summary Assessment Therapist recommended pt return to PCP following her last appointment on 08/24/18. Pt has not been seen since then, her POC has , and she will require a new referral in order to return to therapy. Pt will be discharged from skilled PT at this time. Physical Therapy Plan Discharge Physical Therapy Discharge Reasons Plateau in Progress Next Visit Focus/Plan Next Note Type Discharge Summary
== END 2018-10-17 14:42 ==
LOC: PHYS 09:45
PROVIDERS: Family Provider Family Medicine; PCP Family Medicine; Visit Provider Family Medicine
DX: M25.561 Pain in right knee (principal); M25.562 Pain in left knee
CPT/HCPCS: 97014; 97035; 97110; 97140; 97161; 97535; G0283

== ENCOUNTER → 2018-10-01 11:53 | Outpatient (CLI) | payer MEDICARE, OTHER, SELFPAY ==
--- NOTE | 2018-10-01 11:57 | DI.RAD.S_ITS ---
PROCEDURE: XR FOOT RT MIN 3V INDICATIONS: right heel pain TECHNIQUE: 3 views of the foot were acquired. COMPARISON: [facility], , FOOT 3V RIGHT, 07/15/2010, 10:46. FINDINGS: Bones: No fractures or dislocations. No suspicious bony lesions. Soft tissues: No tibiotalar joint effusion. Achilles tendon appears normal. IMPRESSION: Degenerative osteoarthritic change is moderate, best seen at the first MTP joint. Calcific deposits are seen within the inferior margin of the Achilles tendon and the posterior border of the plantar fascia. Plantar fascia and Achilles tendon insertion spurring also is present. No acute disease is found. Dictated by: Jake Edmond M.D. on 10/01/2018 at 12:24 Approved by: Jake Edmond M.D. on 10/01/2018 at 12:25
== END ==
PROVIDERS: Family Provider Family Medicine; PCP Family Medicine; Visit Provider Family Medicine
DX: M79.671 Pain in right foot (principal); M19.071 Primary osteoarthritis, right ankle and foot
CPT/HCPCS: 73630

== ENCOUNTER → 2019-10-18 11:38 | Outpatient (CLI) | payer MEDICARE, OTHER, SELFPAY ==
--- NOTE | 2019-10-18 | DI.MG.S_ITS ---
BILATERAL DIGITAL SCREENING MAMMOGRAM 3D/2D WITH CAD POST LUMPECTOMY: 10/18/2019 CLINICAL: Routine screening. Personal history of right breast cancer. Comparison is made to exams dated: 06/12/2018 mammogram, 02/22/2017 mammogram, and 11/17/2015 mammogram - [facility]. There are scattered fibroglandular elements in both breasts. Current study was also evaluated with a Computer Aided Detection (CAD) system. There is an oval equal density mass with a spiculated and circumscribed margin in the right breast at 11 o'clock middle depth. No other significant masses, calcifications, or other findings are seen in either breast. IMPRESSION: INCOMPLETE: NEEDS ADDITIONAL IMAGING EVALUATION The oval equal density mass in the right breast is indeterminate. Mediolateral and spot compression views as well as additional views with possible ultrasound are recommended. This exam was interpreted at Station ID: [id number]. NOTE: For mammograms, a report in lay terms will be sent to the patient. Approximately 15% of breast malignancies will not be visualized mammographically. In the management of a palpable breast mass, a negative mammogram must not discourage biopsy of a clinically suspicious lesion. Electronically Signed By: Estuardo choi/castro:10/18/2019 13:22:54 letter sent: Additional Imaging Needed ACR BI-RADS Category 0: Incomplete [id number]
== END ==
PROVIDERS: Family Provider Family Medicine; PCP Family Medicine; Visit Provider Family Medicine
DX: Z12.31 Encounter for screening mammogram for malignant neoplasm of breast (principal); Z85.3 Personal history of malignant neoplasm of breast
CPT/HCPCS: 77063; 77067

== ENCOUNTER → 2019-10-21 08:57 | Outpatient (CLI) | payer MEDICARE, OTHER, SELFPAY ==
[2019-10-21 10:30] LABS: Erythrocyte Sedimentation Rate 7 MM/HR (0-20)
[2019-10-21 10:35] LABS: Thyroid Stimulating Hormone 2.76 uIU/mL (0.47-4.68)
[2019-10-21 10:45] LABS: Alanine Aminotransferase 15 IU/L (<35); Albumin 4.1 g/dL (3.5-5.0); Albumin Globulin Ratio 1.2 (1.0-2.8); Alkaline Phosphatase 56 U/L (38-126); Aspartate Aminotransferase 27 IU/L (14-36); Bilirubin Total 0.4 mg/dL (0.2-1.3); Blood Urea Nitrogen 22 mg/dL (7-17); C-Reactive Protein Quant 0.6 mg/dL (<1.0); Calcium 9.1 mg/dL (8.4-10.2); Carbon Dioxide 31 mmol/L (22-32); Chloride 100 mmol/L (98-107); Cholesterol 279 mg/dL (140-199); Estimated Glomerular Filt Rate 53.9 mL/min (>60); Globulin 3.3 g/dL (1.7-4.1); Glucose 100 mg/dL (80-110); HDL Cholesterol 44 mg/dL (40-60); HEMOLYSIS < 15 (0-50); LDL Cholesterol Calculated 210 mg/dL (<100); Potassium 3.8 mmol/L (3.4-5.1); Sodium 137 mmol/L (137-145); Total Protein 7.4 g/dL (6.3-8.2); Triglycerides 123 mg/dL (35-150)
[2019-10-21 11:29] LABS: Creatinine Urine Random 65.6 mg/dL
[2019-10-21 11:34] LABS: Microalbumi Creatinin Ratio Ur 19.8 ug/mg CR (<30); Microalbumin Urine Random 1.3 mg/dL (0-1.6)
== END ==
PROVIDERS: Family Provider Family Medicine; PCP Family Medicine; Referring Provider Family Medicine; Visit Provider Family Medicine
DX: I10 Essential (primary) hypertension (principal); R52 Pain, unspecified; E03.9 Hypothyroidism, unspecified
CPT/HCPCS: 36415; 80053; 80061; 82043; 82570; 84443; 85651; 86140

== ENCOUNTER → 2019-10-29 10:03 | Outpatient (CLI) | payer MEDICARE, OTHER, SELFPAY ==
--- NOTE | 2019-10-29 10:06 | DI.US.S_ITS ---
PROCEDURE: US EXTREMITY NONVASC LOWER LT INDICATIONS: LT WILKS W/ SOFT TISSUE SWELLING AND PALP CORDS UNDER TECHNIQUE: Real-time scanning was performed of the medial proximal aspect of the left leg, with image documentation COMPARISON: None. FINDINGS: Multiple grayscale and color Doppler images of the left lower leg were acquired targeting the palpable area patient concern. No definable mass lesion identified in the palpable area of concern there were 2 smaller lesions visualized in this area with one appearing oval shape with a thin hypoechoic rim and likely central fatty hilum. This measures 1.1 x 0.5 x 1.4 cm and likely represents a small lymph node. There is a smaller, more inferior echogenic nodule just deep to the skin surface measuring 4 mm in size. It is also in shape with some posterior shadowing and adjacent blood flow versus artifact. Minimal amount of subcutaneous edema noted adjacent to the larger lesion. IMPRESSION: There are 2 small masses identified in the proximal left lower leg which are too small to account for the larger area correlating with patient's palpable area of concern. No other definable mass lesion seen. One of these smaller nodules likely represents a small, 1.4 cm lymph node. The second is a small superficial, nonspecific 4 mm nodule. Both masses are nonaggressive in sonographic appearance; however, both benign and malignant etiologies cannot be excluded. Recommend continued clinical surveillance with followup imaging as appropriate. Dictated by: Aashish Ybarra M.D. on 10/29/2019 at 15:19 Approved by: Aashish Ybarra M.D. on 10/29/2019 at 15:29
== END ==
PROVIDERS: Family Provider Family Medicine; PCP Family Medicine; Referring Provider Family Medicine; Visit Provider Family Medicine
DX: M79.89 Other specified soft tissue disorders (principal); R22.42 Localized swelling, mass and lump, left lower limb
CPT/HCPCS: 76882

== ENCOUNTER → 2019-11-04 09:00 | Outpatient (CLI) | payer MEDICARE, OTHER, SELFPAY ==
--- NOTE | 2019-11-04 09:02 | DI.MG.S_ITS ---
UNILATERAL RIGHT DIGITAL DIAGNOSTIC MAMMOGRAM 3D/2D WITH ADDITIONAL VIEWS: 11/04/2019 CLINICAL: Additional evaluation requested from prior study. Comparison is made to exams dated: 10/18/2019 mammogram - [facility], 06/12/2018 mammogram, and 02/22/2017 mammogram - [facility]. There are scattered fibroglandular elements in right breast. There is a 1 cm irregular equal density mass with a spiculated and circumscribed margin in the right breast at 11 o'clock middle depth. This is seen in additional views. Stable post surgical changes in the right breast. No other significant masses or calcifications are seen in the breast. IMPRESSION: INCOMPLETE: NEEDS ADDITIONAL IMAGING EVALUATION The 1 cm irregular equal density mass in the right breast is indeterminate. Further evaluation with sonogram is recommended which is scheduled to immediately follow this examination. This exam was interpreted at Station ID: [id number]. NOTE: For mammograms, a report in lay terms will be sent to the patient. Approximately 15% of breast malignancies will not be visualized mammographically. In the management of a palpable breast mass, a negative mammogram must not discourage biopsy of a clinically suspicious lesion. Electronically Signed By: Aashish Ybarra M.D. aty/:11/04/2019 09:45:48 ACR BI-RADS Category 0: Incomplete [id number]
--- NOTE | 2019-11-04 09:02 | DI.US.S_ITS ---
ULTRASOUND OF RIGHT BREAST: 11/04/2019 CLINICAL: Additional evaluation requested from prior study. Comparison is made to exams dated: 11/04/2019 mammogram, 10/18/2019 mammogram - [facility], 06/12/2018 mammogram, 02/22/2017 mammogram, and 11/17/2015 mammogram - [facility]. Color flow and real-time ultrasound of the right breast were performed. Navas scale images of the real-time examination were reviewed. There is a 0.7 cm x 0.2 cm wider than tall oval lymph node with eccentric cortical thickening in the right axillary tail. This oval lymph node is hypoechoic with preserved fatty hilum. There also is a 1.1 cm x 1.1 cm x 0.7 cm irregular mass in the right breast at 11 o'clock middle depth 6 cm from the nipple. This irregular mass is hypoechoic and correlates with mammography findings. Color flow imaging demonstrates that there is no vascularity present. IMPRESSION: SUSPICIOUS OF MALIGNANCY The 0.7 cm x 0.2 cm wider than tall oval lymph node with eccentric cortical thickening in the right axillary tail is consistent with a suspicious lymph node and is at a low suspicion for malignancy. An ultrasound guided biopsy is recommended. The 1.1 cm x 1.1 cm x 0.7 cm irregular mass in the right breast at 11 o'clock middle depth is suspicious of malignancy. An ultrasound guided biopsy is recommended. Findings and biopsy recommendations were discussed with the patient during today's visit by Dr. Angel. The patient requested that all her imaging and reports for this lesion be sent to her prior breast surgeon, Dr. Vinson of [facility]. She said she will follow up with her surgeon for follow up treatment. This exam was interpreted at Station ID: [id number]. Electronically Signed By: Aashish Ybarra M.D. aty/:11/05/2019 14:08:28 letter sent: Biopsy Required Ultrasound BI-RADS: 4a Low suspicion for malignancy
== END ==
PROVIDERS: Family Provider Family Medicine; PCP Family Medicine; Referring Provider Family Medicine; Visit Provider Family Medicine
DX: R92.8 Other abnormal and inconclusive findings on diagnostic imaging of breast (principal); N63.11 Unspecified lump in the right breast, upper outer quadrant
CPT/HCPCS: 76642; 77065; G0279

== ENCOUNTER → 2019-11-29 07:53 | Outpatient (CLI) | payer MEDICARE, OTHER, SELFPAY ==
--- NOTE | 2019-11-29 | DI.MG.S_ITS ---
UNILATERAL RIGHT DIGITAL DIAGNOSTIC MAMMOGRAM POST LUMPECTOMY POST-NEEDLE BIOPSY: 11/29/2019 CLINICAL: Right breast mass. Comparison is made to exams dated: 11/04/2019 mammogram, 10/18/2019 mammogram - [facility], and 06/12/2018 mammogram - [facility]. There are scattered fibroglandular elements in right breast. There is a marker clip in the appropriate position in the right axillary tail. This marker clip placement is at the biopsy site. There also is a marker clip in the appropriate position in the right breast at 9 o'clock middle depth. This marker clip placement is at the biopsy site. IMPRESSION: POST PROCEDURE MAMMOGRAM FOR MARKER PLACEMENT There was a successful marker clip placement in the right axillary tail. There was a successful marker clip placement in the right breast at 9 o'clock middle depth. This exam was interpreted at Station ID: [id number]. NOTE: For mammograms, a report in lay terms will be sent to the patient. Approximately 15% of breast malignancies will not be visualized mammographically. In the management of a palpable breast mass, a negative mammogram must not discourage biopsy of a clinically suspicious lesion. Electronically Signed By: Darius funes/:11/29/2019 14:24:16 copy to: NATALIYA PEREZ ACR BI-RADS Category Post-procedure mammogram for marker placement
--- NOTE | 2019-11-29 | DI.US.S_ITS ---
ULTRASOUND GUIDED BIOPSY RIGHT BREAST USING VACUUM DEVICE WITH MARKING DEVICE INSERTED: 11/29/2019 CLINICAL: Right axillary node biopsy. PATIENT CONSENT: Risks (minor bleeding, infection, vasovagal reaction and repeat procedure), benefits and alternatives were explained to the patient and written informed consent was obtained. Correlation is made to exams dated: 11/04/2019 ultrasound, 11/04/2019 mammogram, and 10/18/2019 mammogram - [facility]. An ultrasound guided biopsy using real-time ultrasound was performed for the concerning irregular shaped mass measuring 1.2 cm located in the right breast at 9 o'clock middle depth. The skin was prepped in the usual manner. Local anesthetic was administered to the access site. A small incision was made in the breast. The abnormality was approached from the lateral aspect. A biopsy needle was placed adjacent to the abnormality under ultrasound guidance. Once the needle was documented to be in the correct location, five specimens were obtained using the Mammotome biopsy system. The patient received additional local anesthetic during the procedure. A Vision clip was inserted into the biopsy cavity. The specimens were sent to the laboratory for pathological analysis. IMPRESSION: ULTRASOUND GUIDED BIOPSY MALIGNANT Ultrasound guided biopsy of the mass in the right breast at 9 o'clock middle depth was successful. Pathology demonstrates invasive ductal carcinoma. Imaging findings are concordant. Surgical/Oncological consultation are recommended. This exam was interpreted at Station ID: [id number]. Daruis funes,slc/:12/03/2019 16:20:49 copy to: NATALIYA PEREZ
--- NOTE | 2019-11-29 | PATH_ITS ---
[facility] Accession Number: [id number] . 01 Material submitted: . PART A: breast - RIGHT BREAST MASS 9:00 6 CM FN PART B: axillary tail of breast - RIGHT AXILLARY NODE . 01 Clinical history: . RIGHT BREAST MASS . 02 Diagnosis: A. Right Breast Mass at 9 o'clock, 6 cm from Nipple, Ultrasound Guided Needle Core Biopsy: Invasive ductal carcinoma with the following features: 1. [place] grade: 2 of 3 (moderately differentiated). 2. Greatest linear extent: 0.7 cm. 3. 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 4. Microcalcifications: Present and associated with infiltrating carcinoma. 5. Lymph-vascular invasion: Not identified. 6. Prognostic markers: Will be performed and the results will be reported as an addendum. . B. Right Axillary Node, Needle Core Biopsy: Negative for metastatic carcinoma. [facility] 12/02/2019 1427 Local . 02 Comment: QA performed by Dr. Gallego. . Unable to reach Dr. Merino's office to confer results as of 2:27 p.m. on 12-02-19. . . . . 02 Electronically signed: . Kiana Bailey MD, Pathologist NPI- [id number] . 01 Gross description: . (A) Received in formalin, labeled US/US BX breast perc w vac device, are multiple fragments of bright yellow and galeano-white fibrofatty tissue (1.5 x 1.3 x 0.2 cm in aggregate). Filtered and entirely submitted in cassette A1. Note: Approximate total fixation time in formalin is calculated to be 46 hours 30 minutes calculated using a collection date of 11/29/2019 with no collection time given. (B) Received in formalin, labeled AX, are multiple fragments of galeano-white, translucent tissue (0.5 x 0.1 by less than 0.1 cm in aggregate). Entirely submitted in cassette B1. ([id number]) /MRV 12/01/2019 2213 Local . 02 Pathologist provided ICD-10: C50.911 . 02 CPT . 938755, 002301, 661287, 445695, 135110 Performed at: 01 [facility] [address] [id number] MD Estuardo Angel MD Phone: [phone] Performed at: 02 [facility] [place] [address] [place] [id number] MD Patsy Gallego MD Phone: [phone]
--- NOTE | 2019-11-29 07:55 | DI.US.S_ITS ---
ULTRASOUND GUIDED BIOPSY RIGHT BREAST WITH MARKING DEVICE INSERTED: 11/29/2019 CLINICAL: Right breast mass biopsy. Right axillary node biopsy. PATIENT CONSENT: Risks (minor bleeding, infection, vasovagal reaction and repeat procedure), benefits and alternatives were explained to the patient and written informed consent was obtained. Correlation is made to exams dated: 11/04/2019 ultrasound, 11/04/2019 mammogram, 10/18/2019 mammogram - [facility], 06/12/2018 mammogram, 02/22/2017 mammogram, and 11/17/2015 mammogram - [facility]. An ultrasound guided biopsy using real-time ultrasound was performed for the small lymph node located in the right axilla with a cortical thickness of 4 mm. The skin was prepped in the usual manner. Local anesthetic was administered to the access site. A small incision was made in the breast. The abnormality was approached from the lateral aspect. A biopsy needle was placed adjacent to the abnormality under ultrasound guidance. Once the needle was documented to be in the correct location, four specimens were obtained using a BARD biopsy device. A Celero clip was inserted into the biopsy cavity. The specimens were sent to the laboratory for pathological analysis. IMPRESSION: ULTRASOUND GUIDED BIOPSY BENIGN Ultrasound guided biopsy of the lymph node in the right axillary tail was successful. Pathology is negative for metastatic carcinoma. Imaging findings are concordant. Surgical/Oncological consultation is recommended. This exam was interpreted at Station ID: [id number]. Darius funes,slc/:12/03/2019 16:13:47 copy to: NATALIYA PEREZ
== END ==
PROVIDERS: Family Provider Family Medicine; PCP Family Medicine; Referring Provider Family Medicine; Visit Provider Family Medicine
DX: C50.811 Malignant neoplasm of overlapping sites of right female breast (principal)
CPT/HCPCS: 19083; 38505; 76942; 77065

== ENCOUNTER → 2020-01-31 11:28 | Outpatient (CLI) | payer MEDICARE, OTHER, SELFPAY ==
--- NOTE | 2020-01-31 | DI.MRI.S_ITS ---
BREAST MRI OF BOTH BREASTS- WITH CAD: 01/31/2020 CLINICAL: Breast cancer. Comparison is made to exams dated: 11/29/2019 mammogram, 11/04/2019 mammogram, and 10/18/2019 mammogram - [facility]. Interpretation of this MRI was correlated with available mammograms and ultrasounds. Informed consent was obtained from the patient. 20 cc of ProHance (Gadoteridol) nonionic contrast was injected. Axial T1, T2, sagittal T1, and pre and post contrast T1 images were obtained with a dedicated breast coil. Post processing was performed including computer aided calculations of any tumor volumes and dimensions. There is mild background parenchymal enhancement. Right breast: Within the upper outer quadrant of the right breast, there are postsurgical changes consistent with prior partial mastectomy. Along the posterior margin of the surgical bed, there is an oval enhancing mass with spiculated margins measuring 1.3 x 0.9 x 1.1 cm. Kinetic enhancement curves demonstrate moderate to rapid initial rise with washout. There is a focus of magnetic stability artifact along the lateral margin of the mass corresponding to the biopsy marker clip. Findings are consistent with patient's biopsy proven malignancy. Left breast: No discrete mass or suspicious enhancement to suggest malignancy in the left breast. Miscellaneous: No definite axillary or internal mammary lymphadenopathy by size criteria. Bilateral subcentimeter axillary lymph nodes are demonstrated with preserved fatty miles. A focus of magnetic susceptibility is demonstrated within a right level I axillary node consistent with recent biopsy. A moderate-sized hiatal hernia is noted. IMPRESSION: KNOWN BIOPSY PROVEN MALIGNANCY 1. Spiculated enhancing mass demonstrated in the upper-outer quadrant along the posterior margin of the right breast surgical bed corresponding to patient's biopsy proven malignancy. Findings are compatible with recurrent disease. 2. No evidence of multifocal, multicentric, or contralateral disease. 3. No definite evidence of lymphadenopathy by size criteria. This exam was interpreted at Station ID: [id number]. Electronically Signed By: Estuardo Muro M.D. ddp/:01/31/2020 19:51:42 copy to: NATALIYA PEREZ [facility] BI-RADS Category 6: Known biopsy proven malignancy 3346F
== END ==
PROVIDERS: Family Provider Family Medicine; PCP Family Medicine; Referring Provider Surgery; Visit Provider Surgery
DX: C50.411 Malignant neoplasm of upper-outer quadrant of right female breast (principal); K44.9 Diaphragmatic hernia without obstruction or gangrene
CPT/HCPCS: 77049; A9579

== ENCOUNTER → 2020-08-07 14:49 | Outpatient (CLI) | payer MEDICARE, OTHER, SELFPAY ==
--- NOTE | 2020-08-07 | DI.MG.S_ITS ---
UNILATERAL RIGHT DIGITAL DIAGNOSTIC MAMMOGRAM 3D/2D SHORT-TERM FOLLOW-UP POST LUMPECTOMY: 08/07/2020 CLINICAL: Short term follow of the right breast. Comparison is made to exams dated: 01/31/2020 breast MRI, 11/29/2019 mammogram, 11/04/2019 mammogram, and 10/18/2019 mammogram - [facility]. There are scattered fibroglandular elements in right breast. There are benign surgical clips with overlying skin thickening in the right breast in the upper outer quadrant. Prior mass in the right breast in the upper outer quadrant has been removed. No significant masses, calcifications, or other findings are seen in the breast. IMPRESSION: BENIGN There is no mammographic evidence of malignancy. Return to annual mammogram screening schedule is recommended. Future imaging is recommended as follows: 10/19/2020 screening mammogram. Findings and recommendations were conveyed to the patient at time of exam. This exam was interpreted at Station ID: [id number]. NOTE: For mammograms, a report in lay terms will be sent to the patient. Approximately 15% of breast malignancies will not be visualized mammographically. In the management of a palpable breast mass, a negative mammogram must not discourage biopsy of a clinically suspicious lesion. Electronically Signed By: Edita whitt/:08/07/2020 15:34:48 copy to: Zeenat Merino M.D., [facility], ph: [phone], fax: [phone] letter sent: Normal Exam ACR BI-RADS Category 2: Benign Finding(s) 3342F
== END ==
PROVIDERS: Family Provider Family Medicine; PCP Family Medicine; Referring Provider Surgery; Visit Provider Surgery
DX: Z85.3 Personal history of malignant neoplasm of breast (principal)
CPT/HCPCS: 77065; G0279

== ENCOUNTER → 2021-01-08 09:32 | Outpatient (CLI) | payer MEDICARE, OTHER, SELFPAY ==
[2021-01-08 10:57] LABS: Add Manual Diff / Slide Review NO; Basophils Absolute Auto 0 /uL (0-100); Basophils Percent Auto 0.3 % (0-2); Eosinophils Absolute Auto 200 /uL (0-450); Eosinophils Percent Auto 2.7 % (2-4); Hematocrit 41.5 % (36-46); Hemoglobin 14.2 g/dL (12.0-16.0); Lymphocytes Absolute Auto 2400 /uL (1100-4500); Lymphocytes Percent Auto 39.3 % (25-40); Mean Corpuscular HGB Conc 34.2 % (30-36); Mean Corpuscular Hemoglobin 30.7 PG (26-34); Mean Corpuscular Volume 89.9 fL (80-100); Monocytes Absolute Auto 800 /uL (0-900); Monocytes Percent Auto 13.9 % (3-14); Neutrophils Absolute Auto 2700 /uL (1500-7000); Neutrophils Percent Auto 43.8 % (50-75); Platelet Count 229 X10^3/uL (150-400); Red Blood Cell Count 4.62 X10^6/uL (4.0-5.2); Red Cell Distribution Width 13.3 % (11.6-14.8)
[2021-01-08 11:06] LABS: Alanine Aminotransferase 26 IU/L (<35); Albumin 4.3 g/dL (3.5-5.0); Albumin Globulin Ratio 1.3 (1.0-2.8); Alkaline Phosphatase 63 U/L (38-126); Aspartate Aminotransferase 35 IU/L (14-36); BUN Creatinine Ratio 19.1 (6-22); Bilirubin Total 0.3 mg/dL (0.2-1.3); Blood Urea Nitrogen 17 mg/dL (7-17); Calcium 9.6 mg/dL (8.4-10.2); Carbon Dioxide 28 mmol/L (22-32); Chloride 96 mmol/L (98-107); Cholesterol 258 mg/dL (140-199); Estimated Glomerular Filt Rate > 60.0 mL/min (>60); Globulin 3.2 g/dL (1.7-4.1); Glucose 102 mg/dL (80-110); HDL Cholesterol 51 mg/dL (40-60); HEMOLYSIS 15 (0-50); LDL Cholesterol Calculated 185 mg/dL (<100); Sodium 132 mmol/L (137-145); Total Protein 7.5 g/dL (6.3-8.2); Triglycerides 109 mg/dL (35-150)
[2021-01-08 11:33] LABS: Creatinine Urine Random 47.6 mg/dL
[2021-01-08 11:40] LABS: Microalbumin Urine Random < 0.6 mg/dL (0-1.6)
[2021-01-08 11:44] LABS: Thyroid Stimulating Hormone 1.73 uIU/mL (0.47-4.68)
== END ==
PROVIDERS: Family Provider Family Medicine; PCP Family Medicine; Referring Provider Family Medicine; Visit Provider Family Medicine
DX: I10 Essential (primary) hypertension (principal); E03.9 Hypothyroidism, unspecified
CPT/HCPCS: 36415; 80053; 80061; 82043; 82570; 84443; 85025

== ENCOUNTER → 2021-01-27 09:19 | Outpatient (CLI) | payer MEDICARE, OTHER, SELFPAY ==
[2021-01-27 10:22] LABS: COVID19 -Nasal RAPID Negative (Negative)
== END ==
PROVIDERS: Family Provider Family Medicine; PCP Family Medicine; Visit Provider Surgery
DX: Z01.812 Encounter for preprocedural laboratory examination (principal); Z20.822 Contact with and (suspected) exposure to COVID-19
CPT/HCPCS: 87635; C9803

== ENCOUNTER 2021-01-28 07:29 | Day surgery (SDC) | payer MEDICARE, OTHER, SELFPAY ==
[2021-01-28] VITALS (11 sets, daily range): BP systolic 95–164; BP diastolic 49–82; PULSE 56–67; RESP 11–18; TEMP 36.1–36.4; O2SAT 92–100; BMI 35.4
[2021-01-28] MEDS: LACTATED RINGERS 1,000 ML 42 ML IV (08:00)
--- NOTE | 2021-01-28 08:24 | PM.HP.1 ---
History of Present Illness History of Present Illness Date Patient Seen: 01/28/21 Time Patient Seen: 08:25 Chief complaint: SCREENING COLONOSCOPY Narrative: screening for colon cancer. Brother from oral cancer and not anal. No family history for colon cancer. This is her second colonoscopy, last one was 11 years ago. She has change in bowel habits with thin pressed stools and constipation. No unexpected weight loss. Patient History Medical History Abnormal Pap smear of cervix (1972) Acne Actinic keratosis Breast cancer (2002) CAD (coronary artery disease) (2008) Chicken pox (1948) Chronic cough (2008) Colon polyps (2010) Congenital finger deformity (1943) CTS (carpal tunnel syndrome) (2002) Cyst of left knee joint Foot pain (1989) H. pylori infection (1998) Hayfever Heartburn (2012) History of heavy periods Hx of neutropenia Hyperlipidemia (2003) Hypertension (2009) Hypothyroidism Irregular periods/menstrual cycles Measles (1949) PR (myocardial infarction) (08/23/09) Mumps (1950) NSTEMI (non-ST elevated myocardial infarction) (08/23/09) Osteoarthritis Osteopenia Painful menstrual periods Retinal detachment Rubella (1949) Shoulder pain (2013) Skin cancer (2006) Skin cancer (2012) Thyroid nodule (2013) Uterine prolapse Whooping cough (1950) Surgical History Anesthesia History of carpal tunnel repair (10/2003) History of colonoscopy with polypectomy (2010) History of hand surgery History of heart artery stent (08/23/09) Status post appendectomy (1956) Status post breast lumpectomy (06/2003) Family & Social History Family History Brother Hypertension High cholesterol Hepatitis C Multiple myeloma Brother Anal cancer Hypothyroid Brother Hypertension High cholesterol Hypothyroid Father Heart disease Hypertension High cholesterol Depression Grandfather Cardiac failure Hemorrhagic esophagitis Cirrhosis of liver Mother Diabetes mellitus Heart disease Hypertension High cholesterol Osteoarthritis Grandfather Heart disease Hypertension High cholesterol Grandmother Parkinson's disease Cerebral aneurysm History of brain surgery Sister Age: 70 Glioblastoma History of breast cancer Hypothyroid Sjogren's disease Sister Hypertension High cholesterol Hypothyroid PVD (peripheral vascular disease) Grandmother Vulvar cancer Social History: household members spouse lives independently Yes caregiver/support person No Tobacco & Substance use: Smoking Status Never smoker alcohol intake former Substance Use Type does not use Meds Home Medications and Allergies Home Medications Medication Instructions Recorded Confirmed Type CA PANTOTHENATE/FOLIC ACID/VIT 1 tab PO QDAY #0 07/28/11 01/28/21 History (MULTIVITAMIN) [CA CARB/MAG OX/D3] #0 07/28/11 01/05/21 History [OMEGA 3] 300 - 500 mg PO QDAY #0 07/28/11 01/05/21 History [FLAX SEED] PO QDAY #0 04/15/16 01/05/21 History phytonadione (vitamin K1) 1 mg PO QDAY #0 04/15/16 01/05/21 History [Mephyton] carvedilol 12.5 mg tablet 12.5 mg PO BID #180 tab 01/05/21 01/05/21 Rx hydrochlorothiazide 25 mg tablet 25 mg PO QDAY #90 tab 01/05/21 01/28/21 Rx levothyroxine 88 mcg tablet 88 mcg PO QAM #90 tab 01/05/21 01/28/21 Rx aspirin 81 mg tablet,delayed 81 mg PO Q DAY #90 tab 01/07/21 01/28/21 Rx release sodium,potassium,mag sulfates 17.5 177 ml PO DAILY #354 ml 01/11/21 01/28/21 Rx gram-3.13 gram-1.6 gram oral soln Allergies Allergy/AdvReac Type Severity Reaction Status Date / Time dextromethorphan AdvReac Intermediate Confusion Verified 01/28/21 07:55 [From Delsy] Codeine Allergy Severe HEADACHE/ Uncoded 01/05/21 10:35 FAINTING CLASS: 24:06 - AdvReac Intermediate Muscle Pain Uncoded 01/28/21 07:55 Antihyperlipidemic Drugs Lisinopril AdvReac Mild WEAKNESS/BAD Uncoded 01/28/21 07:55 COUGH Exam Vital Signs (past 8 hours): - 01/28/21 07:58 Temperature 97.5 F L Pulse Rate 65 Respiratory Rate 18 Blood Pressure 164/79 H Pulse Oximetry 100 Oxygen Delivery Method Room Air Const General: cooperative and healthy appearing Nutritional Appearance: well nourished Orientation: alert and oriented x3 HENMT Head: normal to inspection Nose: external nose normal Face and sinus: normal facial exam Eyes General: appearance normal, both eyes and all related structures Sclera: sclerae normal Neck Neck: trachea midline Chest Chest: normal inspection of the chest Other: previous breast cancer x2 Resp Effort & Inspection: normal respiratory effort and able to speak in complete sentences Auscultation: clear to auscultation bilaterally Cardio Rate: regular rate Rhythm: regular rhythm GI Inspection: normal to inspection Palpation: soft Skin General: no rashes or lesions noted Neuro General: patient alert and patient oriented x3 Extrem General: normal to inspection Psych Thought Content: normal Judgment: judgment good Assessment & Plan Assessment & Plan narrative: Colonoscopy with moderate sedation, biopsy if needed. COVID-19 COVID-19 status: Negative Time Spent With Patient Time with patient: 15-24 minutes
--- NOTE | 2021-01-28 08:58 | P.OP.ENDO_ITS ---
Operative Date/Time/Diagnoses Date of procedure: 01/28/21 Time of procedure: 08:59 Pre-op diagnosis: Change in bowel habits Post-op diagnosis: same Procedure & Clinicians Study performed: colonoscopy with moderate sedation Same procedure as scheduled: Yes Indications: change in bowel habit Surgeon: Rachel Quiroga Procedure Notes SCOAP/Timeout: done Procedure in detail: Prep diagnosis: Change in bowel habits Postop diagnosis: Same Operative procedure: Colonoscopy with moderate sedation Surgeon: Dr. Junaid MD anesthesia: Fentanyl and Versed, see nurse's note for dosing. Findings: Small scant diverticula in the descending colon, no polyps Procedure: Patient placed in lateral position. Rectal exam performed showing normal tone. There is a perianal skin tag that is not hemorrhoidal in nature bu t benign. Scope inserted into the rectum and advanced to the ileocecal valve with minimal difficulty. Insufflation and extraction the scope including a retroflex in the rectum had the above findings. Impression: Mild scant diverticulosis in the descending colon. No polyps. No mucosal changes. Plan: Repeat colonoscopy in 10 years unless otherwise indicated by change in clinical condition or family history. Recommends increase fiber intake as well as fluids. Fiber intake goal of 25 g per day. Scope withdrawal time: 5 min Sedation minutes: 15 Findings: diverticulosis Specimen(s): none sent Complications: none Impression: Mild diverticulosis of sigmoid colon. Post-procedure Recommendations: Colonscopy in 10 years Plan for aftercare: home Follow up: as needed Disposition: PACU
[2021-01-28] MEDS: fentaNYL 250 MCG/5 ML INJ IV (09:01)
[2021-01-28] MEDS: MIDAZOLAM 5 MG/5 ML VIAL IV (09:02)
== END 2021-01-28 11:15 | disposition home or self-care (01) ==
PROVIDERS: Family Provider Family Medicine; PCP Family Medicine; Referring Provider Surgery; Visit Provider Surgery
PROC: 0DJD8ZZ Inspection of Lower Intestinal Tract, Via Natural or Artificial Opening Endoscopic (ICD-10-PCS; CPT 45378; principal; 2021-01-28 08:45)
DX: R19.4 Change in bowel habit (principal); K64.4 Residual hemorrhoidal skin tags; K57.30 Diverticulosis of large intestine without perforation or abscess without bleeding
CPT/HCPCS: 45378; 99152; J2250; J3010

== ENCOUNTER → 2021-02-01 08:59 | Outpatient (CLI) | payer MEDICARE, OTHER, SELFPAY ==
--- NOTE | 2021-02-01 09:00 | DI.ECHO.S_ITS ---
[facility]---------+ [facility] +---------+ : : [address] : : : : [id number] : : : : Phone: [phone]+ Echocardiogram Report + + :Name: MANISH LANIER Study Date: 02/01/2021 Height: 63 in : :[facility] ReadingLocation: Weight: 200 lb : : Gender: Female BSA: 1.9 m2 : :: 1945 Age: 75 yrs BP: 173/98 mmHg: :Reason For Study: Edema : :Ordering Physician: ABAD, : :KAITLIN Performed By: Herb Walden : :Referring: KAITLIN MELGOZA : + + Interpretation Summary The left ventricle is normal in size and wall thickness. The ejection fraction is estimated to be 60-65%. The right ventricle is normal in size and function. There is mild to moderate mitral regurgitation. The IVC is of normal diameter and collapses greater than 50% with a sniff. This suggests a low right atrial pressure of 3 mm Hg. There is a small left-sided pleural effusion. Procedure: A two-dimensional transthoracic echocardiogram with color flow and Doppler was performed. The study quality was technically adequate. There is no prior echocardiogram noted for this patient. The patient was in sinus rhythm with heart rates between 63-68 bpm during the exam. Left Ventricle: The left ventricle is normal in size and wall thickness. There is no thrombus. Left ventricular systolic function is normal. The ejection fraction is estimated to be 60-65%. There are no focal wall motion abnormalities. MV E/A: 1.1 Med Peak E' Jacob: 7.4 cm/sec E/E' med: 11.9. Right Ventricle: The right ventricle is normal in size and function. Atria: Both atria are normal in size. There is no Doppler evidence for an interatrial shunt. Mitral Valve: There is mild mitral annular calcification. The mitral valve leaflets appear borderline thickened, but open well. There is mild to moderate mitral regurgitation. Aortic Valve: The aortic valve is normal in structure and function. The aortic valve is trileaflet. The aortic valve opens well. There is no aortic valve stenosis. No aortic regurgitation is present. Tricuspid Valve: The tricuspid valve is normal. The right ventricular systolic pressure is estimated to be at least 28 mmHg based on an estimated right atrial pressure of 3 mm Hg. There is trace tricuspid regurgitation. Pulmonic Valve: The pulmonic valve is not well seen, but is grossly normal. There is no pulmonic valvular regurgitation. Great Vessels: The aortic root is normal size. The dimensions of the ascending aorta are normal. The IVC is of normal diameter and collapses greater than 50% with a sniff. This suggests a low right atrial pressure of 3 mm Hg. Pericardium/ Pleura There is no pericardial effusion. There is an anterior echo-free space consistent with a fat pad. There is a small left-sided pleural effusion. MMode/2D Measurements & Calculations LVIDd: 4.1 cm LVOT diam: 2.0 cm LVIDs: 2.8 cm Ao root diam: 2.7 cm FS: 30.7 % asc Aorta Diam: 3.3 cm IVSd: 1.00 cm LVPWd: 0.89 cm LV english. diameter/BSA (cm/m^2): 2.1 LV sys. diameter/BSA (cm/m^2): 1.5 LA A2 area: 19.8 cm2 RA area: 14.7 cm2 LA A4 area: 18.6 cm2 IVC diam: 1.6 cm LA length (vol): 5.3 cm LA vol: 59.2 ml LA vol index: 30.6 ml/m2 RVD1 (basal): 3.1 cm TAPSE: 2.3 cm Doppler Measurements & Calculations Ao V2 max: 142.1 cm/sec LVOT Max Jacob: 115.8 cm/sec Ao V2 mean: 93.5 cm/sec LV V1 max P.4 mmHg Ao max P.1 mmHg LV V1 VTI: 25.2 cm Ao mean P.9 mmHg ALEXANDRE(I,D): 2.7 cm2 Ao V2 VTI: 29.1 cm ALEXANDRE(V,D): 2.5 cm2 sev ratio: 0.87 ALEXANDRE indexed to BSA (cm^2/m^2): 1.4 MV E max jacob: 88.0 cm/sec TR max jacob: 247.7 cm/sec MV A max jacob: 78.3 cm/sec TR max P.5 mmHg MV E/A: 1.1 PA V2 max: 92.9 cm/sec Med Peak E' Jacob: 7.4 cm/sec PA V2 mean: 64.7 cm/sec E/E' med: 11.9 PA mean P.8 mmHg Lat Peak E' Jacob: 9.4 cm/sec PA pr(Accel): 22.9 mmHg E/E' lat: 9.4 E/e' average: 10.7 MV dec time: 0.22 sec SV(OT): 78.6 ml Reading Physician:02:35 PM
== END ==
PROVIDERS: Family Provider Family Medicine; PCP Family Medicine; Referring Provider Family Medicine; Visit Provider Family Medicine
DX: I34.0 Nonrheumatic mitral (valve) insufficiency (principal); J90 Pleural effusion, not elsewhere classified; R60.0 Localized edema
CPT/HCPCS: 93306

== ENCOUNTER → 2021-02-04 09:21 | Outpatient (CLI) | payer MEDICARE, OTHER, SELFPAY ==
--- NOTE | 2021-02-04 | DI.US.S_ITS ---
LIMITED ULTRASOUND OF RIGHT BREAST: 02/04/2021 CLINICAL: Patient returns today to evaluate a focal asymmetry in the right breast. Comparison is made to exams dated: 02/04/2021 mammogram, 08/07/2020 mammogram, 01/31/2020 breast MRI, 11/29/2019 ultrasound biopsy, 11/29/2019 ultrasound biopsy, and 11/04/2019 [facility]. Color flow and real-time ultrasound of the right breast 9-10 o'clock region were performed. Navas scale images of the real-time examination were reviewed. There is a benign 5.1 cm x 2.7 cm x 1.1 cm, estimated volume of 8 cc, irregular fluid collection in the right breast at 10 o'clock middle depth 9 cm from the nipple. This irregular fluid collection is anechoic with a well-defined boundary and posterior acoustic enhancement. Color flow imaging demonstrates that there is no vascularity present. It is uncertain if this correlates with mammography findings. No mass is seen at the 9:00 position 6 cm from the nipple near site of previously resected lesion. IMPRESSION: PROBABLY BENIGN 1) The 5.1 cm fluid collection in the right breast is consistent with a seroma and is benign. 2) No definite correlate for the possible developing asymmetry seen on mammogram. -A follow-up mammogram and possible ultrasound in 6 months is recommended to demonstrate stability. Exam findings were conveyed to the patient. Patient is advised to monitor for significant change. Clinical follow-up as needed. This exam was interpreted at Station ID: [id number]. Electronically Signed By: Salvatore Michelle M.D. slc/:02/04/2021 11:10:22 copy to: Zeenat Merino M.D., [email or web address], ph: [phone], fax: [phone] letter sent: Followup Recommended Ultrasound BI-RADS: 3 Probably benign
--- NOTE | 2021-02-04 | DI.MG.S_ITS ---
BILATERAL DIGITAL DIAGNOSTIC MAMMOGRAM 3D/2D POST LUMPECTOMY: 02/04/2021 CLINICAL: Short term follow up of the right breast, due for bilateral imaging. Comparison is made to exams dated: 08/07/2020 mammogram, 01/31/2020 breast MRI, 10/18/2019 mammogram, 11/29/2019 ultrasound biopsy, 11/04/2019 ultrasound - [facility], and 06/12/2018 mammogram - [facility]. There are scattered fibroglandular elements in both breasts. There is a possible developing 0.7 cm irregular equal density asymmetry in the right breast middle depth superior region seen on the mediolateral oblique view only. This is near the prior surgery site and localizes to the lateral breast on the tomosynthesis. This is less prominent on additional compression views. Prior right breast lumpectomy. No other significant masses, calcifications, or other findings are seen in either breast. IMPRESSION: INCOMPLETE: NEEDS ADDITIONAL IMAGING EVALUATION The possible developing 0.7 cm irregular equal density asymmetry in the right breast is indeterminate. A targeted ultrasound is recommended and will immediately follow. This exam was interpreted at Station ID: [id number]. NOTE: For mammograms, a report in lay terms will be sent to the patient. Approximately 15% of breast malignancies will not be visualized mammographically. In the management of a palpable breast mass, a negative mammogram must not discourage biopsy of a clinically suspicious lesion. Electronically Signed By: Salvatore Michelle M.D. slc/:02/04/2021 10:55:06 copy to: Zeenat Merino M.D., [facility] [employer] [facility], ph: [phone], fax: [phone] ACR BI-RADS Category 0: Incomplete 3340F
== END ==
PROVIDERS: Family Provider Family Medicine; PCP Family Medicine; Referring Provider Surgery; Visit Provider Surgery
DX: R92.8 Other abnormal and inconclusive findings on diagnostic imaging of breast (principal)
CPT/HCPCS: 76642; 77066; G0279

== ENCOUNTER → 2021-02-16 09:54 | Outpatient (CLI) | payer MEDICARE, OTHER, SELFPAY ==
[2021-02-16 11:32] LABS: Alanine Aminotransferase 22 IU/L (<35); Albumin 3.9 g/dL (3.5-5.0); Albumin Globulin Ratio 1.1 (1.0-2.8); Alkaline Phosphatase 61 U/L (38-126); Aspartate Aminotransferase 34 IU/L (14-36); Bilirubin Total 0.5 mg/dL (0.2-1.3); Blood Urea Nitrogen 21 mg/dL (7-17); Calcium 9.5 mg/dL (8.4-10.2); Carbon Dioxide 32 mmol/L (22-32); Chloride 96 mmol/L (98-107); Estimated Glomerular Filt Rate 53.8 mL/min (>60); Globulin 3.4 g/dL (1.7-4.1); Glucose 101 mg/dL (80-110); HEMOLYSIS < 15 (0-50); Potassium 3.7 mmol/L (3.4-5.1); Sodium 133 mmol/L (137-145); Total Protein 7.3 g/dL (6.3-8.2)
== END ==
PROVIDERS: Family Provider Family Medicine; PCP Family Medicine; Referring Provider Family Medicine; Visit Provider Family Medicine
DX: E87.1 Hypo-osmolality and hyponatremia (principal)
CPT/HCPCS: 80053

== ENCOUNTER → 2021-02-18 11:22 | Outpatient (CLI) | payer MEDICARE, OTHER, SELFPAY ==
--- NOTE | 2021-02-18 11:39 | DI.CT.S_ITS ---
PROCEDURE: CT ABDOMEN PELVIS W CON INDICATIONS: Significant straining BM, concern external compression TECHNIQUE: After the administration of oral and intravenous contrast, 5 mm thick sections acquired from the diaphragms to the symphysis. 5 mm thick coronal and sagittal reformats were performed. For radiation dose reduction, the following was used: automated exposure control, adjustment of mA and/or kV according to patient size. COMPARISON: None. FINDINGS: Image quality: Excellent. ABDOMEN: Lung bases: Lung bases are clear. Heart size is normal. Solid organs: Liver is normal in size and enhancement. Gallbladder appears to contain a probable large gallstone measuring up to 2.6 x 3.3 cm, best seen centered on series 3, image 28. Biliary system is non-dilated. Pancreas enhances normally. Spleen is normal in size and enhancement. No adrenal nodules. Kidneys are normal in size and enhancement, without hydronephrosis. Peritoneum and bowel: Stomach, small bowel, and colon loops are normal in caliber and wall thickness. No free fluid or air. Nodes and vessels: No retroperitoneal or mesenteric adenopathy. Aorta and inferior vena cava are normal in caliber. Miscellaneous: No ventral hernias. PELVIS: Genitourinary: Bladder wall thickness is normal. Miscellaneous: No inguinal hernias or adenopathy. No mass lesion impinging on the rectum or sigmoid bowel is seen. Bones: No suspicious bony lesions. No vertebral body compression fractures. IMPRESSION: Etiology of current symptomatology is not identified. No sign of mass impinging on the bowel structures in the abdomen or pelvis. A relatively large gallstone appears likely present within the gallbladder lumen measuring up to 2.6 x 3.3 cm. This could be confirmed with ultrasound scanning. This structure is relatively radiolucent, and is unlikely to represent a solid mass lesion. Cholesterol rich gallstones for frequently are not calcified, and yet are more easily seen by ultrasound than by CT scanning. Dictated by: Jake Edmond M.D. on 02/18/2021 at 16:47 Approved by: Jake Edmond M.D. on 02/18/2021 at 16:50
== END ==
PROVIDERS: Family Provider Family Medicine; PCP Family Medicine; Referring Provider Family Medicine; Visit Provider Family Medicine
DX: R19.8 Other specified symptoms and signs involving the digestive system and abdomen (principal)
CPT/HCPCS: 74177

== ENCOUNTER → 2021-02-23 10:21 | Outpatient (CLI) | payer MEDICARE, OTHER, SELFPAY ==
--- NOTE | 2021-02-23 10:24 | DI.US.S_ITS ---
PROCEDURE: US PERIPH VENOUS LOW EXTREM BI INDICATIONS: BILATERAL CALF PAIN TECHNIQUE: Real-time imaging, as well as color and pulse Doppler interrogation, were performed of the deep veins of both legs from the inguinal ligament to the popliteal fossa. COMPARISON: None. FINDINGS: Right: The common femoral, femoral and popliteal veins are normally compressible, and free of intraluminal thrombus. Color and pulse Doppler demonstrate normal phasic intravascular flow. There is normal augmentation response to distal compression maneuver. Left: The common femoral, femoral and popliteal veins are normally compressible, and free of intraluminal thrombus. Color and pulse Doppler demonstrate normal phasic intravascular flow. There is normal augmentation response to distal compression maneuver. Additional, dedicated ultrasound scanning is performed at the area of tender lumps. No focal ultrasound abnormalities are seen at these areas. IMPRESSION: Negative for deep venous thrombosis. Dictated by: Prashant Purdy M.D. on 02/23/2021 at 11:35 Approved by: Prashant Purdy M.D. on 02/23/2021 at 11:36
== END ==
PROVIDERS: Family Provider Family Medicine; PCP Family Medicine; Referring Provider Family Medicine; Visit Provider Family Medicine
DX: M79.661 Pain in right lower leg (principal); M79.662 Pain in left lower leg
CPT/HCPCS: 93970

== ENCOUNTER → 2021-04-13 12:11 | Outpatient (CLI) | payer MEDICARE, OTHER, SELFPAY ==
[2021-04-13 13:24] LABS: Add Manual Diff / Slide Review NO; Basophils Absolute Auto 0 /uL (0-100); Basophils Percent Auto 0.3 % (0-2); Eosinophils Absolute Auto 200 /uL (0-450); Eosinophils Percent Auto 2.5 % (2-4); Hematocrit 42.4 % (36-46); Lymphocytes Absolute Auto 2400 /uL (1100-4500); Lymphocytes Percent Auto 37.3 % (25-40); Mean Corpuscular Hemoglobin 29.8 PG (26-34); Mean Corpuscular Volume 90.1 fL (80-100); Monocytes Absolute Auto 800 /uL (0-900); Monocytes Percent Auto 12.9 % (3-14); Neutrophils Absolute Auto 3100 /uL (1500-7000); Platelet Count 262 X10^3/uL (150-400); Red Blood Cell Count 4.71 X10^6/uL (4.0-5.2); Red Cell Distribution Width 13.7 % (11.6-14.8); White Blood Cell Count 6.6 X10^3/uL (4.5-11.0)
[2021-04-13 13:43] LABS: Alanine Aminotransferase 21 IU/L (<35); Albumin 4.4 g/dL (3.5-5.0); Albumin Globulin Ratio 1.3 (1.0-2.8); Alkaline Phosphatase 59 U/L (38-126); Aspartate Aminotransferase 34 IU/L (14-36); Bilirubin Total 0.4 mg/dL (0.2-1.3); Blood Urea Nitrogen 20 mg/dL (7-17); Calcium 10.2 mg/dL (8.4-10.2); Carbon Dioxide 30 mmol/L (22-32); Chloride 98 mmol/L (98-107); Estimated Glomerular Filt Rate > 60.0 mL/min (>60); Globulin 3.5 g/dL (1.7-4.1); Glucose 97 mg/dL (80-110); HEMOLYSIS < 15 (0-50); Potassium 4.7 mmol/L (3.4-5.1); Sodium 134 mmol/L (137-145); Total Protein 7.9 g/dL (6.3-8.2)
[2021-04-13 15:05] LABS: Sodium Urine Random 31 mmol/L (30-90)
[2021-04-14 10:39] LABS: Osmolality Urine 182 mOsmol/kg (.)
== END ==
PROVIDERS: Family Provider Family Medicine; PCP Family Medicine; Referring Provider Family Medicine; Visit Provider Family Medicine
DX: I10 Essential (primary) hypertension (principal)
CPT/HCPCS: 36415; 80053; 83935; 84300; 85025

== ENCOUNTER → 2021-10-18 13:30 | Outpatient (CLI) | payer MEDICARE, OTHER, SELFPAY ==
--- NOTE | 2021-10-18 | DI.US.S_ITS ---
LIMITED ULTRASOUND OF LEFT BREAST: 10/18/2021 CLINICAL: Palpable left breast lump and focal pain. Comparison is made to exams dated: 10/18/2021 mammogram, 02/04/2021 mammogram, 01/31/2020 breast MRI, 10/18/2019 mammogram, 02/04/2021 ultrasound, and 11/04/2019 mammogram - [facility]. Real-time ultrasound of the left breast 8-10 o'clock region was performed. Navas scale images of the real-time examination were reviewed. No significant abnormalities were seen sonographically in the left breast. IMPRESSION: NEGATIVE There is no sonographic evidence of malignancy. There is no abnormality seen in the left breast to correspond with the palpable abnormality, however, clinical followup is recommended. Return to annual mammogram screening schedule is recommended. This exam was interpreted at Station ID: [id number]. Electronically Signed By: Bob avila/castro:10/18/2021 14:38:34 copy to: Zeenat Merino M.D., [facility] [employer], ph: [phone], fax: [phone] letter sent: Clinical Evaluation Ultrasound BI-RADS: 1 Negative
--- NOTE | 2021-10-18 | DI.MG.S_ITS ---
BILATERAL DIGITAL DIAGNOSTIC MAMMOGRAM 3D/2D: 10/18/2021 CLINICAL: Palpable left breast lump and focal pain. Comparison is made to exams dated: 02/04/2021 ultrasound, 02/04/2021 mammogram, 08/07/2020 mammogram, 11/29/2019 mammogram, 11/04/2019 mammogram, and 10/18/2019 mammogram - [facility]. There are scattered fibroglandular elements in both breasts. There are stable benign post operative findings in the right breast. The possible developing asymmetry in the right breast middle depth superior region seen on the mediolateral oblique view only is not reproduced and presumably represented superimposed breast tissue. No other significant masses, calcifications, or other findings are seen in either breast. IMPRESSION: INCOMPLETE: NEEDS ADDITIONAL IMAGING EVALUATION There is no abnormality seen in the left breast to correspond with the palpable abnormality in the medial aspect, however, ultrasound is recommended. This exam was interpreted at Station ID: [id number]. NOTE: For mammograms, a report in lay terms will be sent to the patient. Approximately 15% of breast malignancies will not be visualized mammographically. In the management of a palpable breast mass, a negative mammogram must not discourage biopsy of a clinically suspicious lesion. Electronically Signed By: Bob avila/castro:10/18/2021 14:34:46 copy to: Zeenat Merino M.D., [facility] [employer], ph: [phone], fax: [phone] ACR BI-RADS Category 0: Incomplete 3340F
== END ==
PROVIDERS: Family Provider Family Medicine; PCP Family Medicine; Referring Provider Surgery; Visit Provider Surgery
DX: R92.8 Other abnormal and inconclusive findings on diagnostic imaging of breast (principal); N64.4 Mastodynia; N63.25 Unspecified lump in the left breast, overlapping quadrants
CPT/HCPCS: 76642; 77066; G0279

== ENCOUNTER → 2022-02-23 07:58 | Outpatient (CLI) | payer MEDICARE, OTHER, SELFPAY ==
[2022-02-23 08:47] LABS: Alanine Aminotransferase 18 IU/L (<35); Albumin Globulin Ratio 1.3 (1.0-2.8); Alkaline Phosphatase 63 U/L (38-126); Aspartate Aminotransferase 26 IU/L (14-36); BUN Creatinine Ratio 23.9 (6-22); Bilirubin Total 0.4 mg/dL (0.2-1.3); Blood Urea Nitrogen 21 mg/dL (7-17); Calcium 9.2 mg/dL (8.4-10.2); Carbon Dioxide 31 mmol/L (22-32); Chloride 97 mmol/L (98-107); Cholesterol 237 mg/dL (140-199); Estimated Glomerular Filt Rate > 60 mL/min (>60); Globulin 3.1 g/dL (1.7-4.1); Glucose 106 mg/dL (80-110); HDL Cholesterol 56 mg/dL (40-60); HEMOLYSIS 24 (0-50); LDL Cholesterol Calculated 155 mg/dL (<100); Potassium 4.2 mmol/L (3.4-5.1); Sodium 133 mmol/L (137-145); Total Protein 7.1 g/dL (6.3-8.2); Triglycerides 129 mg/dL (35-150)
[2022-02-23 11:48] LABS: Creatinine Urine Random 63.4 mg/dL
[2022-02-23 11:52] LABS: Microalbumi Creatinin Ratio Ur 25.2 ug/mg CR (<30); Microalbumin Urine Random 1.6 mg/dL (0-1.6)
== END ==
PROVIDERS: Family Provider Family Medicine; PCP Family Medicine; Referring Provider Family Medicine; Visit Provider Family Medicine
DX: I10 Essential (primary) hypertension (principal); E03.9 Hypothyroidism, unspecified
CPT/HCPCS: 36415; 80053; 80061; 82043; 82570; 84443

== ENCOUNTER → 2022-03-24 10:35 | Outpatient (CLI) | payer MEDICARE, OTHER, SELFPAY | PROVIDERS: Family Provider Family Medicine; PCP Family Medicine; Referring Provider Family Medicine; Visit Provider Family Medicine | DX: Z78.0 Asymptomatic menopausal state (principal); Z13.820 Encounter for screening for osteoporosis; Z79.890 Hormone replacement therapy; Z85.3 Personal history of malignant neoplasm of breast | CPT/HCPCS: 77080 ==

== ENCOUNTER → 2022-04-06 09:10 | Outpatient (CLI) | payer MEDICARE, OTHER, SELFPAY ==
[2022-04-06 09:58] LABS: BUN Creatinine Ratio 21.7 (6-22); Blood Urea Nitrogen 20 mg/dL (7-17); Calcium 9.5 mg/dL (8.4-10.2); Carbon Dioxide 31 mmol/L (22-32); Chloride 99 mmol/L (98-107); Estimated Glomerular Filt Rate > 60 mL/min (>60); Glucose 105 mg/dL (80-110); HEMOLYSIS < 15 (0-50); Potassium 4.4 mmol/L (3.4-5.1); Sodium 136 mmol/L (137-145)
== END ==
PROVIDERS: Family Provider Family Medicine; PCP Family Medicine; Referring Provider Family Medicine; Visit Provider Family Medicine
DX: E87.1 Hypo-osmolality and hyponatremia (principal); I10 Essential (primary) hypertension
CPT/HCPCS: 36415; 80048

== ENCOUNTER → 2022-04-25 10:11 | Outpatient (CLI) | payer MEDICARE, OTHER, SELFPAY ==
--- NOTE | 2022-04-25 10:13 | DI.MG.S_ITS ---
UNILATERAL RIGHT DIGITAL DIAGNOSTIC MAMMOGRAM 3D/2D POST LUMPECTOMY: 04/25/2022 CLINICAL: Lump in the Right breast. Comparison is made to exams dated: 10/18/2021 mammogram, 02/04/2021 mammogram, and 08/07/2020 mammogram - [facility]. There are scattered fibroglandular elements in right breast. There is a surgical clip with grouped dystrophic suture calcifications in the right breast at 11 o'clock anterior depth. No other significant masses or calcifications are seen in the breast. IMPRESSION: INCOMPLETE: NEEDS ADDITIONAL IMAGING EVALUATION Surgical changes and dystrophic calcifications in the right breast are probably benign. Ultrasound will be performed to evaluate for an underlying mass. This exam was interpreted at Station ID: [id number]. NOTE: For mammograms, a report in lay terms will be sent to the patient. Approximately 15% of breast malignancies will not be visualized mammographically. In the management of a palpable breast mass, a negative mammogram must not discourage biopsy of a clinically suspicious lesion. Electronically Signed By: Adi Hanson M.D. jr/:04/25/2022 12:00:53 copy to: NATALIYA PEREZ [facility] BI-RADS Category 0: Incomplete [id number]
--- NOTE | 2022-04-25 10:13 | DI.US.S_ITS ---
LIMITED ULTRASOUND OF RIGHT BREAST: 04/25/2022 CLINICAL: Palpable right breast lump with skin puckering per patient. No prior exams were available for comparison. Color flow and real-time ultrasound of the right breast 9-11 o'clock region were performed. Navas scale images of the real-time examination were reviewed. Shadowing without vascularity or mass seen in the right breast area of surgical change and dystrophic calcification. Mammographic appearance is similar to prior studies. IMPRESSION: PROBABLY BENIGN Post-surgical changes and calcifications in the right breast are probably benign. A follow-up mammogram and an ultrasound in 6 months is recommended to demonstrate stability. This exam was interpreted at Station ID: [id number]. Electronically Signed By: Adi Hanson M.D. jr/:04/25/2022 12:02:14 copy to: NATALIYA PEREZ letter sent: Followup Recommended Ultrasound BI-RADS: 3 Probably benign
== END ==
PROVIDERS: Family Provider Family Medicine; PCP Family Medicine; Referring Provider Family Medicine; Visit Provider Family Medicine
DX: R92.1 Mammographic calcification found on diagnostic imaging of breast; N63.15 Unspecified lump in the right breast, overlapping quadrants
CPT/HCPCS: 76642; 77065; G0279

== ENCOUNTER → 2022-06-13 11:30 | Outpatient (CLI) | payer MEDICARE, OTHER, SELFPAY | PROVIDERS: Family Provider Family Medicine; PCP Family Medicine; Referring Provider Family Medicine; Visit Provider Family Medicine | DX: I10 Essential (primary) hypertension (principal) | CPT/HCPCS: 93005 ==

== ENCOUNTER → 2022-10-14 10:48 | Outpatient (CLI) | payer MEDICARE, OTHER, SELFPAY ==
[2022-10-14 12:33] LABS: BUN Creatinine Ratio 19.3 (6-22); Blood Urea Nitrogen 21 mg/dL (7-17); Calcium 9.4 mg/dL (8.4-10.2); Carbon Dioxide 29 mmol/L (22-32); Chloride 99 mmol/L (98-107); Estimated Glomerular Filt Rate 52 mL/min (>60); Glucose 99 mg/dL (80-110); HEMOLYSIS < 15 (0-50); Potassium 4.6 mmol/L (3.4-5.1); Sodium 137 mmol/L (137-145)
[2022-10-14 12:40] LABS: NT-proBNP (BNP-Adult 18+) 98 pg/mL (<450)
== END ==
PROVIDERS: Family Provider Family Medicine; PCP Family Medicine; Referring Provider Nurse Practitioner; Visit Provider Nurse Practitioner
DX: I25.110 Atherosclerotic heart disease of native coronary artery with unstable angina pectoris (principal); R06.09 Other forms of dyspnea
CPT/HCPCS: 36415; 80048; 83880

== ENCOUNTER → 2022-10-26 13:31 | Outpatient (CLI) | payer MEDICARE, OTHER, SELFPAY ==
--- NOTE | 2022-10-26 13:32 | DI.MG.S_ITS ---
BILATERAL DIGITAL DIAGNOSTIC MAMMOGRAM 3D/2D: 10/26/2022 CLINICAL: Short term follow up of the right breast, due for bilateral imaging. Comparison is made to exams dated: 04/25/2022 ultrasound, 04/25/2022 mammogram, 10/18/2021 ultrasound, 10/18/2021 mammogram, 02/04/2021 ultrasound, and 02/04/2021 mammogram - [facility]. There are scattered areas of fibroglandular density in both breasts (category b / 25%-50% glandular tissue). There is a stable surgical clip with grouped dystrophic suture calcifications in the right breast at 11 o'clock anterior depth. No other significant masses, calcifications, or other findings are seen in either breast. IMPRESSION: INCOMPLETE: NEEDS ADDITIONAL IMAGING EVALUATION The stable surgical clip and calcifications in the right breast is indeterminate. An ultrasound is recommended. US will be performed and dictated separately. This exam was interpreted at Station ID: [id number]. NOTE: For mammograms, a report in lay terms will be sent to the patient. Approximately 15% of breast malignancies will not be visualized mammographically. In the management of a palpable breast mass, a negative mammogram must not discourage biopsy of a clinically suspicious lesion. Electronically Signed By: Raymundo Sevilla M.D. acr/:10/26/2022 14:11:13 copy to: NATALIYA PEREZ [facility] BI-RADS Category 0: Incomplete 3340F
--- NOTE | 2022-10-26 13:32 | DI.US.S_ITS ---
ULTRASOUND OF RIGHT BREAST: 10/26/2022 CLINICAL: Patient returns today to evaluate two focal asymmetries in the right breast. Comparison is made to exams dated: 10/26/2022 mammogram, 04/25/2022 ultrasound, 04/25/2022 mammogram, 10/18/2021 mammogram, 02/04/2021 ultrasound, and 02/04/2021 mammogram - [facility]. Real-time ultrasound of the right breast was performed. Navas scale images of the real-time examination were reviewed. In the 10:00 position there is a hypoechoic irregular area with calcifications and shadowing which corresponds with dystrophic calcifications on mammogram today which are unchanged. The measured area is slightly larger 1.1 x 1.6 x 1.1 cm compared to 1.0 x 1.1 x 0.8 cm, however has an otherwise unchanged appearance. In the 10:00 position 9 cm from the nipple there is a complicated fluid collection with an internal hypoechoic focus which is smaller measuring 1.8 x 3.8 x 0.9 cm compared to 2.7 x 5.1 x 1.1 cm. Adjacent to this fluid collection also in the 10:00 position 9 cm from the nipple there is a hypoechoic irregular area with calcifications and shadowing which is smaller measuring 1.1 x 1.1 x 1.0 cm compared to 1.8 x 1.1 x 0.8 cm. IMPRESSION: PROBABLY BENIGN Mammogram demonstrates no interval change with dystrophic calcifications. Ultrasound findings demonstrate some of the measured areas slightly larger and some slightly smaller. These findings are likely postoperative changes. A follow-up ultrasound in 6 months is recommended to demonstrate stability. This exam was interpreted at Station ID: [id number]. Electronically Signed By: Raymundo Sevilla M.D. acr/:10/26/2022 14:55:03 copy to: NATALIYA PEREZ letter sent: Followup Recommended Ultrasound BI-RADS: 3 Probably benign
== END ==
PROVIDERS: Family Provider Family Medicine; PCP Family Medicine; Referring Provider Family Medicine; Visit Provider Family Medicine
DX: R92.8 Other abnormal and inconclusive findings on diagnostic imaging of breast (principal); N63.0 Unspecified lump in unspecified breast; Z98.890 Other specified postprocedural states; R92.1 Mammographic calcification found on diagnostic imaging of breast
CPT/HCPCS: 76642; 77066; G0279

== ENCOUNTER → 2022-11-16 08:43 | Outpatient (CLI) | payer MEDICARE, OTHER, SELFPAY ==
[2022-11-16 09:46] LABS: BUN Creatinine Ratio 21.6 (6-22); Blood Urea Nitrogen 27 mg/dL (7-17); Carbon Dioxide 23 mmol/L (22-32); Chloride 100 mmol/L (98-107); Estimated Glomerular Filt Rate 44 mL/min (>60); Glucose 135 mg/dL (80-110); HEMOLYSIS < 15 (0-50); Potassium 4.5 mmol/L (3.4-5.1); Sodium 134 mmol/L (137-145)
== END ==
PROVIDERS: Family Provider Family Medicine; PCP Family Medicine; Referring Provider Nurse Practitioner; Visit Provider Nurse Practitioner
DX: I25.110 Atherosclerotic heart disease of native coronary artery with unstable angina pectoris (principal)
CPT/HCPCS: 36415; 80048

== ENCOUNTER → 2023-01-02 09:50 | Outpatient (CLI) | payer MEDICARE, OTHER, SELFPAY ==
[2023-01-02 11:01] LABS: BUN Creatinine Ratio 13.4 (6-22); Blood Urea Nitrogen 15 mg/dL (7-17); Calcium 8.9 mg/dL (8.4-10.2); Carbon Dioxide 27 mmol/L (22-32); Chloride 101 mmol/L (98-107); Estimated Glomerular Filt Rate 50 mL/min (>60); Glucose 97 mg/dL (80-110); HEMOLYSIS < 15 (0-50); Potassium 4.8 mmol/L (3.4-5.1); Sodium 133 mmol/L (137-145)
== END ==
PROVIDERS: Family Provider Family Medicine; PCP Family Medicine; Referring Provider Nurse Practitioner; Visit Provider Nurse Practitioner
DX: I25.110 Atherosclerotic heart disease of native coronary artery with unstable angina pectoris (principal)
CPT/HCPCS: 36415; 80048

== ENCOUNTER 2023-02-06 10:15 | Outpatient (RCR) | payer MEDICARE, OTHER, SELFPAY | END 2023-02-06 12:15 | LOC: CAR 10:15 | PROVIDERS: Family Provider Family Medicine; PCP Family Medicine; Referring Provider Internal Medicine Interventional Cardiology; Visit Provider Internal Medicine Interventional Cardiology | DX: Z95.5 Presence of coronary angioplasty implant and graft (principal) | CPT/HCPCS: 93798 ==

== ENCOUNTER → 2023-03-28 09:46 | Outpatient (CLI) | payer MEDICARE, OTHER, SELFPAY ==
[2023-03-28 10:42] LABS: Add Manual Diff / Slide Review NO; Basophils Absolute Auto 0 /uL (0-100); Basophils Percent Auto 0.3 % (0-2); Eosinophils Absolute Auto 100 /uL (0-450); Eosinophils Percent Auto 1.3 % (2-4); Hematocrit 39.7 % (36-46); Hemoglobin 13.4 g/dL (12.0-16.0); Lymphocytes Absolute Auto 1900 /uL (1100-4500); Lymphocytes Percent Auto 35.7 % (25-40); Mean Corpuscular HGB Conc 33.7 % (30-36); Mean Corpuscular Volume 92.1 fL (80-100); Monocytes Absolute Auto 700 /uL (0-900); Monocytes Percent Auto 12.3 % (3-14); Neutrophils Absolute Auto 2700 /uL (1500-7000); Neutrophils Percent Auto 50.4 % (50-75); Platelet Count 216 X10^3/uL (150-400); Red Blood Cell Count 4.31 X10^6/uL (4.0-5.2); White Blood Cell Count 5.4 X10^3/uL (4.5-11.0)
[2023-03-28 11:09] LABS: Cholesterol 269 mg/dL (140-199); HDL Cholesterol 60 mg/dL (40-60); Triglycerides 121 mg/dL (35-150)
[2023-03-28 11:10] LABS: LDL Cholesterol Calculated 185 mg/dL (<100)
[2023-03-28 11:24] LABS: Microalbumi Creatinin Ratio Ur 10.7 ug/mg CR (<30); Microalbumin Urine Random 0.7 mg/dL (0-1.6)
[2023-03-28 11:33] LABS: Thyroid Stimulating Hormone 0.444 uIU/mL (0.47-4.68)
== END ==
PROVIDERS: Family Provider Family Medicine; PCP Family Medicine; Referring Provider Family Medicine; Visit Provider Family Medicine
DX: I10 Essential (primary) hypertension (principal)
CPT/HCPCS: 36415; 80061; 82043; 82570; 84443; 85025

== ENCOUNTER → 2023-04-06 10:17 | Outpatient (CLI) | payer MEDICARE, OTHER, SELFPAY ==
--- NOTE | 2023-04-06 10:20 | DI.US.S_ITS ---
LIMITED ULTRASOUND OF RIGHT BREAST AND AXILLA: 04/06/2023 CLINICAL: Right breast 6 month follow up. Comparison is made to exams dated: 10/26/2022 ultrasound, 10/26/2022 mammogram, 04/25/2022 ultrasound, 04/25/2022 mammogram, 10/18/2021 mammogram, and 02/04/2021 ultrasound - [facility]. Color flow ultrasound of the right breast 10 o'clock, and axilla regions was performed. Navas scale images of the real-time examination were reviewed. No significant abnormalities were seen sonographically in the right axilla. In the 10:00 position there is a hypoechoic irregular area with calcifications and shadowing, which does not appear significantly changed when compared to the prior exam. The measured area is slightly larger 1.4 x 1.8 x 1.0 cm compared to 1.1 x 1.6 x 1.1 cm, however has an otherwise unchanged appearance. In the 10:00 position 9 cm from the nipple there is a complicated fluid collection, which is smaller measuring 1.5 x 0.9 x 0.2 cm, compared to 1.8 x 3.8 x 0.9 cm previously. Adjacent to this fluid collection also in the 10:00 position 9 cm from the nipple there is a hypoechoic irregular area with calcifications and shadowing, which measures 1.6 x 1.2 x 0.8 cm, compared to 1.1 x 1.1 x 1.0 cm and 1.8 x 1.1 x 0.8 cm previously. IMPRESSION: PROBABLY BENIGN No significant change in heterogeneous areas of postsurgical changes in the right breast, which remain probably benign. A follow-up mammogram and an ultrasound in 6 months is recommended to demonstrate stability. This exam was interpreted at Station ID: Unknown. Electronically Signed By: Bob Be M.D. ar/:04/07/2023 16:23:41 Entry: - 04/07/2023 16:23:41 copy to: NATALIYA PEREZ letter sent: Followup Recommended Ultrasound BI-RADS: 3 Probably benign
== END ==
PROVIDERS: Family Provider Family Medicine; PCP Family Medicine; Referring Provider Family Medicine; Visit Provider Family Medicine
DX: R92.1 Mammographic calcification found on diagnostic imaging of breast (principal)
CPT/HCPCS: 76642

== ENCOUNTER → 2023-05-11 09:31 | Outpatient (CLI) | payer MEDICARE, OTHER, SELFPAY ==
[2023-05-11 11:38] LABS: HEMOLYSIS < 15 (0-50); Iron 102 ug/dL (37-170)
[2023-05-11 11:49] LABS: Percent Iron Saturation 32 % (15-50); Total Iron Binding Capacity 315 ug/dL (265-497); Transferrin 234 mg/dL (206-381)
[2023-05-11 11:56] LABS: Alanine Aminotransferase 21 IU/L (<35); Albumin 3.9 g/dL (3.5-5.0); Albumin Globulin Ratio 1.3 (1.0-2.8); Alkaline Phosphatase 58 U/L (38-126); Aspartate Aminotransferase 24 IU/L (14-36); BUN Creatinine Ratio 16.3 (6-22); Bilirubin Total 0.7 mg/dL (0.2-1.3); Blood Urea Nitrogen 15 mg/dL (7-17); Calcium 9.5 mg/dL (8.4-10.2); Carbon Dioxide 29 mmol/L (22-32); Chloride 100 mmol/L (98-107); Estimated Glomerular Filt Rate > 60 mL/min (>60); Free T4, Direct Thyroxine 1.85 ng/dL (0.78-2.19); Glucose 92 mg/dL (80-110); HEMOLYSIS < 15 (0-50); Potassium 4.3 mmol/L (3.4-5.1); Sodium 134 mmol/L (137-145); Total Protein 6.9 g/dL (6.3-8.2)
[2023-05-11 12:09] LABS: Thyroid Stimulating Hormone 0.782 uIU/mL (0.47-4.68)
[2023-05-11 12:29] LABS: Ferritin 91 ng/mL (11-264)
[2023-05-11 12:43] LABS: Vitamin B12 941 pg/mL (239-931)
[2023-05-11 15:52] LABS: Vitamin D 25 Hydroxy (D3) 63.1 ng/mL (30.0-100.0)
[2023-05-12 19:07] LABS: Thyroid Peroxidase Antibodies 10 IU/mL (0-34)
[2023-05-13 02:23] LABS: Free T3, Triiodothyronine Free 3.42 pg/mL (2.77-5.27)
== END ==
PROVIDERS: Family Provider Family Medicine; PCP Family Medicine; Referring Provider Family Medicine; Visit Provider Family Medicine
DX: L65.9 Nonscarring hair loss, unspecified (principal); E03.9 Hypothyroidism, unspecified; E55.9 Vitamin D deficiency, unspecified
CPT/HCPCS: 36415; 80053; 82306; 82607; 82728; 83540; 83550; 84439; 84443; 84481; 86376; 86800

== ENCOUNTER → 2023-08-22 08:47 | Outpatient (CLI) | payer MEDICARE, OTHER, SELFPAY ==
--- NOTE | 2023-08-22 08:48 | DI.US.S_ITS ---
LIMITED ULTRASOUND OF RIGHT BREAST AND AXILLA: 08/22/2023 CLINICAL: Early 6 month follow-up of complicated cysts/masses. Comparison is made to exams dated: 08/22/2023 mammogram, 04/06/2023 ultrasound, 10/26/2022 ultrasound, 04/25/2022 ultrasound, 04/25/2022 mammogram, and 02/04/2021 ultrasound - [facility]. Color flow and real-time ultrasound of the right breast 10 o'clock, and axilla regions were performed. Navas scale images of the real-time examination were reviewed. There is a 1.4 cm x 1.1 cm x 1.1 cm (previously 1.6 cm x 1.2 cm x 0.8 cm) oval post-surgical scar in the right breast at 10 o'clock middle depth 9 cm from the nipple. This oval post-surgical scar is heterogeneously echogenic with posterior acoustic enhancement. This abnormality is not significantly changed and correlates as palpated and with mammography findings. There are related calcifications. Color flow imaging demonstrates that there is an adjacent vascularity. Adjacent similar appearing mass like areas of suspected fat necrosis are overall similar in size. No significant abnormalities were seen sonographically in the right axilla. IMPRESSION: PROBABLY BENIGN No significant change in heterogeneous areas of postsurgical changes in the right breast. This likely represents evolving fat necrosis and is probably benign. This corresponds to the palpable abnormality. No new or enlarging mass. No enlarged right axillary lymph nodes. A follow-up mammogram and an ultrasound in 6 months is recommended to demonstrate stability long-term stability. Exam findings were conveyed to the patient. Patient is advised to monitor for significant change. This exam was interpreted at Station ID: [id number]. Electronically Signed By: Salvatore Michelle M.D. slc/:08/22/2023 10:15:01 copy to: NATALIYA PEREZ letter sent: Followup Recommended Ultrasound BI-RADS: 3 Probably benign
--- NOTE | 2023-08-22 08:48 | DI.MG.S_ITS ---
UNILATERAL RIGHT DIGITAL DIAGNOSTIC MAMMOGRAM 3D/2D: 08/22/2023 CLINICAL: Short term follow up. Increasing size in lump. Comparison is made to exams dated: 10/26/2022 mammogram, 04/25/2022 mammogram, 10/18/2021 mammogram, and 02/04/2021 mammogram - [facility]. There are scattered areas of fibroglandular density in the right breast (category b / 25%-50% glandular tissue). There is a fat necrosis in the right breast at 11 o'clock anterior depth. This is not significantly changed and correlates as palpated and to post-operative changes. No other significant masses or calcifications are seen in the breast. IMPRESSION: INCOMPLETE: NEEDS ADDITIONAL IMAGING EVALUATION The fat necrosis in the right breast is not significantly changed. Patient reports an increasing palpable abnormality near this site. A targeted ultrasound is recommended and will immediately follow. This exam was interpreted at Station ID: [id number]. NOTE: For mammograms, a report in lay terms will be sent to the patient. Approximately 15% of breast malignancies will not be visualized mammographically. In the management of a palpable breast mass, a negative mammogram must not discourage biopsy of a clinically suspicious lesion. Electronically Signed By: Salvatore Michelle M.D. slc/:08/22/2023 09:37:15 copy to: NATALIYA ORTEGA BI-RADS Category 0: Incomplete 3340F
== END ==
PROVIDERS: Family Provider Family Medicine; PCP Family Medicine; Referring Provider Family Medicine; Visit Provider Family Medicine
DX: R92.8 Other abnormal and inconclusive findings on diagnostic imaging of breast (principal); R92.1 Mammographic calcification found on diagnostic imaging of breast; N64.1 Fat necrosis of breast; N63.11 Unspecified lump in the right breast, upper outer quadrant
CPT/HCPCS: 76642; 77065; G0279

== ENCOUNTER → 2023-09-13 09:46 | Outpatient (CLI) | payer MEDICARE, OTHER, SELFPAY ==
[2023-09-13 10:28] LABS: Add Manual Diff / Slide Review NO; Basophils Absolute Auto 0 /uL (0-100); Basophils Percent Auto 0.4 % (0-2); Eosinophils Absolute Auto 200 /uL (0-450); Eosinophils Percent Auto 2.9 % (2-4); Hemoglobin 13.3 g/dL (12.0-16.0); Lymphocytes Absolute Auto 1800 /uL (1100-4500); Lymphocytes Percent Auto 32.2 % (25-40); Mean Corpuscular HGB Conc 34.1 % (30-36); Mean Corpuscular Hemoglobin 31.6 PG (26-34); Mean Corpuscular Volume 92.7 fL (80-100); Monocytes Absolute Auto 700 /uL (0-900); Monocytes Percent Auto 12.2 % (3-14); Neutrophils Absolute Auto 3000 /uL (1500-7000); Neutrophils Percent Auto 52.3 % (50-75); Platelet Count 212 X10^3/uL (150-400); Red Blood Cell Count 4.21 X10^6/uL (4.0-5.2); Red Cell Distribution Width 14.5 % (11.6-14.8); White Blood Cell Count 5.7 X10^3/uL (4.5-11.0)
[2023-09-13 10:30] LABS: Appearance Urine UA CLEAR; Bilirubin Urine UA NEGATIVE (NEGATIVE); Color Urine UA YELLOW; Glucose Urine UA NEGATIVE (Negative); Ketones Urine UA NEGATIVE (NEGATIVE); Leukocyte Esterase Urine UA 2+ (NEGATIVE); Nitrite Urine UA NEGATIVE (Negative); Occult Blood Urine UA NEGATIVE (Negative); Protein Urine UA NEGATIVE (Negative); Specific Gravity Urine UA 1.015 (1.000-1.035); Urobilinogen Urine UA 0.2 E.U./dL (0.2)
[2023-09-13 10:37] LABS: RBC Urine None Seen (0-5/HPF); WBC Urine 1-5/HPF (0-5/HPF)
[2023-09-13 10:38] LABS: Bacteria Urine Moderate (10-30); Culture Indicated Urine Specimen Cultured; Squamous Epithelial Cell Urine 1-5 /HPF (0-5/HPF)
[2023-09-13 10:43] LABS: Hemoglobin A1C% w Est Avg Glu 5.5 % (4.0-6.0)
[2023-09-13 10:51] LABS: BUN Creatinine Ratio 17.4 (6-22); Blood Urea Nitrogen 20 mg/dL (7-17); Calcium 9.7 mg/dL (8.4-10.2); Carbon Dioxide 30 mmol/L (22-32); Chloride 101 mmol/L (98-107); Estimated Glomerular Filt Rate 48 mL/min (>60); Glucose 97 mg/dL (80-110); HEMOLYSIS < 15 (0-50); Potassium 4.4 mmol/L (3.4-5.1); Sodium 134 mmol/L (137-145)
== END ==
PROVIDERS: Family Provider Family Medicine; PCP Family Medicine; Referring Provider Orthopaedic Surgery; Visit Provider Orthopaedic Surgery
DX: Z01.812 Encounter for preprocedural laboratory examination (principal); R73.9 Hyperglycemia, unspecified; N39.0 Urinary tract infection, site not specified
CPT/HCPCS: 36415; 80048; 81001; 83036; 85025; 87086

== ENCOUNTER 2023-10-24 11:44 | Day surgery (SDC) | payer MEDICARE, OTHER, SELFPAY ==
[2023-10-10 13:49] VITALS: BMI 35.6
[2023-10-24] VITALS (12 sets, daily range): BP systolic 111–152; BP diastolic 54–77; PULSE 66–83; RESP 13–17; TEMP 35.6–37.3; O2SAT 93–99; BMI 34.9
--- NOTE | 2023-10-24 | DI.RAD.S_ITS ---
PROCEDURE: XR KNEE RT 1TO2V INDICATIONS: Post op TECHNIQUE: 2 view(s) of the knee acquired. COMPARISON: None. FINDINGS: Bones: Patient is status post knee joint arthroplasty. Hardware components are in expected positions. Visualized bony structures are intact. Soft tissues: Overlying postoperative changes are noted. IMPRESSION: Expected immediate postoperative appearance, status post total right knee arthroplasty. Dictated by: Rich Romero M.D. on 10/24/2023 at 19:26 Approved by: Rich Romero M.D. on 10/24/2023 at 19:27
--- NOTE | 2023-10-24 12:29 | PM.PREOP ---
Pre-operative Note Interval Note History & Physical reviewed/Exam performed by Physician: Yes Changes to H&P: No
--- NOTE | 2023-10-24 12:30 | PM.PREOP ---
Pre-operative Note Interval Note History & Physical reviewed/Exam performed by Physician: Yes Changes to H&P: No
--- NOTE | 2023-10-24 12:30 | PM.OP.1 ---
Operative Date/Time/Diagnoses Date of procedure: 10/24/23 Time of procedure: 13:10 Pre-op diagnosis: right knee OA Post-op diagnosis: same Procedure & Clinicians Procedure: Right total knee arthroplasty with robotic navigation Same procedure as scheduled: Yes Indications: The patient has had progressively worsening right knee pain with radiographic changes consistent with arthritis. Non-operative management has failed and the patient has requested total knee replacement. The risks, benefits and alternatives to surgery were discussed with the patient prior to proceeding. Risks discussed included, but were not limited to, failure to relieve pain, stiffness, infection, nerve damage, deep venous thrombosis, pulmonary embolism, stroke, coma, heart attack, permanent paralysis and , as well as the potential need for eventual revision of the prosthetic. Surgeon: Kaci Chris [employer] Supervisor: Channing Cantrell Anesthesia Type: General Operative Notes Findings: Severe right knee OA, adequate bone, adequate stability, good range motion Closure Type: primary Specimen(s): none sent Prosthetic devices, grafts, tissues, transplants, or devices: Chris and nephew delicianey BCS 2 size femur, size tibia, polyethylene, patella Estimated Blood Loss (mL): 250 Blood products transfused: none Tourniquet time (min): 108 Procedure in detail: The patient was seen in the pre-operative area, where the patient identified the right knee as the operative site and this was marked with my initials. The patient received pre-operative antibiotics, and was taken to the operating room and placed on the operative table in the supine position. After satisfactory anesthesia, a night time nanny out was performed. The right leg was encircled with a tourniquet about the proximal thigh, and the leg was prepared from the toes to the tourniquet with ChloroPrep in the usual fashion and draped through sterile drapes. The leg was elevated and exsanguinated with Eschmark bandage and the tourniquet inflated to [250] mmHg pressure. A PA was used during the procedure and was essential for intraoperative retraction and safe implantation of the components. The knee was approached through an approximately 18 cm incision centered over the patella and carried into the knee through a medial parapatellar arthrotomy. Portion of the medial and lateral meniscus was resected. Soft tissue was carefully mobilized around the patella the patella was measured with a caliper. Bone was resected from the patella and the patellar height was reconstituted with up an appropriate sized patellar component. A cover was then placed on the patella. A small amount of additional medial and lateral meniscus was resected. Kofi De Souza pins were placed in the femur and in the tibia for robotic assisted navigation. She had a very tight patellofemoral joint. I opted to do the patella initially. The femur and the tibia were carefully mapped. We did range of motion including stress views. A robotic assisted plan for resection was carefully made and then optimized. The distal femur was resected using the bur. I decided to use tibial mapping was separate portals for the Cori because of her severely tight patellofemoral joint. Bur holes were made for the tibial guide. Distal femur was resected without difficulty. We then punched the femur and placed the block. There was no evidence of notching. The anterior, posterior and chamfer cuts were then made. The posterior osteophytes and soft tissues were then removed. The posterior capsule was injected with part of a mixture of 60 ml 0.25% Marcaine mixed with 266 mg Exparel for post operative pain control. The remainder of this mixture was injected into the capsule and subcutaneous tissues during cement curing. The tibial guide was placed and the proximal tibial resection was performed. The tibia was prepared. The patient was placed in extension residual medial and lateral meniscus as well as any residual bone was carefully resected. [No] additional tibia was resected. Hemostasis was achieved especially posteriorly. Additional local was injected into the posterior capsule. The femoral component was trial was placed and the notch was finished. Trial tibial and femoral components were then placed and the knee placed through a range of motion. Range of motion was [0-130], with good stability throughout the range. The trials were then removed, and the tibia was finished. The bone was prepared with pulsatile lavage, and dried with a sponge. Cement was applied and the final prosthetics placed. Excess cement was removed during and after cement curing. A brief Betadine soak was performed. After confirming there was no extruded cement posteriorly, the final tibial insert was placed. The knee was copiously irrigated and the tourniquet deflated. Hemostasis was obtained with the Bovie cautery. The capsule was closed with interrupted Vicryl. The subcutaneous layer was closed with barbed sutures, and the skin with a running 3-0 V-Lock suture and Surgical glue. An Aquacel Ag dressing was applied and the patient was taken to recovery having tolerated the procedure well. Complications: none Post-operative Condition: stable Disposition: Acute Care Plan for aftercare: The patient will be maintained on a standard total knee replacement protocol with weight bearing as tolerated. The patient will receive aspirin and sequential compression devices for DVT prophylaxis. The patient will be discharged home when safe for the home environment.
[2023-10-24] MEDS: VANCOMYCIN 1,000 MG/200 ML PIGGYBACK 200 MG IV (12:34)
[2023-10-24] MEDS: LACTATED RINGERS 1,000 ML 42 ML IV (12:34)
[2023-10-24] MEDS: ACETAMINOPHEN 325 MG TABLET 1000 MG PO (12:34)
[2023-10-24] MEDS: CELECOXIB 200 MG CAPSULE PO (12:34)
[2023-10-24] MEDS: CEFAZOLIN 2 GM/100 ML PREMIX 100 ML IV ×2 (13:15→20:21)
[2023-10-24] MEDS: TRANEXAMIC ACID 1,000 MG VIAL 1000 MG INJ ×2 (13:15→15:25)
--- NOTE | 2023-10-24 13:35 | SUR.OPER ---
Supine on padded OR bed. Pillow under head, arms secured on padded armboards <90 degree abduction. Safety belt across torso. Non-operative leg secured with tape over blanket over lower leg. Operative leg secured in Zaheer positioner. Foam padded brace at thigh of operative leg.
[2023-10-24] MEDS: BUPIVACAINE 0.25% (PF) 60 ML, EPINEPHrine 0.3 MG INJ (13:52)
[2023-10-24] MEDS: BUPIVACAINE LIPOSOME 266 MG/20 ML VIAL INJ (13:54)
--- NOTE | 2023-10-24 17:00 | PC.NURSE ---
Pt to room 214 via bed from PACU. Pt is very sleepy but wakes to her name and then returns to sleep. SCD's on and running, IV infusing as ordered. Pt's LESTER Aggarwal at the bedside-oriented her to call light, bed controls, tv controls, and bed alarm. Bed alarm is on for safety. Pt has food and water at the bedside but is currently sleeping. LESTER agrees to call for assistance as needed.
[2023-10-24] MEDS: LACTATED RINGERS 1,000 ML 100 ML IV ×2 (17:08→22:41)
[2023-10-24] MEDS: IBUPROFEN 400 MG TABLET PO (20:09)
[2023-10-24] MEDS: ASPIRIN EC 81 MG TABLET PO (20:21)
[2023-10-24] MEDS: DOCUSATE 100 MG CAPSULE PO (20:21)
[2023-10-24] MEDS: carvediloL 12.5 MG TABLET PO (20:21)
[2023-10-24] MEDS: ACETAMINOPHEN 325 MG TABLET 650 MG PO (22:41)
[2023-10-25] MEDS: IBUPROFEN 400 MG TABLET PO ×2 (01:08→04:55)
--- NOTE | 2023-10-25 01:29 | PC.NURSE ---
Addendum entered by Ansley Williamson R.N. 10/25/23 06:26: Patient has been up to BSC x 2 since in/out cath with 100cc out the first time and 250cc the second time. Bladder scan indicating 700ccc in bladder. Dr. Chris informed and only wanted to have in/out cath again so straight cath performed by MELISSA Mi for 1300cc clear, light yellow urine. Original Note: Patient is drowsy but oriented. Breath sounds CTA with RA sat of 97%. HRR w/BP of 152/76. Denies nausea and eating food family brought for her. BT hypoactive and denies any flatus as yet. Has been unable to void more than 50cc w/initial bladder scan of 102cc. After 2nd time up to BSC bladder scan showing 475cc so in/out cath done by MELISSA Mi with return of 575cc urine. She has been able to turn in bed and was gotten up to BSC with walker and 2 assists. Aquacel dressing covered with indira to right LE is CDI. Reports minimal stinging pain in right medial knee controlled with scheduled Ibuprofen + Tylenol along with intermittent ice pack. Is wearing bilateral calf SCD's. CMS is intact. Fall risk score is high and bed alarm is activated. DIL rooming in.
[2023-10-25 03:36] VITALS: BP 129/68; PULSE 73; RESP 17; TEMP 35.9; O2SAT 96
[2023-10-25] MEDS: ACETAMINOPHEN 325 MG TABLET 650 MG PO ×2 (04:54→13:08)
[2023-10-25] MEDS: CEFAZOLIN 2 GM/100 ML PREMIX 100 ML IV (04:55)
[2023-10-25] MEDS: LEVOTHYROXINE 88 MCG TABLET PO (05:56)
[2023-10-25 06:37] LABS: Hematocrit 36.6 % (36-46); Hemoglobin 12.8 g/dL (12.0-16.0)
[2023-10-25 08:00] VITALS: BP 114/57; PULSE 73; RESP 16; TEMP 36.1; O2SAT 100
--- NOTE | 2023-10-25 08:45 | PT.IIE ---
Current Diagnoses Unilateral primary osteoarthritis, right knee (10/24/23) Surgery Performed Operation Date: 10/24/23 13:45 Actual Procedures p Total Knee Arthroplasty - Robot(Right) - Kaci Chris MD Surgical History (Last Updated 10/24/23 @ 12:08 by Bryant Abarca, MELISSA) Anesthesia History of carpal tunnel repair (10/2003) History of colonoscopy with polypectomy (2010) History of hand surgery History of heart artery stent (08/23/09) History of lumpectomy of right breast (~2019) Hx of bilateral cataract extraction (~2021) Hx of colonoscopy (01/28/21) Hx of elbow surgery (~2011) Hx of heart artery stent (~07/2022) Status post appendectomy (1956) Status post breast lumpectomy (06/2003) Medical History (Last Updated 10/10/23 @ 14:20 by Brynn Blum RN) Abnormal Pap smear of cervix (1972) Acid reflux Acne Actinic keratosis Breast cancer (2002) CAD (coronary artery disease) (2008) Chicken pox (1948) Chronic cough (2008) Colon polyps (2010) Congenital finger deformity (1943) CTS (carpal tunnel syndrome) (2002) Cyst of left knee joint Easy bruisability Foot pain (1989) H. pylori infection (1998) Hayfever Heartburn (2012) History of COVID-19 (02/2023) History of heavy periods History of Mohs micrographic surgery for skin cancer (09/2023) Hx of neutropenia Hyperlipidemia (2003) Hypertension (2009) Hypothyroidism Irregular periods/menstrual cycles Measles (1949) [place] (myocardial infarction) (08/23/09) Mumps (1950) NSTEMI (non-ST elevated myocardial infarction) (08/23/09) Osteoarthritis Osteopenia Painful menstrual periods Retinal detachment Rubella (1949) Shoulder pain (2013) Situational depression Skin cancer (2006) Skin cancer (2012) Thyroid nodule (2013) Uterine prolapse Whooping cough (1950) Physical Therapy Inpatient Evaluation/Re-Eval M1 PT/OT-IP Prior Functional Status Start: 10/25/23 13:04 Freq: NEEDED Status: Active Protocol: Document 10/25/23 08:46 AB (Rec: 10/25/23 13:22 AB [id number]) Medical Review Prior Functional Status Medical History Reviewed Yes Communication able to make needs known Mobility and Gait pt stated that she was independent with all mobilities and ambulation without AD Social History Household Members none Living Arrangements House Number of Floors (Floors) Two Floors Number of Stairs To Enter/Railing? pt stays on main level of the house has 3 steps to enter with R side wall and stated that there is a cabinet on L side Home Environment Standard Height Toilet,High Toilet,Walk in Shower,Built-In Shower Seat Home Equipment Front Wheel Walker,Quad Cane, Raised Toilet Seat w/Armrests, Shower Seat without Backrest, Long Handled Shoe Horn,Slusher Operator ,Sock Aid,Grab Bars In Shower Additional Social History Comment pt's son and DIL will be staying her for a few days and then afterwards, she will have her friends come in to assist if needed M2 PT-IP Current Condition Start: 10/25/23 13:04 Freq: NEEDED Status: Active Protocol: Document 10/25/23 08:46 AB (Rec: 10/25/23 13:22 [id number]) Physical Therapy Current Condition Current Condition Evaluation Date 10/25/23 Treatment Diagnosis s/p R TKA; difficulty in walking Onset Date 10/24/23 M3 PT-IP Subjective Start: 10/25/23 13:04 Freq: NEEDED Status: Active Protocol: Document 10/25/23 08:46 AB (Rec: 10/25/23 13:22 [id number]) Subjective Physical Therapy Visit Type Type Initial Evaluation Visit Start Time 08:46 Visit Stop Time 10:10 Notes pt seen for split visits: 846 to 905 am and 930 to 1010 am Number of BUSINESS APPLICATIONS ANALYST Visits 0 Physical Therapy Visit Comments Patient Comments agreeable to do PT Therapy Pain Assessment Pain Present Pain Present Pain Reported Location Right knee Intensity 2 Scale Used Numeric (0 - 10) Pain Management Techniques Apply Cold,Distraction, Modification of Treatment,Re- positioning,Timing of Activity with Medications M4 PT-IP Mobility and Gait Start: 10/25/23 13:04 Freq: NEEDED Status: Active Protocol: Document 10/25/23 08:46 AB (Rec: 10/25/23 13:22 [id number]) PT-Bed Mobility Assessment Supine to Sit Supine to Sit Standby Assistance PT-Transfer Assessment Sit to and From Stand Sit to and from Stand Standby Assistance,Contact Guard Assistance,1 Person Assistance,Use of Upper Extremities Equipment Transfer Assistive Device Gait Belt,Front Wheeled Walker Orthotic/Prosthetic Devices or Brace: No Transfers Transfer Destination Toilet Transfer Technique ambulated Transfer Ability Level of Assist Standby Assistance,Contact Guard Assistance,1 Person Assistance,Use of Upper Extremities Comments Mobility Comments pt supine in bed and agreeable to do PT. obtained PLOF and home set up. provided pt with post-op folder and reviewed contents. pt completed heel slides prior to mobility. pt completed supine to sit SBA. able to sit on EOb SBA. pt requested to use the toilet. completed sit to stand CGA and ambulated to the toilet using FWW CGA. presents with RLE ER and cued to correct. pt using the toilet and wants to use toilet for awhile. call light positioned next to pt and instructed to use when ready. informed NAC. checked back on pt and pt sitting on the chair. caregiver training conducted. educated pt's DIL on how to use safety belt and how to assist pt. edcuated on car transfers. educated pt and family regarding stair climbing techniques. DIL was able to put safety belt on pt and assisted pt with sit to stand and ambulation towards the stairs using fWW CGA. pt completed up/down steps using quad cane and R side wall for support min A and cues. pt repeated x 2 sets. DIL was able to assist pt safely. pt ambulated back to her room using FWW SBA to CGA and requested to use the toilet again. left pt with call light within reach. pt and family without further concerns. Gait Assessment Gait Gait Assistance Required: Standby Assistance,Contact Guard Assist Distance (Feet) 150 Able to Maintain Weight Bearing Status Yes During Gait Assistive Devices Assistive Device Gait Belt,Front Wheeled Walker Orthotic/Prosthetic Devices or Brace: No Gait Deviations General Gait Pattern Decreased Stride Length, Decreased Feet Clearance Factors Limiting Gait Function Factors Limiting Gait Function Decreased Activity Tolerance, Decreased Strength,Limited Range of Motion,Pain,Poor Balance,Poor Safety Awareness Stair Climbing Assessment Evaluation Level of Assist On Stairs Minimal Assistance Devices Stair Climbing Assistive Devices Small Base Quad Cane Technique/Endurance Stair Climbing Direction Ascend and Descend Stair Climbing Technique Step to Step Number of Steps Climbed 3 Query Text: Stair Climbing Set # Repetitions (reps) 2 PT-Balance Assessment Sitting Balance and Reactions Static Sitting Balance Ability Normal Dynamic Sitting Balance Ability Good Standing Balance and Reactions Static Standing Balance Ability Fair Dynamic Standing Balance Ability Fair Device Used FWW M5 PT-IP Objective Assessments Start: 10/25/23 13:04 Freq: NEEDED Status: Active Protocol: Document 10/25/23 08:46 AB (Rec: 10/25/23 13:22 AB [id number]) Orientation Orientation/Cognition Level of Alertness Alert Orientation Name,Place,Situation Language Function Ability No Deficits Noted Safety Awareness Decreased Safety Awareness Memory Description No Deficits Noted Gross Range of Motion Lower Extremity ROM Assessment Within Functional Limits Impairments R knee flexion: ~ 70 deg R knee extesion: ~ 10 deg less to 0 Strength Lower Extremity Strength Assessment Right Impaired Hip 4/5 Knee 3+/5 Sensation Assessment Sensation Gross Sensation WNL Muscle Tone Muscle Tone WNL Yes M6 PT-IP Treatment Start: 10/25/23 13:04 Freq: NEEDED Status: Active Protocol: Document 10/25/23 08:46 AB (Rec: 10/25/23 13:22 AB [id number]) Physical Therapy Treatment Education Education Provided Precautions,Weight Bearing Status,Post-Op Packet,Safety M7 PT-IP Assessment and Plan Start: 10/25/23 13:04 Freq: NEEDED Status: Active Protocol: Document 10/25/23 08:46 AB (Rec: 10/25/23 13:22 AB [id number]) PT Summary Assessment and Plan Potential Rehabilitation Potential Fair Status of Condition at Evaluation Stable Summary Impairments Pain,ROM,Strength,Balance, Coordination,Sensation,Tone, Cognition,Bed Mobility, Transfers,Gait,Activity Tolerance Assessment Summary pt is an 78 y/o F s/p R TKA POD 1. pt requiring SBA to CGA with mobility using FWW. caregiver training completed and DIL was able to safely assist pt with mobility. pt may go home when medically stable. Goals Bed Mobility Goal Independent Transfer Goal Independent,Front Wheeled Walker Gait Goal Independent,Front Wheel Walker Gait Distance 300 Other Goals up/down 3 steps R wall + quad cane Days to Meet Goals 5 Frequency of Treatment Frequency Of Treatment Twice a Day Treatment Plan Physical Therapy Treatment Plan Bed Mobility Training,Transfer Training,Gait Training, Therapeutic Exercise,Balance Retraining,Post Op Education, Discharge Planning,Hot or Cold Pack,Neuromuscular Re-ed, Coordination Retraining,Manual Therapy Weight Bearing Status Weight Bearing Status Weight Bear as Tolerated Allowed Weight Bearing Amount (enter % RLE WBAT or #) (%) Recommendations To Nursing Amount of Assist Needed 1 Person Assist Discharge Recommendations PT Discharge Recommendations Home with Assistance, Outpatient PT Transportation Needs at Discharge Private Vehicle
[2023-10-25 09:12] VITALS: BP 114/57
[2023-10-25] MEDS: MULTIVITAMIN 1 TABLET 1 TAB PO (09:12)
[2023-10-25] MEDS: LOSARTAN 50 MG TABLET PO (09:12)
[2023-10-25 09:13] VITALS: BP 114/57
[2023-10-25] MEDS: carvediloL 12.5 MG TABLET PO (09:13)
[2023-10-25] MEDS: ASPIRIN EC 81 MG TABLET PO (09:13)
[2023-10-25] MEDS: DOCUSATE 100 MG CAPSULE PO (09:13)
--- NOTE | 2023-10-25 10:38 | OT.IP.EVAL ---
Addendum entered and electronically signed by Gudelia Kilgore OT 10/25/23 13:31: esign Original Note: Current Diagnoses Unilateral primary osteoarthritis, right knee (10/24/23) Surgery Performed Operation Date: 10/24/23 13:45 Actual Procedures p Total Knee Arthroplasty - Robot(Right) - Kaci Chris MD Past Medical History (Last Updated 10/10/23 @ 14:20 by Brynn Blum, RN) Abnormal Pap smear of cervix (1972) Acid reflux Acne Actinic keratosis Breast cancer (2002) CAD (coronary artery disease) (2008) Chicken pox (1948) Chronic cough (2008) Colon polyps (2010) Congenital finger deformity (1943) CTS (carpal tunnel syndrome) (2002) Cyst of left knee joint Easy bruisability Foot pain (1989) H. pylori infection (1998) Hayfever Heartburn (2012) History of COVID-19 (02/2023) History of heavy periods History of Mohs micrographic surgery for skin cancer (09/2023) Hx of neutropenia Hyperlipidemia (2003) Hypertension (2009) Hypothyroidism Irregular periods/menstrual cycles Measles (1949) [place] (myocardial infarction) (08/23/09) Mumps (1950) NSTEMI (non-ST elevated myocardial infarction) (08/23/09) Osteoarthritis Osteopenia Painful menstrual periods Retinal detachment Rubella (1949) Shoulder pain (2013) Situational depression Skin cancer (2006) Skin cancer (2012) Thyroid nodule (2013) Uterine prolapse Whooping cough (1950) Surgical History (Last Updated 10/24/23 @ 12:08 by Bryant Abarca RN) Anesthesia History of carpal tunnel repair (10/2003) History of colonoscopy with polypectomy (2010) History of hand surgery History of heart artery stent (08/23/09) History of lumpectomy of right breast (~2019) Hx of bilateral cataract extraction (~2021) Hx of colonoscopy (01/28/21) Hx of elbow surgery (~2011) Hx of heart artery stent (~07/2022) Status post appendectomy (1956) Status post breast lumpectomy (06/2003) Occupational Therapy Inpatient Evaluation/Re-Eval M1 PT/OT-IP Prior Functional Status Start: 10/25/23 11:51 Freq: NEEDED Status: Active Protocol: Document 10/25/23 10:09 CCC (Rec: 10/25/23 12:18 [facility] [id number]) Medical Review Prior Functional Status Communication Independent. Activities of Daily Living and IADL's Pt able to do her ADL on her own. Prior Functional Level (Other details) Pt to have family stay with her to assist her. Social History Household Members none Living Arrangements House Number of Floors (Floors) Two Floors Number of Stairs To Enter/Railing? Pt states does not have to go upstairs. Pt has 3 steps with no rails to enter but states hold onto the wall. Home Environment Standard Height Toilet,Walk in Shower Home Equipment Front Wheel Walker,quad cane, Shower Seat without Backrest,Long Handled Shoe Horn,Field Machinist,Sock Aid M2 OT-IP Current Condition Start: 10/25/23 11:51 Freq: Status: Active Protocol: Document 10/25/23 10:09 [facility] (Rec: 10/25/23 12:18 [facility] [id number]) Occupational Therapy Current Condition Current Condition Evaluation Date 10/25/23 Treatment Diagnosis S/P R TKA Diagnosis Onset Date 10/24/23 M3 OT- IP Subjective and Pain Start: 10/25/23 11:51 Freq: Status: Active Protocol: Document 10/25/23 10:09 [facility] (Rec: 10/25/23 12:18 [facility] [id number]) OT- Subjective Occupational Therapy Visit Type Type Initial Evaluation Visit Start Time 10:10 Visit Stop Time 10:38 Occupational Therapy Visit Comments Patient Comments Pt agreed to get up. Patient/Caregiver Goals To go home. OT Pain Assessment Pain When Pain Assessed At Rest Pain Present Pain Present Pain Reported Location Chest Intensity 1 Scale Used Numeric (0 - 10) M4 OT- IP ADL's Start: 10/25/23 11:51 Freq: Status: Active Protocol: Document 10/25/23 10:09 [facility] (Rec: 10/25/23 12:18 [facility] [id number]) OT [id number] General Evaluation Self-Feeding Ability Independent OT ADL-Grooming General Evaluation Grooming Ability Independent Comments OT Grooming Comments Able to do while standing with FWW. OT ADL-Oral Care General Eval Oral Care Ability Independent OT ADL-Dressing General Eval Lower Body Dressing Ability Standby Assistance,Moderate Assistance Areas Needing Assistance Socks Assistive Devices Dressing Assistive Devices Field Machinist,Sock Aid Comments OT Dressing Comments Able to practice use of poultry inseminator and sock aid with pt. Educated pt to be mindful of her right knee positioning during ADL needs. OT ADL-Toileting Comments OT Toileting Comments Pt just went prior. Pt states able to wipe while seated and suggested can be easier to stand and wipe and use of wet wipes. Pt states has to use the bathroom twice at night. Suggested BSC maybe beneficial initially. OT ADL-Bathing Comments OT Bathing Comments Spoke of trying the built in seat first in the shower and to see if a shower chair maybe needed. Pt states to just plan on standing for the shower. Suggested able to put the FWW in the shower but to be sure to dry it off. M5 OT- IP IADL's Start: 10/25/23 11:51 Freq: Status: Active Protocol: Document 10/25/23 10:09 [facility] (Rec: 10/25/23 12:18 [facility] [id number]) OT-Instrumental Activities of Daily Living Deficits IADL Deficits Identified Deficits Home Safety Awareness Awareness of Need for Assistance at Home Good Awareness Ability to Problem Solve Emergency Able to Problem Solve Situations Home Safety Comments Pt's family to be present to assist with pt's needs. Medication Management Medication Management Comments Pt's family to be able to assist as needed. Money Management Money Management Comments Pt's family to assist as needed. Meal Preparation Meal Preparation Caregiver Provides Assist Haul Driver Haul Driver Caregiver Provides Assist M6 OT- IP Functional Cognition Start: 10/25/23 11:51 Freq: Status: Active Protocol: Document 10/25/23 10:09 [facility] (Rec: 10/25/23 12:18 [facility] [id number]) Cognitive Factors Limiting Selfcare Function Cognitive Ability Level of Alertness Alert Patient Orientation Name,Age,Birthday,Month,Date, Year,Day of Week,Place, Situation Attention Span Ability Capable of Focused Attention, Capable of Sustained Attention Ability to Follow Commands Able to Follow One Step Commands Cognitive Comments Cognitive Assessment Comments Pt able to follow commands for ADl and mobility needs. OT- Vision and Hearing OT- Hearing Assessment OT- Hearing Assessment WFL OT- Vision Assessment Visual Acuity Glasses All The Time Vision Assessment Comments glass off for close vision M7 OT- IP Mobility and Balance Start: 10/25/23 11:51 Freq: Status: Active Protocol: Document 10/25/23 10:09 [facility] (Rec: 10/25/23 12:18 [facility] [id number]) OT-Transfer Assessment Sit to and From Stand Sit to and from Stand Standby Assistance Transfers Transfer Ability Standby Assistance Technique Transfer Destination Chair Comments Mobility Comments SBA with FWW. Able to talk about technique of car transfers with pt and family. OT- Balance Assessment Sitting Balance and Reactions Static Sitting Balance Ability Normal Dynamic Sitting Balance Ability Good Standing Balance and Reactions Static Standing Balance Ability Good Dynamic Standing Balance Ability Fair M8 OT- IP Objective Assessments Start: 10/25/23 11:51 Freq: Status: Active Protocol: Document 10/25/23 10:09 [facility] (Rec: 10/25/23 12:18 [facility] [id number]) OT Gross Range of Motion Upper Extremity Range of Motion Assessment Within Functional Limits OT Strength Upper Extremity Strength Assessment Within Functional Limits M9 OT- IP Assessment and Plan Start: 10/25/23 11:51 Freq: Status: Active Protocol: Document 10/25/23 10:09 [facility] (Rec: 10/25/23 12:18 [facility] [id number]) OT Summary Assessment and Plan Potential Rehabilitation Potential Excellent Analytic Complexity at Evaluation Low Summary OT Impairments Pain,Strength,Balance, Functional Mobility,Dressing, Toileting,Bathing,Toilet Transfers,Shower Transfers, Activity Tolerance Progress Towards Goals Progressing Toward Goals Assessment Summary Pt low complexity and main barriers are steps, needing assist for IADL and showering needs. Pt has a very supportive family to be staying with her and pt to attend outpt PT. Goals Dressing Goal Independent,Field Machinist,Sock Aid Toileting Goal Independent Bathing Goal Independent Toilet Transfer Goal Independent Shower Transfer Goal Independent Days to Meet Goals 7 Frequency of Treatment Frequency Of Treatment Once a Day Treatment Plan OT Treatment Plan ADL Training,Functional Mobility,Patient/Family Education,Discharge Planning Discharge Recommendations OT Discharge Recommendations Home with Assistance, Outpatient PT Home [place] [facility] [place] Private Vehicle
--- NOTE | 2023-10-25 13:33 | PC.NURSE ---
Pt is dressed and ready for discharge home with family. IV has been removed. Went over d/c instructions with Pt and Family-discussed d/c meds, time of last dose, reviewed stroke education, s/s of infection, dressing, showering, knee precautions, no driving while on narcotics, drinking plenty of fluids to prevent constipation or dehydration and follow up. Pt denied further questions and was taken out via w/c by SALOON KEEPER to pov with family and all belongings.
--- NOTE | 2023-10-25 14:11 | P.DS_ITS ---
History of Present Illness History of Present Illness Chief complaint: Right TKA *OPB* Narrative: Operative Date/Time/Diagnoses Date of procedure: 10/24/23 Time of procedure: 13:10 Pre-op diagnosis: right knee OA Post-op diagnosis: same Procedure & Clinicians Procedure: Right total knee arthroplasty with robotic navigation Same procedure as scheduled: Yes Indications: The patient has had progressively worsening right knee pain with radiographic changes consistent with arthritis. Non-operative management has failed and the patient has requested total knee replacement. The risks, benefits and alternatives to surgery were discussed with the patient prior to proceeding. Risks discussed included, but were not limited to, failure to relieve pain, stiffness, infection, nerve damage, deep venous thrombosis, pulmonary embolism, stroke, coma, heart attack, permanent paralysis and , as well as the potential need for eventual revision of the prosthetic. Surgeon: Kaci Chris Hub Cutter: Channing Cantrell Anesthesia Type: General Patient is a 78 year old female who is POD#1 s/p right TKA by Dr. Chris. Lives alone but son who is an ER physician plans to stay with her until Monday. She also has friends willing to stay with her after Monday if needed. Overall doing okay. Has been able to get up and walk with PT, did stairs with PT aswell. Pain is well managed with oral pain medication as needed. Has PT set up with our [address] [place] [id number] office for 2x a week. Was straight cathed last night 2x for urinary retention, bladder scanned again this morning with 700-800ml volume and was subsequently cathed again. Also reported having an episode of epigastric pain last night, an EKG was taken and reviewed by hospitalist. No acute findings and epigastric pain subsided shortly after. Denies current chest pain, SOB, fever, chills, nausea, vomiting. Discharge Providers Provider Discharge Date: 10/25/23 Primary care physician: Zeenat Merino MD Consults: 10/10/23 15:14 Consult to Anesthesiology Routine Comment: Consulting Provider: Anesthesiologist Reason for consultation: Surgeon requested re: Cardiac history 10/24/23 06:40 Consult to Anesthesiology Routine Comment: Consulting Provider: Anesthesiologist Reason for consultation: Regional block for post operative pain control Has provider been notified: No 10/24/23 16:32 Consult to Discharge Planning Routine Comment: Consult to Occupational Therapy Evaluate & Treat Comment: Physician Instructions: Evaluate and treat Consult to Physical Therapy Evaluate & Treat Comment: Physician Instructions: postop TKA protocol Discharge provider: Nahomy Richardson PA-C Summary Hospital Course Discharge Diagnosis: right knee OA s/p right total knee arthroplasty with robotic navigation Hospital Course: Hospital course complicated by acute urinary retention s/p orthopedic surgery. Exam Vital Signs (past 8 hours): - 10/25/23 08:00 10/25/23 09:12 10/25/23 09:13 Temperature 97 F L Pulse Rate 73 Respiratory Rate 16 Blood Pressure 114/57 L 114/57 L 114/57 L Pulse Oximetry 100 Oxygen Flow Rate 0 Oxygen Delivery Method Room Air Oxygen Flow Rate 0 Const General: cooperative, healthy appearing and comfortable Resp Effort & Inspection: normal respiratory effort and able to speak in complete sentences Cardio Rate: regular rate Other: Extremities appear well perfused. Brisk capillary refill. PT pulses intact. Skin Other: Clean and dry dressing intact over the right anterior knee. Extrem Other: 5/5 strength with DF, PF, EHL. Sensation intact throughout bilateral lower extremities. Calf soft and non-tender bilaterally. Right knee ROM 5-80. Objective Labs 10/25/23 05:20 Labs: Laboratory Results - last 24 hr 10/25/23 05:20 Hgb 12.8 Hct 36.6 PFSH Medical History (Updated 10/10/23 @ 14:20 by Brynn Blum RN) Situational depression Easy bruisability Acid reflux History of COVID-19 (02/2023) History of Mohs micrographic surgery for skin cancer (09/2023) Hx of neutropenia NSTEMI (non-ST elevated myocardial infarction) (08/23/09) IN (myocardial infarction) (08/23/09) Cyst of left knee joint Actinic keratosis Whooping cough (1950) Retinal detachment Uterine prolapse Congenital finger deformity (1943) H. pylori infection (1998) Heartburn (2012) Thyroid nodule (2013) Skin cancer (2012) Skin cancer (2006) Breast cancer (2002) CAD (coronary artery disease) (2008) Hyperlipidemia (2004) Hypertension (2009) Hypothyroidism Colon polyps (2010) Abnormal Pap smear of cervix (1972) History of heavy periods Irregular periods/menstrual cycles Painful menstrual periods Chicken pox (1949) Measles (1950) Mumps (195) Rubella (1949) Acne CTS (carpal tunnel syndrome) (2002) Foot pain (1989) Osteopenia Shoulder pain (2013) Hayfever Osteoarthritis Chronic cough (2008) Surgical History (Updated 10/24/23 @ 12:08 by Bryant Abarca RN) Hx of bilateral cataract extraction (~2021) Hx of elbow surgery (~2011) History of lumpectomy of right breast (~2019) Hx of heart artery stent (~07/2022) Hx of colonoscopy (01/28/21) History of heart artery stent (08/23/09) History of colonoscopy with polypectomy (2010) Anesthesia History of hand surgery History of carpal tunnel repair (10/2003) Status post breast lumpectomy (06/2003) Status post appendectomy (1956) Family History (Updated 01/28/21 @ 08:55 by Vanessa Parrish RN) Brother High cholesterol Hepatitis C Hypertension Multiple myeloma Brother Hypothyroid Oral cancer Brother High cholesterol Hypothyroid Hypertension Father High cholesterol Depression Heart disease Hypertension Grandfather Cardiac failure Cirrhosis of liver Hemorrhagic esophagitis Mother Diabetes mellitus High cholesterol Heart disease Osteoarthritis Hypertension Grandfather High cholesterol Heart disease Hypertension Grandmother History of brain surgery Cerebral aneurysm Parkinson's disease Sister Age: 73 Sjogren's disease History of breast cancer Glioblastoma Hypothyroid Sister High cholesterol Hypothyroid PVD (peripheral vascular disease) Hypertension Grandmother Vulvar cancer Social History marital status: number of children: 2 household members: none lives independently: Yes caregiver/support person: No housing: house occupational status: previously employed Smoking Status: Never smoker second hand exposure: No alcohol intake: never substance use type: does not use Discharge Assessment & Plan Assessment and Plan Assessment: Stable s/p Right TKA Plan of Treatment: 1) Keep dressing intact until 2 week follow up appointment. Okay to shower over dressing. Keep dressing clean and dry, if dressing becomes saturated okay to remove and replace with clean and dry gauze. 2) Continue multimodal pain management. Use ice for additional pain control. ASA BID for DVT prophylaxis. 3) Continue weight bearing as tolerated. Work on mobilization with outpatient PT. 4)Follow up at [facility] in 2 weeks. 5) Okay to d/c to home today pending voiding trial. Discharge Plan Discharge Plan Patient Disposition: Home Provider Discharge Comment: Follow up at [facility] in 2 weeks Discharge orders & Medications Discharge Orders: Discharge (Order); Ordered 10/25/23 Ordered By: Nahomy Richardson Prescriptions: New acetaminophen 325 mg Tablet 650 mg PO Q6H Qty: 90 0RF aspirin 81 mg Tablet,Delayed Release (Dr/Ec) 81 mg PO BID Qty: 90 0RF ibuprofen 400 mg Tablet 400 mg PO Q4H Qty: 60 0RF docusate sodium 100 mg Capsule 100 mg PO BID PRN (Reason: constipation) Qty: 30 0RF ondansetron 4 mg Tablet,Disintegrating 4 mg PO Q4HR PRN (Reason: Nausea And Vomiting) Qty: 30 0RF Continued losartan 50 mg tablet 50 mg PO DAILY Qty: 90 3RF levothyroxine 88 mcg tablet 88 mcg PO QAM Qty: 90 3RF aspirin 81 mg tablet,delayed release (DR/EC) 81 mg PO Q DAY Qty: 90 3RF carvedilol 12.5 mg tablet 12.5 mg PO BID Qty: 360 3RF multivitamin Tablet 1 tab PO DAILY Qty: 0 bisacodyl [Dulcolax (bisacodyl)] 5 mg tablet,delayed release (DR/EC) 5 mg PO BEDTIME PRN (Reason: Constipation) Patient Comments: Post op med coenzyme Q10 [CoQ-10] 100 mg Capsule 400 mg PO DAILY Follow up/Referrals: Zeenat Merino MD [Primary Care Provider] - Diet/Activity/Treatments Diet: Diet as Tolerated Activity: Continue to work on mobilization, weight bearing as tolerated. It's okay to sleep on your stomach if that is what is comfortable to you!! Cold/Heat Therapy: Ice to the knee for added pain control Skin/Wound/Dressing Care Report to your healthcare provider any signs of infection, such as:: chills, fever, night sweats, unusual drainage and unusual redness Dressing: Keep dressing intact until 2 week follow up appointment. Okay to shower over dressing. Keep dressing clean and dry, if dressing becomes saturated okay to remove and replace with clean and dry gauze. Visit Report/Discharge Packet Instructions: DI for Knee Replacement, DI for Prescription Opioid Use, Ondansetron Stand Alone Forms: Patient Portal/API, Stroke Signs & Symptoms Discharge Data Primary Care Provider: Zeenat Merino Attending Provider: Kaci Chris
--- NOTE | 2023-10-25 14:38 | CM.DANOTE ---
Initial DCP Assessment Note Pt is a 78 yo female, resident of [place], POD1 from Rt TKA by Dr Chris PCP: Zeenat Merino Payer: [facility] Reviewed chart, pt discussed in multidisciplinary rounds this morning. Therapy has cleared pt for return home w/family to assist and pt has planned for home w/family to assist, DC order from Ortho has already been initiated this morning. No barriers identified at this time to patient's safe discharge home w/family to assist; close outpatient f/u recommended. CM team will plan to follow closely in case any DC needs or concerns arise. IZAIAH King Discharge Planning/Care Management CM Discharge Assessment Start: 10/25/23 14:35 Freq: Status: Active Protocol: Document 10/25/23 14:35 CANDY (Rec: 10/25/23 14:38 CANDY [id number]) Discharge Planning Assessment Assigned [employer] IZAIAH Calzada DPOA/Assigned Designee Name Mai Magana, daughter ( [place]) Contact Information [phone] Advance Directives? Yes Advance Directives on File No History Provided By Family Member Prior Living Arrangements House Household Members none Type of transporation used prior to Drives own vehicle admit Independent with ADL's Yes Is patient alert and oriented? Yes Barriers to Discharge No Comment Home w/family, outpatient therapies Discharge Plan Home Transportation Arrangement Family Referrals Initiated None needed
== END 2023-10-25 13:36 | disposition home or self-care (01) ==
LOC: OR 11:45 → AC 13:24
PROVIDERS: Family Provider Family Medicine; PCP Family Medicine; Referring Provider Family Medicine; Visit Provider Orthopaedic Surgery
PROC: 0SRC0JZ Replacement of Right Knee Joint with Synthetic Substitute, Open Approach (ICD-10-PCS; CPT 27447; principal; 2023-10-24 13:45)
DX: M17.11 Unilateral primary osteoarthritis, right knee (principal); I10 Essential (primary) hypertension; E78.5 Hyperlipidemia, unspecified; E03.9 Hypothyroidism, unspecified; I25.10 Atherosclerotic heart disease of native coronary artery without angina pectoris; I25.2 Old myocardial infarction; Z95.5 Presence of coronary angioplasty implant and graft
CPT/HCPCS: 27447; 36415; 73560; 85014; 85018; 93005; 93010; 97116; 97161; 97165; 97530; 97535; C1776; C9290; J0171; J0690; J1100; J1170; J2405; J2704; J3010

== ENCOUNTER → 2024-04-16 10:37 | Outpatient (CLI) | payer MEDICARE, OTHER, SELFPAY ==
[2023-10-24 16:32] VITALS: BMI 34.9
[2024-04-16 11:37] LABS: Creatinine Urine Random 55.02 mg/dL
[2024-04-16 11:43] LABS: Microalbumin Urine Random 1.1 mg/dL (0-1.6)
[2024-04-16 12:00] LABS: Alanine Aminotransferase 15 IU/L (<35); Albumin Globulin Ratio 1.3 (1.0-2.8); Alkaline Phosphatase 66 U/L (38-126); Aspartate Aminotransferase 23 IU/L (14-36); BUN Creatinine Ratio 19.6 (6-22); Bilirubin Total 0.7 mg/dL (0.2-1.3); Blood Urea Nitrogen 22 mg/dL (7-17); Calcium 9.1 mg/dL (8.4-10.2); Carbon Dioxide 28 mmol/L (22-32); Chloride 104 mmol/L (98-107); Cholesterol 265 mg/dL (140-199); Estimated Glomerular Filt Rate 50 mL/min (>60); Glucose 95 mg/dL (80-110); HDL Cholesterol 55 mg/dL (40-60); HEMOLYSIS < 15 (0-50); LDL Cholesterol Calculated 188 mg/dL (<100); Potassium 4.3 mmol/L (3.4-5.1); Sodium 138 mmol/L (137-145); Triglycerides 112 mg/dL (35-150)
[2024-04-16 12:50] LABS: Thyroid Stimulating Hormone 0.909 uIU/mL (0.47-4.68)
== END ==
PROVIDERS: Family Provider Family Medicine; PCP Family Medicine; Referring Provider Family Medicine; Visit Provider Family Medicine
DX: I10 Essential (primary) hypertension (principal); E03.9 Hypothyroidism, unspecified
CPT/HCPCS: 36415; 80053; 80061; 82043; 82570; 84443

== ENCOUNTER → 2024-04-25 11:50 | Outpatient (CLI) | payer MEDICARE, OTHER, SELFPAY ==
[2023-10-24 16:32] VITALS: BMI 34.9
--- NOTE | 2024-04-25 11:51 | DI.US.S_ITS ---
LIMITED ULTRASOUND OF RIGHT BREAST: 04/25/2024 CLINICAL: Follow up from addtional views. Comparison is made to exams dated: 04/25/2024 mammogram, 08/22/2023 ultrasound, 08/22/2023 mammogram, 04/06/2023 ultrasound, 10/26/2022 ultrasound, and 10/26/2022 mammogram - [facility]. Color flow and real-time ultrasound of the right breast 10 o'clock region were performed. There is a 1.3 cm x 0.9 cm x 0.9 cm oval post-surgical scar in the right breast at 10 o'clock middle depth 9 cm from the nipple. This oval post-surgical scar is heterogeneously echogenic with posterior acoustic enhancement. This abnormality is not significantly changed and correlates as palpated and with mammography findings. There are related calcifications. Color flow imaging demonstrates that there is an adjacent vascularity. There also is a new 0.4 cm oval cyst in the right breast at 10 o'clock anterior depth 9 cm from the nipple immediately adjacent to the above described mass. This oval cyst is hypoechoic and is an incidental finding. Color flow imaging demonstrates that there is no vascularity present. IMPRESSION: PROBABLY BENIGN No significant change in heterogeneous areas of postsurgical changes in the right breast, which remain probably benign. The 1.3 cm x 0.9 cm x 0.9 cm oval post-surgical scar in the right breast at 10 o'clock middle depth is probably benign. The new 0.4 cm oval cyst in the right breast at 10 o'clock anterior depth is consistent with a complicated cyst and is probably benign. A follow-up right ultrasound in 6 months is recommended to demonstrate stability of these findings. Findings and recommendations were conveyed to the patient during today's evaluation. This exam was interpreted at Station ID: [id number]. Electronically Signed By: Aashish Ybarra M.D. aty/:04/25/2024 13:33:53 copy to: NATALIYA PEREZ letter sent: Followup Recommended Ultrasound BI-RADS: 3 Probably benign
--- NOTE | 2024-04-25 11:51 | DI.MG.S_ITS ---
BILATERAL DIGITAL DIAGNOSTIC MAMMOGRAM 3D/2D: 04/25/2024 CLINICAL: Patient returns for a 6 month follow up of the right breast, due for bilateral exam. Comparison is made to exams dated: 08/22/2023 mammogram, 10/26/2022 mammogram, 04/25/2022 mammogram, 10/18/2021 mammogram, and 02/04/2021 mammogram - [facility]. There are scattered areas of fibroglandular density in both breasts (category b / 25%-50% glandular tissue). Redemonstration of previously described fat necrosis in the right breast at 11 o'clock middle depth. This is not significantly changed and correlates as palpated and to post-operative changes. No other significant masses, calcifications, or other findings are seen in either breast. IMPRESSION: INCOMPLETE: NEEDS ADDITIONAL IMAGING EVALUATION The fat necrosis in the right breast is indeterminate and correlates with area of increasing palpable abnormality. An ultrasound is recommended for further evaluation and is scheduled to immediately follow this examination. This exam was interpreted at Station ID: [id number]. NOTE: For mammograms, a report in lay terms will be sent to the patient. Approximately 15% of breast malignancies will not be visualized mammographically. In the management of a palpable breast mass, a negative mammogram must not discourage biopsy of a clinically suspicious lesion. Electronically Signed By: Aashish Ybarra M.D. aty/:04/25/2024 12:36:34 copy to: NATALIYA PEREZ ACR BI-RADS Category 0: Incomplete [id number]
== END ==
PROVIDERS: Family Provider Family Medicine; PCP Family Medicine; Referring Provider Family Medicine; Visit Provider Family Medicine
DX: R92.1 Mammographic calcification found on diagnostic imaging of breast (principal); R92.8 Other abnormal and inconclusive findings on diagnostic imaging of breast; N60.01 Solitary cyst of right breast; L90.5 Scar conditions and fibrosis of skin; R92.323 Mammographic fibroglandular density, bilateral breasts
CPT/HCPCS: 76642; 77066; G0279

== ENCOUNTER → 2024-11-22 10:12 | Outpatient (CLI) | payer MEDICARE, OTHER, SELFPAY ==
[2023-10-24 16:32] VITALS: BMI 34.9
--- NOTE | 2024-11-22 10:14 | DI.US.S_ITS ---
US breast RT limited: 11/22/2024. BI-RADS: 3 CLINICAL: 79-year old female for right diagnostic breast U/S. Tyrer-Cuzick lifetime risk of 1.2%. PRIOR EXAMS 04/25/2024, 08/22/2023, 04/06/2023, 10/26/2022, 04/25/2022, 10/18/2021, 02/04/2021, 08/07/2020, 01/31/2020, 11/29/2019, 11/04/2019, 10/18/2019. ULTRASOUND TECHNIQUE Real-time galeano scale and color doppler imaging of the area of clinical interest was performed with image documentation. TARGETED Right Breast Ultrasound: Real-time ultrasound exam was performed focused to area of clinical and/or imaging concern. ULTRASOUND FINDINGS Right: Upper Outer at 10:00, 9 cm from nipple, measuring 1.3 x 1.1 x 0.9 cm: There is a region of scar tissue present that is unchanged in size and appearance with macrocalcifications and fat necrosis. Doppler shows only rim vascularity. Right: Upper Outer at 10:00, 9 cm from nipple, measuring 0.4 x 0.4 x 0.4 cm: There is a complicated cyst with low level echoes. Doppler shows only rim vascularity. IMPRESSION: Right (Post-op): Upper Outer at 10:00, 9 cm from nipple, measuring 1.3 x 1.1 x 0.9 cm * Probably Benign. Right (Complicated Cyst): Upper Outer at 10:00, 9 cm from nipple, measuring 0.4 x 0.4 x 0.4 cm * Probably Benign. RECOMMENDATIONS Right: Upper Outer at 10:00, 9 cm from nipple * Six month followup with diagnostic ultrasound and diagnostic mammography. Right: Upper Outer at 10:00, 9 cm from nipple * Six month followup with diagnostic ultrasound and diagnostic mammography. COMMENTS: Findings and recommendations were conveyed to the patient during today's evaluation. OVERALL ASSESSMENT CATEGORY BI-RADS-3: Probably Benign. ELECTRONICALLY SIGNED: Aashish Ybarra M.D. on 11/23/2024 at 03:49:09 PM PT Interpreting Station ID: [id number]
== END ==
PROVIDERS: Family Provider Family Medicine; PCP Family Medicine; Referring Provider Family Medicine; Visit Provider Family Medicine
DX: R92.8 Other abnormal and inconclusive findings on diagnostic imaging of breast (principal); N60.01 Solitary cyst of right breast; N64.1 Fat necrosis of breast
CPT/HCPCS: 76642

== ENCOUNTER → 2025-05-23 09:31 | Outpatient (CLI) | payer MEDICARE, OTHER, SELFPAY ==
[2023-10-24 16:32] VITALS: BMI 34.9
--- NOTE | 2025-05-23 09:36 | DI.US.S_ITS ---
MM diagnostic mammo BI, US breast RT limited: 05/23/2025 BI-RADS: 3 CLINICAL: 79-year old female for bilateral diagnostic mammogram and right diagnostic breast ultrasound that is a follow-up to diagnostic breast ultrasound on 11/22/2024. No Tyrer-Cuzick risk score calculation due to the patient's personal history of breast cancer. Patient reports a history of right breast carcinoma diagnosed at age 58. Status-post right lumpectomy. PRIOR EXAMS 11/22/2024, 04/25/2024, 08/22/2023, 04/06/2023, 10/26/2022, 04/25/2022, 10/18/2021. MAMMOGRAPHY TECHNIQUE: 2D and 3D (tomosynthesis) digital mammographic views obtained, with additional images as needed for full coverage. Current study was also evaluated with a Computer Aided Detection (CAD) system. ULTRASOUND TECHNIQUE TARGETED Right Breast Ultrasound: Real-time ultrasound exam was performed focused to area of clinical and/or imaging concern. Real-time galeano scale and color doppler imaging of the area of clinical interest was performed with image documentation. DENSITY Left: B. There are scattered areas of fibroglandular density. MAMMOGRAPHY FINDINGS Right (finding-1): Upper Outer at 11:00, Middle depth: Correlating with prior imaging concern there are multiple benign rim calcifications that are unchanged in size and appearance. This is compatible with benign fat necrosis at the patient's lumpectomy site. Left: No suspicious mass, asymmetry, microcalcification, or other abnormality seen. ULTRASOUND FINDINGS Right: Upper Outer at 10:00, 9 cm from nipple, measuring 0.3 x 0.3 x 0.4 cm - previously measuring (11/22/2024) 0.4 x 0.4 x 0.4 cm - (04/25/2024) 0.4 x 0.4 x 0.3 cm: Correlating with prior imaging concern there is a complicated cyst present. This could represent an oil cyst and fat necrosis. Right (finding-1): Upper Outer at 10:00, 9 cm from nipple, measuring 1 x 0.7 x 1 cm - previously measuring (11/22/2024) 1.3 x 0.9 x 1.1 cm: There is fat necrosis showing posterior acoustic shadowing with associated macrocalcifications. This finding has demonstrated at least two years of stability and is consistent with a benign etiology. IMPRESSION: Right (Complicated Cyst): Upper Outer at 10:00, 9 cm from nipple, measuring 0.3 x 0.3 x 0.4 cm - previously measuring (11/22/2024) 0.4 x 0.4 x 0.4 cm - (04/25/2024) 0.4 x 0.4 x 0.3 cm * Probably Benign. Left * No evidence of malignancy. RECOMMENDATIONS Right: Upper Outer at 10:00, 9 cm from nipple * Followup with diagnostic ultrasound in one year to demonstrate 2 year stability. Bilateral * Annual screening mammography in one year. COMMENTS: Findings and recommendations were conveyed to the patient during today's evaluation. OVERALL ASSESSMENT CATEGORY BI-RADS-3: Probably Benign. ELECTRONICALLY SIGNED: Shellie Alexis M.D. on 05/23/2025 at 03:45:48 PM PT Interpreting Station ID: [id number]
== END ==
LOC: MAMMO 09:33
PROVIDERS: Family Provider Family Medicine; PCP Family Medicine; Referring Provider Family Medicine; Visit Provider Family Medicine
DX: R92.8 Other abnormal and inconclusive findings on diagnostic imaging of breast (principal); R92.1 Mammographic calcification found on diagnostic imaging of breast; R92.322 Mammographic fibroglandular density, left breast; N60.01 Solitary cyst of right breast; N64.1 Fat necrosis of breast; Z85.3 Personal history of malignant neoplasm of breast
CPT/HCPCS: 76642; 77066; G0279

== ENCOUNTER → 2025-06-05 14:51 | Outpatient (CLI) | payer MEDICARE, OTHER, SELFPAY ==
[2023-10-24 16:32] VITALS: BMI 34.9
--- NOTE | 2025-06-05 14:53 | DI.US.S_ITS ---
PROCEDURE: US PERIPH VENOUS LOW EXTREM LT INDICATIONS: dvt TECHNIQUE: Real-time imaging, as well as color and pulse Doppler interrogation, were performed of the lower extremity deep veins from the inguinal ligament to the popliteal fossa, with documentation of the visualized calf veins. COMPARISON: None. FINDINGS: The common femoral, femoral, popliteal, and the visualized calf veins are normally compressible, and free of intraluminal thrombus. Color and pulse Doppler demonstrate normal phasic intraluminal flow. There is normal augmentation response to distal compression maneuver. Mayberry cyst is present measuring 5.9 cm. IMPRESSION: No findings of lower extremity deep venous thrombosis. Dictated by: Maria Del Carmen Richardson M.D. on 06/05/2025 at 16:53 Approved by: Maria Del Carmen Richardson M.D. on 06/05/2025 at 16:53
== END ==
PROVIDERS: Family Provider Family Medicine; PCP Family Medicine; Referring Provider Family Medicine; Visit Provider Family Medicine
DX: R22.42 Localized swelling, mass and lump, left lower limb (principal); I82.409 Acute embolism and thrombosis of unspecified deep veins of unspecified lower extremity; M71.22 Synovial cyst of popliteal space [Baker], left knee
CPT/HCPCS: 93971

== ENCOUNTER → 2025-06-06 09:23 | Outpatient (CLI) | payer MEDICARE, OTHER, SELFPAY ==
[2023-10-24 16:32] VITALS: BMI 34.9
[2025-06-06 10:25] LABS: Hemoglobin A1C% w Est Avg Glu 5.7 % (4.0-6.0)
[2025-06-06 10:41] LABS: Alanine Aminotransferase 16 IU/L (<35); Albumin 3.9 g/dL (3.5-5.0); Albumin Globulin Ratio 1.3 (1.0-2.8); Alkaline Phosphatase 70 U/L (38-126); Blood Urea Nitrogen 20 mg/dL (7-17); Calcium 9.5 mg/dL (8.4-10.2); Carbon Dioxide 26 mmol/L (22-32); Chloride 102 mmol/L (98-107); Cholesterol 256 mg/dL (140-199); Estimated Glomerular Filt Rate 59 mL/min (>60); Globulin 3.0 g/dL (1.7-4.1); Glucose 96 mg/dL (70-99); HDL Cholesterol 54 mg/dL (40-60); HEMOLYSIS < 15 (0-50); Potassium 4.8 mmol/L (3.4-5.1); Sodium 136 mmol/L (137-145); Total Protein 6.9 g/dL (6.3-8.2); Triglycerides 159 mg/dL (35-150)
[2025-06-06 11:05] LABS: Thyroid Stimulating Hormone 1.76 uIU/mL (0.47-4.68)
[2025-06-06 11:07] LABS: Microalbumi Creatinin Ratio Ur 10.0 ug/mg CR (<30)
== END ==
PROVIDERS: Family Provider Family Medicine; PCP Family Medicine; Referring Provider Family Medicine; Visit Provider Family Medicine
DX: E66.9 Obesity, unspecified (principal); E03.9 Hypothyroidism, unspecified; I10 Essential (primary) hypertension
CPT/HCPCS: 36415; 80053; 80061; 82043; 82570; 83036; 84443